=== PATIENT | male | born 1945 | race Caucasian/White ===

== ENCOUNTER → 2018-07-31 | Outpatient (CLI) | payer BC ==
[2018-07-31 11:50] LABS: HCT 45.4 % (39.0-53.0); HGB 14.3 gm/dL (13.0-17.5); MCH 28.7 pg (25.0-35.0); MCHC 31.5 g/dL (31.0-37.0); MCV 91.2 fL (80.0-100.0); Mean Platelet Volume 7.9; Platelet Count 164 k/uL (150-450); RBC 4.98 m/uL (4.30-5.90); RDW 13.1 % (11.5-15.5); WBC 18.7 k/uL (3.8-10.6)
[2018-07-31 13:23] LABS: Erythrocyte Sedimentation Rate 15 mm/hr (0-15)
[2018-07-31 16:52] LABS: C Reactive Protein 26.6 mg/dL (0.0-0.8); Uric Acid 6.6 mg/dL (3.7-8.7)
[2018-08-03 10:35] LABS: Appearance,BF Bloody
[2018-08-03 10:37] LABS: Nucleated Cells, Body Fluid 73500 /uL; RBC, Body Fluid 136500 /uL
[2018-08-03 10:38] LABS: Mononuclear WBC,Body Fluid 16 %; Polynuclear WBC,Body Fluid 83 %
== END | disposition home or self-care (01) ==
LOC: LABWHC1 10:26
PROVIDERS: ATTEND Orthopaedic Surgery
DX: M19.172 Post-traumatic osteoarthritis, left ankle and foot (principal); M10.9 Gout, unspecified; M25.572 Pain in left ankle and joints of left foot; Z98.890 Other specified postprocedural states
CPT/HCPCS: 36415; 84550; 85027; 85652; 86140; 87070; 87075; 87205; 89050; 89060

== ENCOUNTER 2018-08-01 09:58 | Inpatient (IN) | payer BC, MEDICARE ==
[2018-08-01] MEDS ORDERED: SODIUM CHLORIDE 0.9% 1,000 ML IV STA (10:17)
[2018-08-01] MEDS ORDERED: VANCOMYCIN IV PER PHARMACY 1 EACH MISC MISCELLANE PRN ×2 (10:18→17:37)
[2018-08-01] MEDS ORDERED: NALOXONE 0.4 MG/ML 1 ML VIAL IV PRN ×2 (10:19→11:51)
[2018-08-01] MEDS ORDERED: ACETAMINOPHEN TAB 325 MG TAB PO PRN (10:19)
--- NOTE | 2018-08-01 10:28 | ED ---
General Adult HPI - General Chief complaint: Extremity Problem,Nontraumatic Stated complaint: Septic lt ankle Time Seen by Provider: 08/01/18 10:07 Source: patient, RN notes reviewed, old records reviewed Mode of arrival: wheelchair Limitations: no limitations - History of Present Illness Initial comments: 72-year-old male with no significant past medical history presenting for evaluation of left ankle pain and swelling. Patient was sent in by his or thopedic surgeon for surgical washout of septic arthritis left ankle. Patient denies fever or chills. Symptoms have been progressive over the past 4 days. He has pain with ambulation, swelling and erythema of the left ankle. He did have one episode of nausea and vomiting 3 days ago. No other constitutional symptoms. Patient is otherwise healthy, no history diabetes. He had outpatient laboratory studies which showed elevated CRP, elevated white blood cell count. Gram stain of synovial fluid did show a positive cocci and patient was sent to the emergency department for preoperative evaluation. - Related Data Home Medications Medication Instructions Recorded Confirmed Turmeric Root Extract [Turmeric] 500 mg PO DAILY 08/01/18 08/01/18 Allergies Allergy/AdvReac Type Severity Reaction Status Date / Time No Known Allergies Allergy Verified 08/01/18 10:40 Review of Systems ROS Statement: Those systems with pertinent positive or pertinent negative responses have been documented in the HPI. ROS Other: All systems not noted in ROS Statement are negative. Past Medical History Past Medical History: No Reported History History of Any Multi-Drug Resistant Organisms: None Reported Past Surgical History: Orthopedic Surgery Past Psychological History: No Psychological Hx Reported Smoking Status: Never smoker Past Alcohol Use History: None Reported Past Drug Use History: None Reported General Exam Limitations: no limitations General appearance: alert, in no apparent distress Head exam: Present: atraumatic, normocephalic Eye exam: Present: normal appearance, PERRL ENT exam: Present: normal exam Neck exam: Present: normal inspection. Absent: tenderness Respiratory exam: Present: normal lung sounds bilaterally. Absent: respiratory distress, wheezes Cardiovascular Exam: Present: regular rate, normal rhythm GI/Abdominal exam: Present: soft. Absent: distended, tenderness, guarding Extremities exam: Present: joint swelling (Significant swelling and erythema of the left ankle, pain with range of motion, distal pulses are intact, normal cap refill.) Course Vital Signs 08/01/18 10:04 Temperature 98.2 F Pulse Rate 95 Respiratory 18 Rate Blood Pressure 115/70 O2 Sat by Pulse 98 Oximetry EKG Findings - EKG Comments: EKG Findings:: EKG: Normal sinus rhythm, left axis deviation, LVH, no ST segment elevation rate is 76, W[place] interval 150, QRS duration 94, QTC 436. Medical Decision Making - Medical Decision Making 72-year-old male presenting for left septic arthritis. Patient will receive perioperative clearance. EKG, chest x-ray, laboratory studies will be obtained. I did discuss case with Dr. Jaime, patient will be taken urgently to the operating room. We'll hold antibiotics at this time for cultures obtained in the OR. Repeat laboratory studies are pending. Chest x-ray will be obtained preoperatively. Pending - Lab Data Result diagrams: 08/01/18 10:30 Disposition Clinical Impression: Septic arthritis of left ankle Disposition: ADMITTED IP TO THIS HOSP Condition: Stable Is patient prescribed a controlled substance at d/c from ED?: No Decision to Admit Reason: Admit from EC Decision Date: 08/01/18 Decision Time: 10:28
[2018-08-01 10:39] LABS: Basophils % (A) 0 %; Eosinophils # (A) 0.1 k/uL (0-0.7); Eosinophils % (A) 1 %; HCT 43.2 % (39.0-53.0); HGB 14.4 gm/dL (13.0-17.5); Lymphocytes # (A) 0.7 k/uL (1.0-4.8); Lymphocytes % (A) 6 %; MCH 29.7 pg (25.0-35.0); MCHC 33.2 g/dL (31.0-37.0); MCV 89.3 fL (80.0-100.0); Mean Platelet Volume 7.6; Monocytes # (A) 0.7 k/uL (0-1.0); Monocytes % (A) 6 %; Neutrophils # (A) 10.9 k/uL (1.3-7.7); Neutrophils % (A) 86 %; Platelet Count 160 k/uL (150-450); RBC 4.84 m/uL (4.30-5.90); RDW 12.8 % (11.5-15.5); WBC 12.6 k/uL (3.8-10.6)
[2018-08-01 10:56] LABS: INR 0.9 (<1.2); Prothrombin Time 9.9 sec (9.0-12.0)
[2018-08-01 11:04] LABS: Albumin 3.2 g/dL (3.5-5.0); Calcium 8.9 mg/dL (8.4-10.2); Potassium 3.7 mmol/L (3.5-5.1); Total Protein 5.8 g/dL (6.3-8.2)
[2018-08-01] MEDS ORDERED: DIPH,PERTUS(ACELL)TETVAC-LF 0.5 ML VIAL IM ONE (11:12)
--- NOTE | 2018-08-01 11:14 | XR ---
EXAMINATION TYPE: XR chest 2V DATE OF EXAM: 08/01/2018 HISTORY: preop. REFERENCE: NONE. FINDINGS: The heart is mildly enlarged. There is mild vascular congestion without walter edema. Pleura l spaces are clear. IMPRESSION: MILD CARDIOMEGALY AND VASCULAR CONGESTION.
[2018-08-01] MEDS ORDERED: SODIUM CHLORIDE 0.9% 1,000 ML IV ONE (11:27)
[2018-08-01 11:38] LABS: C Reactive Protein 226.6 mg/L (<10.0)
--- NOTE | 2018-08-01 11:44 | P.HPOR ---
History of Present Illness H&P Date: 08/01/18 The patient is a very pleasant previously healthy 72-year-old male who is had a long-standing history of problems with his left ankle. The patient sustained a left ankle fracture close to 30 years ago area he underwent open reduction and internal fixation of both the medial and lateral malleolus at that time. He also required skin grafting over the lateral malleolus. He initially did well with no perioperative complications but over the years developed progressively worsening posttraumatic ankle arthritis. I've been seeing him for his ankle arthritis for the last several years. He was planning on having a total ankle replacement this coming summer. Over the last several days he has had increasing pain and swelling in the left ankle. He also reports feeling chills, a light fever, and generalized malaise. He developed increased pain to the point that he had difficulty walking. He presented to my office yesterday. His ankle was aspirated and a large amount of cloudy fluid was aspirated and sent to the lab. The initial laboratory analysis came back with abundant calcium pyroph osphate crystals. The patient was started on an NSAID. In addition to the lab finding calcium pyrophosphate crystals, I was called later in the evening and the synovial white count came back at 77,000 and the microbiologist noted Gram- positive cocci. The patient was called this morning and sent to the emergency department for a direct admission, incision and drainage in the operating room, and IV antibiotics. He continues to have pain and swelling in the left ankle. Past Medical History Past Medical History: No Reported History History of Any Multi-Drug Resistant Organisms: None Reported Past Surgical History: Orthopedic Surgery Past Psychological History: No Psychological Hx Reported Smoking Status: Never smoker Past Alcohol Use History: None Reported Past Drug Use History: None Reported Medications and Allergies Home Medications Medication Instructions Recorded Confirmed Type Turmeric Root Extract [Turmeric] 500 mg PO DAILY 08/01/18 08/01/18 History Allergies Allergy/AdvReac Type Severity Reaction Status Date / Time No Known Allergies Allergy Verified 08/01/18 10:40 Physical Examination A focused examination of the left ankle was conducted. On inspection there is diffuse swelling, erythema, and tenderness diffusely over the ankle. There is a healed incision over the medial malleolus. There is a healed skin graft over the lateral malleolus. There is exquisite pain with any attempts at range of motion of the ankle. Results The patient's lab work from yesterday included an elevated WBC count of 17 and a CRP of 26. Synovial fluid analysis showed a cell count of 77,000 and abundant calcium pyrophosphate crystals. The Gram stain showed gram-positive cocci. Cultures are still pending. X-rays from the office showed a healed bimalleolar ankle fracture with 2 screws in the medial malleolus, a plate and screw in the lateral malleolus and severe arthritis in the ankle. - Labs Labs: Abnormal Lab Results - Last 24 Hours (Table) 08/01/18 Range/Units 10:30 WBC 12.6 H (3.8-10.6) k/uL Neutrophils # 10.9 H (1.3-7.7) k/uL Lymphocytes # 0.7 L (1.0-4.8) k/uL H & H 08/01/18 Range/Units 10:30 Hgb 14.4 (13.0-17.5) gm/dL Hct 43.2 (39.0-53.0) % Coagulation 08/01/18 Range/Units 10:30 INR 0.9 (<1.2) Result Diagrams: 08/01/18 10:30 Assessment and Plan (1) Septic arthritis of left ankle Current Visit: Yes Status: Acute Code(s): M00.9 - PYOGENIC ARTHRITIS, UNSPECIFIED SNOMED Code(s): 56801072 Plan: I had a lengthy discussion with the patient on treatment options. The patient's clinical picture is consistent with both pseudogout and septic arthritis as he has both an elevated nucleated cell count of 77,000, calcium pyrophosphate crystals, and gram-positive cocci on Gram stain. My recommendation was to take the patient to the operating room and thoroughly irrigate and debride his joint. We will also take out the medial screws. Since the patient has acute onset pain and swelling and there is a skin graft over the lateral malleolus we discussed not taking out the lateral plate and screws at this time. We discussed the potential risks and Locations of surgery including but not limited to risk of anesthesia, superficial infection, deep infection, delayed wound healing, intraoperative fracture, postoperative fracture, continued infection requiring further workup and possibly more surgery, medical complications, and possibly loss of life or limb. The patient voiced his understanding of this and agreed to go forward with surgery. Following surgery the patient will be ad mitted under my care. We will request the assistance of infectious disease to guide trace of antibiotic, route of administration, and duration of treatment. Time with Patient: Greater than 30
[2018-08-01] MEDS ORDERED: SUCCINYLCHOLINE CHLORIDE 100 MG/5 ML SYR IV ONE (11:45)
[2018-08-01] MEDS ORDERED: PROPOFOL 10 MG/ML 20 ML VIAL IV ONE (11:45)
[2018-08-01] MEDS ORDERED: MIDAZOLAM 2 MG/2 ML VIAL ONE (11:45)
[2018-08-01] MEDS ORDERED: fentaNYL (PF) 50 MCG/ML 2 ML AMP ONE (11:45)
[2018-08-01] MEDS ORDERED: LIDOCAINE 1% INJ 10MG/ML (20 ML MDV) ONE (11:45)
[2018-08-01] MEDS ORDERED: ONDANSETRON 4 MG/2 ML VIAL ONE (11:45)
[2018-08-01] MEDS ORDERED: HYDROmorphone 0.5 MG/0.5 ML SYRINGE IVP PRN (11:51)
[2018-08-01] MEDS ORDERED: SODIUM CHLORIDE 0.9% 50 ML with ceFAZolin 2,000 MG IV ONE ×2 (12:13)
--- NOTE | 2018-08-01 13:03 | P.OP ---
Date of Procedure: 08/01/18 Preoperative Diagnosis: 1. Left septic ankle arthritis 2. Pre-existing left posttraumatic ankle arthritis Postoperative Diagnosis: Same Procedure(s) Performed: 1. Hardware removal deep, left ankle 2. Incision and drainage, left ankle 3. Irrigation and debridement, left ankle Anesthesia: VANESA Surgeon: Harjeet Jaime Estimated Blood Loss (ml): 25 IV fluids (ml): 750 Pathology: other (Deep cultures and tissue cultures sent to microbiology) Condition: stable Disposition: PACU Indications for Procedure: The patient is a very pleasant 72-year-old male with a long-standing history of problems with his left ankle. The patient sustained an ankle fracture 30 years ago postoperatively managed. He went on to develop posttraumatic ankle arthritis which I been managing. Over the last several days he developed increasing pain, redness, and swelling in the left ankle. He got to the point that the pain became so severe he had difficulty standing and walking. He presented to my office yesterday where his ankle was aspirated and sent to the lab. Initial lab results included extremely elevated calcium pyrophosphate crystals, gram-positive cocci on Gram stain, and elevated nucleated cell count of 77,000. He also had an elevated white blood count and CRP level. He was sent to the emergency department this morning and directed to the operating room. I met with the patient and his preoperatively to discuss treatment. My recommendation was to open the ankle and drain the infection. We discussed all the potential risks and complications including continued infection and need for further treatment. The patient provided his consent to go forward with surgery. Operative Findings: There was a large amount of cloudy, purulent fluid from inside the ankle joint that was more consistent with infection than crystalline arthropathy . Description of Procedure: The patient was identified in preoperative holding and the correct left ankle was marked with my initials. The patient was then brought back to the operating room by anesthesia. He was positioned on the OR table where a general anesthetic was administered. The left leg was then prepped and draped in the standard sterile fashion. A timeout was performed identifying the correct patient, operative extremity, and procedure. The patient's leg was then elevated for 2 minutes and the tourniquet was inflated to 250 mmHg. I began by outlining the scar over the medial malleolus with a skin marker. A 15 blade scalpel was used to make an incision directly over the scar. Dissection was carried down carefully to the subcutaneous tissue with tenotomy scissors. The ankle capsule was identified and sharply incised. There was a large brar of cloudy, purulent fluid. Culture swabs were then used to take deep cultures from inside the ankle joint. A small amount of the capsule was also sharply debrided and sent to pathology for cultures. Immediately after cultures were taken and antibiotics were given by anesthesia. Nonviable-appearing subcutaneous tissue, fat, and joint capsule were sharply debrided with a scalpel down to the level of the ankle joint. The wound was then thoroughly irrigated with 3 L of sterile saline and cystoscopy tubing. A 1/8 inch fenestrated drain was passed through the ankle joint and out the lateral capsule of the ankle. The capsule was closed using 0 Prolene. The deep subcutaneous tissue was closed using 2-0 Prolene, and the skin was closed using 3-0 nylon. The Hemovac drain was attached to its tubing. A sterile dressing and Jason wrap was applied. The patient was awoken from his anesthetic, transferred to a gurney, and brought to PACU without the procedure well. Plan: The patient is going to be admitted under my care. He can weight-bear as tolerated in a tall boot. Multiple sets of deep cultures have been taken and we are awaiting final results. Internal medicine has been consulted to help assist with perioperative medical management. Infectious disease has been consulted to assist with choice of antibiotic, route of administration, and duration of treatment.
--- NOTE | 2018-08-01 13:41 | FL ---
FLUOROSCOPY 2 seconds of fluoroscopy time were utilized during left ankle screw removal. 1 images document the pr ocedure.
[2018-08-01] MEDS: HYDROcodone/APAP 5-325MG 1 EACH TAB PO PRN ×2 (14:02→21:39)
[2018-08-01 14:10] LABS: Erythrocyte Sedimentation Rate 28 mm/hr (0-15)
[2018-08-01] MEDS ORDERED: VANCOMYCIN 1,750 MG in SODIUM CHLORIDE 0.9% 500 ML 500 ML IVPB STA (17:52)
[2018-08-02] MEDS ORDERED: VANCOMYCIN 1,750 MG in SODIUM CHLORIDE 0.9% 500 ML 500 ML IVPB SCH (06:00)
[2018-08-02] MEDS: HYDROcodone/APAP 5-325MG 1 EACH TAB PO PRN ×2 (08:10→16:11)
--- NOTE | 2018-08-02 08:48 | CONS ---
CONSULTATION DATE OF SERVICE: 08/01/2018. REASON FOR CONSULTATION: Left knee septic arthritis. HISTORY OF PRESENT ILLNESS: The patient is a 72-year-old, male with a past medical history significant for left ankle fracture that has been treated surgically about 30 years ago with insertion of hardware. The patient apparently has been dealing with pain, arthritis to the left ankle area and has been managed in outpatient setting by Dr. Medrano. The patient is still having a problem with the left ankle with increasing pain, redness and swelling that has been going on for the last few days. The patient denies a history of trauma or twisting of his ankle. The patient describes the pain to the left ankle area to be throbbing to sharp, almost 8 to 9/10, with no radiation with associated swelling and redness and warm to touch and the pain has been worse with walking, some relief with rest or elevation. With these symptoms, the patient was seen in the outpatient setting by Dr. Medrano. The patient did have aspirate of the left ankle with the Gram stain shows gram[place] [id number]. Subsequently the patient has been slated to go to the ER. The patient was admitted to hospital, taken to the OR and the patient was noticed to have an infected left ankle area. The patient is status post I and D of the left ankle with removal of hardware and deep cultures. The patient did receive a dose of cefazolin preoperatively and admitted to the hospital. Infectious Disease was consulted for further recommendation regarding antibiotic therapy. REVIEW OF SYSTEMS: CONSTITUTIONAL: Positive for weakness along with chills. EYES: No complaint. ENT: No complaint. RESPIRATORY: No complaint. CARDIOVASCULAR: No complaint. GENITOURINARY: No complaint. GASTROINTESTINAL: No complaint. MUSCULOSKELETAL: As per HPI. INTEGUMENTARY: As per HPI. PSYCHOLOGICAL: No complaint. ENDOCRINE: No complaint. NEUROLOGICAL: No complaint. PAST MEDICAL HISTORY: Left ankle fracture and left osteoarthritis. PAST SURGICAL HISTORY: Left ankle fracture repair. SOCIAL HISTORY: Denies smoking, drinking or drug use. FAMILY HISTORY: No pertinent findings noticed. ALLERGIES: No known drug allergies. MEDICATION: Medications include the patient is currently on Tylenol, [place], Dilaudid, Narcan, and cefazolin . PHYSICAL EXAMINATION: Blood pressure 102/62 with a pulse of 84, temperature 98.7. He is 93% on room air. General description is an elderly male lying in bed in no distress. No tachypnea or accessory muscle of respiration use. HEENT: Shows no pallor or scleral icterus. Oral mucosa membrane is dry. No pharyngeal erythema or thrush. NECK: Trachea central. No thyromegaly. LUNGS: Unlabored breathing. Clear to auscultation anteriorly. No wheeze or crackle. HEART: S1, S2. Regular rate and rhythm. ABDOMEN: Soft, no tenderness. No rigidity. EXTREMITIES: No edema feet. Examination of the left ankle currently status postoperative with dressing with no drainage on the dressing. NEUROLOGICALLY: The patient is awake, alert, oriented x3. Mood and affect normal. LABS: Hemoglobin 14.4, white count 4.6, BUN of 26, creatinine 1.2. Sed rate was 28, CRP elevated at 226. Cultures currently pending. DIAGNOSTIC IMPRESSION AND PLAN: Patient with left ankle septic arthritis with underlying infected hardware status post removal of the same with Gram stain done yesterday shows evidence of gram-positive cocci with elevated joint fluid, white count of 77,000 with concern likely septic arthritis and possible Staph aureus with question of possible MRSA versus MSSA. PLAN: 1. Vancomycin, pharmacy to dose, target trough of 15 while watching his kidney function closely. 2. Blood culture has been obtained to make sure the patient is not bacteremic. 3. If the blood cultures remains negative the patient may need a PICC line for outpatient IV antibiotic therapy which will be hopefully arranged on Friday. 4. We will follow up on clinical condition and culture to adjust the medication further if needed. Thank you for this consultation. Will follow this patient along with you. MMODL / IJN: [id number] /
[2018-08-02] MEDS: TAMSULOSIN 0.4 MG CAP.ER.24H PO SCH ×2 (08:55→16:08)
[2018-08-02] MEDS: ENOXAPARIN 40 MG/0.4 ML SYRINGE SQ SCH (09:02)
--- NOTE | 2018-08-02 09:48 | P.PN ---
Subjective Progress Note Date: 08/02/18 Principal diagnosis: Septic left ankle s/p removal of hardware and I&D Patient is seen at bedside this morning. He is postop day #1 from removal of hardware/I&D left ankle for suspected septic left ankle. He has pain at the surgical site as expected but denies any new complaints. He denies numbness, tingling or calf pain. Review of systems is negative for fever, chills, chest pain, shortness of breath or other Objective - Vital Signs Vital signs: Vital Signs Temp 98.0 F 08/02/18 08:11 Pulse 80 08/02/18 08:11 Resp 16 08/02/18 08:11 BP 108/64 08/02/18 08:11 Pulse Ox 96 08/02/18 08:11 Intake & Output 08/01/18 08/02/18 08/02/18 18:59 06:59 18:59 Intake Total 750 1100 980 Output Total 25 1502 Balance 725 -402 980 Weight 104.326 kg Intake: IV 750 Intake, IV Titration 1100 500 Amount Sodium Chloride 0.9% 1, 600 000 ml @ 75 mls/hr IV . [id number] STA Rx#:[id number] Vancomycin 1,750 mg In 500 500 Sodium Chloride 0.9% 500 ml 500 ml @ 167 mls/hr IVPB Q16H [facility] Rx#: [id number] Oral 480 Output: Drainage 2 Left Ankle 2 Urine 1500 Straight 1200 Estimated Blood Loss 25 Other: # Voids 0 - Exam Inspection reveals a benign surgical wound. There is bandage intact with drain in place. Drain has minimal output. There is no evidence of active bleeding or drainage through bandage. Neurovascular status is intact throughout the lower extremity with motor and sensation fully intact. Calf is soft and nontender. 2+ dorsalis pedis pulse and less than 2 second cap refill is present. - Constitutional General appearance: Present: no acute distress - Labs CBC & Chem 7: 08/01/18 10:30 08/01/18 10:30 Labs: Abnormal Lab Results - Last 24 Hours (Table) 08/01/18 08/01/18 Range/Units 10:30 10:30 WBC 12.6 H (3.8-10.6) k/uL Neutrophils # 10.9 H (1.3-7.7) k/uL Lymphocytes # 0.7 L (1.0-4.8) k/uL ESR 28 H (0-15) mm/hr BUN 36 H (9-20) mg/dL C-Reactive Protein 226.6 H (<10.0) mg/L Total Protein 5.8 L (6.3-8.2) g/dL Albumin 3.2 L (3.5-5.0) g/dL Microbiology - Last 24 Hours (Table) 08/01/18 12:10 Gram Stain - Preliminary Ankle - Left Tissue Culture - Preliminary Strep agalactiae - (group b) 08/01/18 12:10 Gram Stain - Preliminary Ankle - Left Wound Culture - Preliminary Strep agalactiae - (group b) 08/01/18 12:10 Gram Stain - Preliminary Ankle - Left Wound Culture - Preliminary Strep agalactiae - (group b) 08/01/18 12:10 Anaerobic Culture - Preliminary Ankle - Left 08/01/18 12:10 Anaerobic Culture - Preliminary Ankle - Left 08/01/18 12:10 Anaerobic Culture - Preliminary Ankle - Left Assessment and Plan (1) Septic arthritis of left ankle Narrative/Plan: Patient is doing well today. He will continue with routine postop orthopedic protocol including pain management, wound care, DVT prophylaxis and medical management. Infectious disease has consulted. Cultures are pending. Boot will be ordered and he may be weightbearing in boot only. Will make further recommendations as appropriate based on clinical course. Current Visit: Yes Status: Acute Priority: Medium Code(s): M00.9 - PYOGENIC ARTHRITIS, UNSPECIFIED SNOMED Code(s): 07074364 Time with Patient: Less than 30
--- NOTE | 2018-08-02 10:31 | P.CONS ---
History of Present Illness - Reason for Consult Consult date: 08/02/18 Medical management - History of Present Illness This is a pleasant 72-year-old gentleman who had a long-standing h istory of problems with his left ankle. Approximately 30 years ago, patient has sustained a left ankle fracture and underwent an open reduction with internal fixation of both the medial and lateral malleolus at that time. He also required skin grafting over the lateral malleolus. 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 He has been following up with Dr. Jaime for the ankle arthritis for several years. She was planning on having a total ankle replacement this summer. However over the last few days he experienced increased pain and swelling in the left ankle. He reported chills a light fever and generalized weakness. He had increased pain to the point that he found it difficult to walk. And presented to the orthopod's office for evaluation. In the office the ankle was aspirated and a large amount of cloudy fluid was removed and sent to lab. Analysis came back with abundant amount of calcium pyrophosphate crystals and synovial white count at 77,000 with gram-positive cocci. Patient underwent a incision and drainage in the operating room is placed on IV antibiotics. Patient denies any past medical history. Patient does complain of urinary retention and prostate related urinary difficulties that he uses a natural supplement. This morning patient is resting comfortably in bed with dressing and drain in place. Residual drainage noted in the drain. Patient is complaining of urinary retention bladder scan shows greater than 600 mL of urine, straight cath performed 2. Patient denies any pain with urination. Patient denies any fever, chills, malaise at this time. Review of Systems Review Of Systems: Constitutional: No fever, no chills, no night sweats. No weight change. No weakness, fatigue or lethargy. No daytime sleepiness. EENT: No headache. No blurred vision or double vision, no loss of vision. No loss of Hearing, no ringing in the ears, no dizziness. No nasal drainage or congestion. No epistaxis. No sore throat. Lungs: No shortness of breath, cough, no sputum production. No wheezing. Cardiovascular: No chest pain, no lower extremity edema. No palpitations. No paroxysmal nocturnal dyspnea. No orthopnea. No lightheadedness or dizziness. No syncopal episodes. Abdominal: no abdominal discomfort. No nausea, vomiting. no diarrhea. No constipation. No bloody or tarry stools. improved loss of appetite. Genitourinary: No dysuria, no frequency, no urgency. + urinary retention. Musculoskeletal: No myalgias. No muscle weakness, + gait dysfunction, no frequent falls. No back pain. No neck pain. Integumentary: No wounds, no lesions. No rash or pruritus. No unusual bruising. No change in hair or nails. Neurologic: No aphasia. No facial droop. No change in mentation. No head injury. No headache. No paralysis. No paresthesia. Psychiatric: No depression. No anxiety. No mood swings. Endocrine: No abnormal blood sugars. No weight change. No excessive sweating or thirst. Past Medical History Past Medical History: No Reported History, Prostate Disorder Additional Past Medical History / Comment(s): Gout History of Any Multi-Drug Resistant Organisms: None Reported Past Surgical History: Orthopedic Surgery Past Anesthesia/Blood Transfusion Reactions: No Reported Reaction Past Psychological History: No Psychological Hx Reported Smoking Status: Never smoker Past Alcohol Use History: None Reported Past Drug Use History: None Reported Additional History: Family history: Mom at 87 related to lung issues, dad 88 related to age. One brother-healthy, 1 sister- from metastatic lung cancer. 2 children-healthy. Currently works 28-30 hours a week at [employer]. Medications and Allergies Home Medications Medication Instructions Recorded Confirmed Type Turmeric Root Extract [Turmeric] 500 mg PO DAILY 08/01/18 08/01/18 History Allergies Allergy/AdvReac Type Severity Reaction Status Date / Time No Known Allergies Allergy Verified 08/01/18 10:40 Physical Exam Vitals: Vital Signs Temp Pulse Pulse Pulse Resp BP BP 08/02/18 08:11 98.0 F 80 16 108/64 08/02/18 02:40 98.1 F 83 17 105/59 08/01/18 19:15 98.7 F 84 17 102/62 08/01/18 19:10 18 08/01/18 15:30 88 109/69 08/01/18 15:15 88 109/62 08/01/18 15:00 89 112/72 08/01/18 14:45 92 118/73 08/01/18 14:30 96 117/70 03/23/19 14:15 91 127/75 08/01/18 14:00 89 137/76 08/01/18 13:45 92 145/81 08/01/18 13:30 98.3 F 99 16 143/76 08/01/18 13:22 92 16 154/67 08/01/18 13:10 103 H 16 163/93 08/01/18 12:55 98.3 F 100 16 124/75 08/01/18 11:29 85 116/71 08/01/18 11:23 98.8 F 84 18 119/65 Pulse Ox 08/02/18 08:11 96 08/02/18 02:40 95 08/01/18 19:15 96 08/01/18 19:10 08/01/18 15:30 08/01/18 15:15 08/01/18 15:00 08/01/18 14:45 08/01/18 14:30 08/01/18 14:15 08/01/18 14:00 08/01/18 13:45 08/01/18 13:30 97 08/01/18 13:22 95 08/01/18 13:10 94 L 08/01/18 12:55 92 L 08/01/18 11:29 96 08/01/18 11:23 98 Intake and Output 08/01/18 08/02/18 08/02/18 22:59 06:59 14:59 Intake Total 1100 980 Output Total 902 600 Balance 198 -600 980 Intake: Intake, IV Titration 1100 500 Amount Sodium Chloride 0.9% 1, 600 000 ml @ 75 mls/hr IV . [id number] STA Rx#:[id number] Vancomycin 1,750 mg In 500 500 Sodium Chloride 0.9% 500 ml 500 ml @ 167 mls/hr IVPB Q16H [facility] Rx#: [id number] Oral 480 Output: Drainage 2 Left Ankle 2 Urine 900 600 Straight 900 300 Other: # Voids 0 General Appearance: Alert, cooperative, no distress, appears stated age. Neck HEENT: Supple, no lymphadenopathy, no thyroid enlargement, no carotid bruits. Lungs: Clear to auscultation without crackles or wheezes no rhonchi, no d eformity. Chest Wall: Chest wall normal expansion with deep inspiration no tenderness and no deformity was found on exam, no costochondral pain or discomfort. Heart: Regular rate and rhythm, S1, S2 normal, no murmur, rub or gallop. Back: Symmetric, no curvature, ROM normal, no CVA tenderness. Abdomen: Soft, non-tender, no rebound or rigidity, no hepatosplenomegaly. Extremities: Remedies dressing and drainage placed clean and dry dressing is noted to have residual sanguinous drainage, 1+ edema to left lower extremity, no edema to right lower extremity, no cyanosis. Pulses: 2+ and symmetric. Skin: Skin color, texture, tugor normal, no rashes or lesions. Neurologic: Alert oriented x3 cranial nerves II through XII intact, no motor deficit, no abnormal balance or gait Results CBC & Chem 7: 08/01/18 10:30 08/01/18 10:30 Labs: Abnormal Lab Results - Last 24 Hours (Table) 08/01/18 08/01/18 Range/Units 10:30 10:30 WBC 12.6 H (3.8-10.6) k/uL Neutrophils # 10.9 H (1.3-7.7) k/uL Lymphocytes # 0.7 L (1.0-4.8) k/uL ESR 28 H (0-15) mm/hr BUN 36 H (9-20) mg/dL C-Reactive Protein 226.6 H (<10.0) mg/L Total Protein 5.8 L (6.3-8.2) g/dL Albumin 3.2 L (3.5-5.0) g/dL Microbiology - Last 24 Hours (Table) 08/01/18 12:10 Gram Stain - Preliminary Ankle - Left Tissue Culture - Preliminary Strep agalactiae - (group b) 08/01/18 12:10 Gram Stain - Preliminary Ankle - Left Wound Culture - Preliminary Strep agalactiae - (group b) 08/01/18 12:10 Gram Stain - Preliminary Ankle - Left Wound Culture - Preliminary Strep agalactiae - (group b) 08/01/18 12:10 Anaerobic Culture - Preliminary Ankle - Left 08/01/18 12:10 Anaerobic Culture - Preliminary Ankle - Left 08/01/18 12:10 Anaerobic Culture - Preliminary Ankle - Left Assessment and Plan Plan: 1. Septic arthritis of left ankle. Postsurgical intervention of hardware removal, incision and drainage and irrigation and debridement of left ankle. Dressing and drain in place. Continue vancomycin. Continue pain management of [place], Tylenol, Dilaudid as needed. 2. Urinary retention. Start Flomax 0.4 mg twice a day today and then once daily. Continue to bladder scan and straight cath as needed. 3. Gout. Uric acid, sed rate, C-reactive protein ordered. 4. BPH. As noted above. 5. DVT prophylaxis. Lovenox 40 mg subcu daily. 6. GI prophylaxis. Protonix. Discharge plan: Possibly home with continued IV antibiotics. Impression and plan of care have been directed as dictated by the signing physician. Denae Escobar nurse practitioner acting as scribe for signing physician.
[2018-08-02] MEDS ORDERED: PANTOPRAZOLE 40 MG/10 ML VIAL IVP SCH (10:45)
[2018-08-02] MEDS: ceFAZolin IN SWFI 2 GM/20 ML SYRINGE IVP SCH (16:09)
[2018-08-02] MEDS ORDERED: TAMSULOSIN 0.4 MG CAP.ER.24H PO SCH (18:30)
--- NOTE | 2018-08-02 22:46 | PN ---
PROGRESS NOTE DATE OF SERVICE: 07/05/2018 REASON FOR FOLLOWUP: Left ankle septic arthritis. INTERVAL HISTORY: The patient is currently afebrile. He is breathing comfortably. Pain to the left leg is currently improved. Denies any chest pain, shortness of breath or cough. No abdominal pain or diarrhea. PHYSICAL EXAMINATION: Blood pressure 107/64 with a pulse of 84, temperature 98.6; he is 93% on room air. General description is an elderly male lying in bed in no distress. Respiratory system: Unlabored breathing, clear to auscultation anteriorly. Heart S1, S2. Regular rate and rhythm. Abdomen soft, no tenderness. Left leg is currently dressed. No obvious drainage on the dressing. LABS: Hemoglobin is 14.4, white count 12.3, BUN of 26, creatinine 1.22. DIAGNOSTIC IMPRESSION AND PLAN: Patient with left ankle septic arthritis status post I and D and removal of the hardware on the lateral side with the culture showing group B strep. Antibiotic will be switched to cefazolin 2 g q.8 hours. The patient will get a PICC line tomorrow for continuation of IV antibiotic therapy in the outpatient setting for at least 6 weeks with weekly monitoring of CBC, BMP and sed rate. Questions were answered. MMODL / IJN: [id number] /
[2018-08-03] MEDS: ceFAZolin IN SWFI 2 GM/20 ML SYRINGE IVP SCH ×4 (00:10→23:54)
[2018-08-03] MEDS: HYDROcodone/APAP 5-325MG 1 EACH TAB PO PRN ×4 (00:35→22:13)
[2018-08-03] MEDS: TAMSULOSIN 0.4 MG CAP.ER.24H PO SCH (08:23)
[2018-08-03] MEDS: PANTOPRAZOLE 40 MG TABLET PO SCH (08:24)
[2018-08-03] MEDS: ENOXAPARIN 40 MG/0.4 ML SYRINGE SQ SCH (08:25)
[2018-08-03 08:28] LABS: Basophils % (A) 0 %; Eosinophils # (A) 0.4 k/uL (0-0.7); Eosinophils % (A) 5 %; HCT 39.1 % (39.0-53.0); HGB 12.8 gm/dL (13.0-17.5); Lymphocytes # (A) 1.1 k/uL (1.0-4.8); Lymphocytes % (A) 14 %; MCH 29.4 pg (25.0-35.0); MCHC 32.6 g/dL (31.0-37.0); MCV 89.9 fL (80.0-100.0); Mean Platelet Volume 8.2; Monocytes # (A) 0.5 k/uL (0-1.0); Monocytes % (A) 6 %; Neutrophils # (A) 5.6 k/uL (1.3-7.7); Neutrophils % (A) 72 %; Platelet Count 204 k/uL (150-450); RBC 4.35 m/uL (4.30-5.90); RDW 13.3 % (11.5-15.5); WBC 7.7 k/uL (3.8-10.6)
[2018-08-03 08:44] LABS: Calcium 8.3 mg/dL (8.4-10.2); Potassium 4.5 mmol/L (3.5-5.1); Uric Acid 5.2 mg/dL (3.5-8.5)
[2018-08-03 11:25] LABS: C Reactive Protein 164.1 mg/L (<10.0)
[2018-08-03 11:47] LABS: Erythrocyte Sedimentation Rate 53 mm/hr (0-15)
--- NOTE | 2018-08-03 13:08 | P.PN ---
Subjective Progress Note Date: 08/03/18 This patient is a 72-year-old male with a long-standing history of problems with his left ankle. He was seen as an outpatient by Dr. Jaime, and was seen in the office last week when his ankle was aspirated and sent to the lab. Initial lab results included extremely elevated calcium pyrophosphate crystals, gram- positive cocci on Gram stain, and elevated nucleated cell count of 77,000. He also had an elevated white blood count and CRP level. He was sent to the emergency department Friday morning and was directed to the operating room for a hardware removal and I and D of the left ankle with Dr. Jaime on 08/01/18. Today is post-operative day #2. Patient is examined bedside this morning. The patient states he is doing well, his pain is well-controlled currently. He has not yet been up walking yet, he states it is hard to get the equalizer boot on with the drain in place. He denies fevers, chills, or malaise. He denies nausea, vomiting. He denies numbness, tingling of the left lower extremity. He has no new concerns or complaints today. Vital signs stable. Objective - Vital Signs Vital signs: Vital Signs Temp 98.2 F 08/03/18 07:11 Pulse 80 08/03/18 07:11 Resp 17 08/03/18 02:30 BP 138/75 08/03/18 07:11 Pulse Ox 94 L 08/03/18 07:11 Intake & Output 08/02/18 08/03/18 08/03/18 18:59 06:59 18:59 Intake Total 1180 1250 Output Total 1200 1600 Balance -20 -350 Intake: Intake, IV Titration 500 1150 Amount Sodium Chloride 0.9% 1, 150 000 ml @ 75 mls/hr IV . [id number] STA Rx#:[id number] Sodium Chloride 0.9% 50 1000 ml @ 0 mls/hr IV .STK-MED ONE with ceFAZolin 2,000 mg Rx#:[id number] Vancomycin 1,750 mg In 500 Sodium Chloride 0.9% 500 ml 500 ml @ 167 mls/hr IVPB Q16H [facility] Rx#: [id number] Oral 480 100 Other 200 Output: Urine 1200 1600 Straight 1200 700 - Exam On examination, the patient is sitting up in bed in no acute distress. The patient is alert and orientated x3. On inspection of the left lower extremity, there is an TIFFANIE wrap in place. Dressing is taken down and reveals a drain in place of the medial ankle, and intact sutures on the lateral ankle. There is no surrounding erythema, warmth, or drainage from the incisions. Patient is able to wiggle his toes without issue. Right foot is warm and well-perfused with brisk capillary refill. Neurovascular is intact of the right lower extremity. Right calf is soft and nontender. Drain has minimal output and is removed. - Labs CBC & Chem 7: 08/03/18 07:46 08/03/18 07:46 Labs: Abnormal Lab Results - Last 24 Hours (Table) 08/03/18 08/03/18 Range/Units 07:46 07:46 Hgb 12.8 L (13.0-17.5) gm/dL ESR 53 H (0-15) mm/hr BUN 25 H (9-20) mg/dL Glucose 135 H (74-99) mg/dL Calcium 8.3 L (8.4-10.2) mg/dL C-Reactive Protein 164.1 H (<10.0) mg/L Microbiology - Last 24 Hours (Table) 08/01/18 10:30 Blood Culture - Preliminary Blood No Growth after 48 hours 08/01/18 12:10 Gram Stain - Final Ankle - Left Tissue Culture - Final Strep agalactiae - (group b) 08/01/18 12:10 Gram Stain - Final Ankle - Left Wound Culture - Final Strep agalactiae - (group b) 08/01/18 12:10 Gram Stain - Final Ankle - Left Wound Culture - Final Strep agalactiae - (group b) Assessment and Plan Assessment: Post operative day #2: Septic left ankle s/p removal of hardware and I&D Plan: - Weight bearing as tolerated in equalizer boot only. Dressing changed today and drain removed. - Continue pain management and DVT prophylaxis. - Physical therapy consulted for gait training. - Appreciate medicine and infectious disease consults. Antibiotics per infectious disease, cultures showing group B strep. - Possible discharge within next [address] Jaime.
--- NOTE | 2018-08-03 14:55 | P.PN ---
Subjective Progress Note Date: 08/03/18 This is a pleasant 72-year-old gentleman who had a long-standing history of problems with his left ankle. Approximately 30 years ago, patient has sustained a left ankle fracture and underwent an open reduction with internal fixation of both the medial and lateral malleolus at that time. He als o required skin grafting over the lateral malleolus. 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 He has been following up with Dr. Jaime for the ankle arthritis for several years. She was planning on having a total ankle replacement this summer. However over the last few days he experienced increased pain and swelling in the left ankle. He reported chills a light fever and generalized weakness. He had increased pain to the point that he found it difficult to walk. And presented to the orthopod's office for evaluation. In the office the ankle was aspirated and a large amount of cloudy fluid was removed and sent to lab. Analysis came back with abundant amount of calcium pyrophosphate crystals and synovial white count at 77,000 with gram-positive cocci. Patient underwent a incision and drainage in the operating room is placed on IV antibiotics. Patient denies any past medical history. Patient does complain of urinary retention and prostate related urinary difficulties that he uses a natural supplement. This morning patient is resting comfortably in bed with dressing and drain in place. Residual drainage noted in the drain. Patient is complaining of urinary retention bladder scan shows greater than 600 mL of urine, straight cath performed 2. Patient denies any pain with urination. Patient denies any fever, chills, malaise at this time. 08/03: Patient is currently on Kefzol management Dr. Polk. Plan is for him have a PICC line placed tomorrow and discharged home on IV antibiotics. Temperature max is afternoon 101.1 the blood pressure 130/71, pulse ox 93% on room air. Patient did require straight catheterization 2 times during the night for 400 mL to 900 ML's. Plan today is to increase activity improve her for discharge possibly tomorrow. Review of Systems Review Of Systems: Constitutional: No fever, no chills, no night sweats. No weight change. No weakness, fatigue or lethargy. No daytime sleepiness. EENT: No headache. No blurred vision or double vision, no loss of vision. No loss of Hearing, no ringing in the ears, no dizziness. No nasal drainage or congestion. No epistaxis. No sore throat. Lungs: No shortness of breath, cough, no sputum production. No wheezing. Cardiovascular: No chest pain, no lower extremity edema. No palpitations. No paroxysmal nocturnal dyspnea. No orthopnea. No lightheadedness or dizziness. No syncopal episodes. Abdominal: no abdominal discomfort. No nausea, vomiting. no diarrhea. No constipation. No bloody or tarry stools. improved loss of appetite. Genitourinary: No dysuria, no frequency, no urgency. + urinary retention. Musculoskeletal: No myalgias. No muscle weakness, + gait dysfunction, no frequent falls. No back pain. No neck pain. Integumentary: No wounds, no lesions. No rash or pruritus. No unusual bruising. No change in hair or nails. Neurologic: No aphasia. No facial droop. No change in mentation. No head injury. No headache. No paralysis. No paresthesia. Psychiatric: No depression. No anxiety. No mood swings. Endocrine: No abnormal blood sugars. No weight change. No excessive sweating or thirst. Objective - Vital Signs Vital signs: Vital Signs Temp 101.1 F H 08/03/18 14:34 Pulse 97 08/03/18 14:34 Resp 17 08/03/18 02:30 BP 138/71 08/03/18 14:34 Pulse Ox 93 L 08/03/18 14:34 Intake & Output 08/02/18 08/03/18 08/03/18 18:59 06:59 18:59 Intake Total 1180 1250 Output Total 1200 1600 700 Balance -20 -350 -700 Intake: Intake, IV Titration 500 1150 Amount Sodium Chloride 0.9% 1, 150 000 ml @ 75 mls/hr IV . [id number] [facility]A Rx#:[id number] Sodium Chloride 0.9% 50 1000 ml @ 0 mls/hr IV .STK-MED ONE with ceFAZolin 2,000 mg Rx#:[id number] Vancomycin 1,750 mg In 500 Sodium Chloride 0.9% 500 ml 500 ml @ 167 mls/hr IVPB Q16H [facility] Rx#: [id number] Oral 480 100 Other 200 Output: Urine 1200 1600 700 Straight 1200 700 700 - Exam General Appearance: Alert, cooperative, no distress, appears stated age. Neck HEENT: Supple, no lymphadenopathy, no thyroid enlargement, no carotid bruits. Lungs: Clear to auscultation without crackles or wheezes no rhonchi, no defo rmity. Chest Wall: Chest wall normal expansion with deep inspiration no tenderness and no deformity was found on exam, no costochondral pain or discomfort. Heart: Regular rate and rhythm, S1, S2 normal, no murmur, rub or gallop. Back: Symmetric, no curvature, ROM normal, no CVA tenderness. Abdomen: Soft, non-tender, no rebound or rigidity, no hepatosplenomegaly. Extremities: large dressing in place with splint to the left lower extremity, 1+ edema to left lower extremity, no edema to right lower extremity, no cyanosis. Pulses: 2+ and symmetric. Skin: Skin color, texture, tugor normal, no rashes or lesions. Neurologic: Alert oriented x3 cranial nerves II through XII intact, no motor deficit, no abnormal balance or gait - Labs CBC & Chem 7: 08/03/18 07:46 08/03/18 07:46 Labs: Abnormal Lab Results - Last 24 Hours (Table) 08/03/18 08/03/18 Range/Units 07:46 07:46 Hgb 12.8 L (13.0-17.5) gm/dL ESR 53 H (0-15) mm/hr BUN 25 H (9-20) mg/dL Glucose 135 H (74-99) mg/dL Calcium 8.3 L (8.4-10.2) mg/dL C-Reactive Protein 164.1 H (<10.0) mg/L Microbiology - Last 24 Hours (Table) 08/01/18 12:10 Anaerobic Culture - Preliminary Ankle - Left 08/01/18 12:10 Anaerobic Culture - Preliminary Ankle - Left 08/01/18 12:10 Anaerobic Culture - Preliminary Ankle - Left 08/01/18 10:30 Blood Culture - Preliminary Blood No Growth after 48 hours 08/01/18 12:10 Gram Stain - Final Ankle - Left Tissue Culture - Final Strep agalactiae - (group b) 08/01/18 12:10 Gram Stain - Final Ankle - Left Wound Culture - Final Strep agalactiae - (group b) 08/01/18 12:10 Gram Stain - Final Ankle - Left Wound Culture - Final Strep agalactiae - (group b) Assessment and Plan Plan: 1. Septic arthritis of left ankle. Postsurgical intervention of hardware removal, incision and drainage and irrigation and debridement of left ankle. Dressing and drain in place. Continue vancomycin. Continue pain management of [place], Tylenol, Dilaudid as needed. 2. Urinary retention. Start Flomax 0.4 mg twice a day today and then once daily. Continue to bladder scan and straight cath as needed. Patient does straight cath at home. 3. Gout. Uric acid, sed rate, C-reactive protein ordered. 4. BPH. As noted above. 5. DVT prophylaxis. Lovenox 40 mg subcu daily. 6. GI prophylaxis. Protonix. Discharge plan: Possibly home with continued IV antibiotics. PICC line ordered for tomorrow. Dr. Polk will clarify IV antibiotics. Impression and plan of care have been directed as dictated by the signing physician. Jessica Avalos nurse practitioner acting as scribe for signing physician.
--- NOTE | 2018-08-04 00:28 | PN ---
PROGRESS NOTE DATE OF SERVICE: 08/03/2018. REASON FOR FOLLOWUP: Group B strep, left ankle septic arthritis. INTERVAL HISTORY: The patient is seen. The patient is afebrile, did spike a fever of 101.1 degrees Fahrenheit. The patient's drainage has been discontinued. Denies any worsening pain to the left ankle area. Denies any chest pain. No shortness of breath or cough. No abdominal pain or any diarrhea. PHYSICAL EXAMINATION: Blood pressure 132/71 with a pulse of 97, temperature 101.1. He is 92% on room air. GENERAL DESCRIPTION: An elderly male lying in bed in no distress. HEENT: No pallor or scleral icterus. LUNGS: Unlabored breathing. Clear to auscultation anteriorly. HEART: S1, S2. Regular rate and rhythm. ABDOMEN: Soft, no tenderness. Left ankle is currently dressed up. No obvious drainage on the dressing. LABS: White count normal. Blood culture has been negative so far. DIAGNOSTIC IMPRESSION AND PLAN: Patient with left knee septic arthritis with infected hardware, status post I and D and removal of the hardware. The patient now with new fever. Blood cultures repeated. We will also check an influenza swab. Repeat CBC in the morning. If persistent fever, further workup will be needed. Continue Cefazolin at this point. Continue supportive care. MMODL / IJN: [id number] /
[2018-08-04 02:58] VITALS: RESP 16
[2018-08-04] MEDS: TAMSULOSIN 0.4 MG CAP.ER.24H PO SCH (07:36)
[2018-08-04] MEDS: PANTOPRAZOLE 40 MG TABLET PO SCH (07:36)
[2018-08-04] MEDS: HYDROcodone/APAP 5-325MG 1 EACH TAB PO PRN (07:36)
[2018-08-04] MEDS: ceFAZolin IN SWFI 2 GM/20 ML SYRINGE IVP SCH (07:37)
[2018-08-04 08:06] VITALS: BP 135/69; PULSE 83; TEMP 99.3
[2018-08-04 08:22] LABS: Potassium 4.5 mmol/L (3.5-5.1)
[2018-08-04 08:28] LABS: Basophils % (A) 0 %; Eosinophils # (A) 0.3 k/uL (0-0.7); Eosinophils % (A) 3 %; HCT 39.8 % (39.0-53.0); HGB 13.1 gm/dL (13.0-17.5); Lymphocytes % (A) 11 %; MCH 29.2 pg (25.0-35.0); MCHC 32.8 g/dL (31.0-37.0); MCV 89.1 fL (80.0-100.0); Mean Platelet Volume 8.1; Monocytes # (A) 0.6 k/uL (0-1.0); Monocytes % (A) 6 %; Neutrophils # (A) 7.1 k/uL (1.3-7.7); Neutrophils % (A) 78 %; Platelet Count 255 k/uL (150-450); RBC 4.47 m/uL (4.30-5.90); WBC 9.1 k/uL (3.8-10.6)
[2018-08-04] MEDS ORDERED: LIDOCAINE 1% INJ 10MG/ML (20 ML MDV) SQ ONE (08:56)
--- NOTE | 2018-08-04 09:41 | CDI ---
Documentation Clarification Form Date: 08/04/2018 9:27:55 AM From: Nury MoranOdenLAVON, CCDS Admit Date: 08/01/2018 10:19:00 AM Patient Name: Odell Reza Visit Number: [id number] Discharge Date: ATTENTION: The Clinical Documentation Specialists (CDI) and [facility] Coding Staff appreciate your assistance in clarifying documentation. Please respond to the clarification below the line at the bottom and electronically sign. The CDI & [facility] Coding staff will review the response and follow-up if needed. Please note: Queries are made part of the Legal Health Record. If you have any questions, please contact the author of this message via ITS. Dr. Harjeet Jaime: Per the 08/01 Procedure Note: "Irrigation and debridement, left ankle. " "A small amount of the capsule was also sharply debrided and sent to pathology for cultures. Immediately after cultures were taken and antibiotics were given by anesthesia. Nonviable-appearing subcutaneous tissue, fat, and joint capsule were sharply debrided with a scalpel down to the level of the ankle joint." History/Risk Factors: Fracture of left ankle approximately 30 years ago. Gout, BPH with urinary retention. Clinical Indicators: Presented to ER with severe pain & swelling to left ankle, previously scheduled for a left total ankle replacement later this year. Diagnosed with left septic ankle arthritis. Pre-existing left post traumatic ankle arthritis. Procedure: Hardware removal deep, left ankle. I&D, Irrigation & debridement left ankle. Treatment: IV fl rate 75, IV Rocephin preop, IM DTP vaccine, IV Dilaudid, IV Vancomycin, IV Kefzol. Possible PICC line for home antibiotics (pending). Five elements required for accurate and compliant documentation of a debridement: 1. Technique used (e.g., excisional, excised, cutting, etc.) 2. Instrument(s) used (e.g., scalpel, curette, etc.) 3. Nature of the tissue removed (e.g., necrotic, devitalized tissues, non- viable tissue, etc.) 4. Appearance and size of the wound (e.g., down to fresh bleeding tissue, 7cm x 10cm, etc.) 5. Depth of the debridement* (e.g., skin, subcutaneous tissue, fascia, muscle, bone, etc.) In order to capture the severity of condition and code the appropriate procedure; could you please document the following: Excisional debridement (the removal of necrotic, devitalized tissue or slough by means of cutting away of tissue) Non-excisional debridement (the removal of necrotic, devitalized tissue or slough by means of flushing, brushing, or washing. (Irrigation) Other; please specify Unable to determine (Last Revision: August 2017) MTDD
[2018-08-04] MEDS: ENOXAPARIN 40 MG/0.4 ML SYRINGE SQ SCH (11:23)
--- NOTE | 2018-08-04 13:47 | PN ---
PROGRESS NOTE DATE OF SERVICE: 08/04/2018 REASON FOR FOLLOWUP: Left ankle septic arthritis, Group B strep. INTERVAL HISTORY: The patient is afebrile. No further fever has reported since yesterday evening. The patient denies having any chest pain or shortness of breath or cough. No nausea, vomiting or worsening pain to the left ankle area. PHYSICAL EXAMINATION: On examination, blood pressure 135/69 with a pulse of 83, temperature 99.3. He is 94% on room air. General description is an elderly male lying in bed in no distress. RESPIRATORY SYSTEM: Unlabored breathing, clear to auscultation anteriorly. HEART: S1, S2. Regular rate and rhythm. ABDOMEN: Soft, no tenderness. Left ankle is currently dressed up, no obvious drainage on the dressing. LABS: Hemoglobin 13.1, white count 9.1. BUN of 21, creatinine 0.98. DIAGNOSTIC IMPRESSION AND PLAN: Patient with left ankle septic arthritis, status post removal of the hardware. Cultures with group B strep. Patient sedimentation rate 53, CRP 164. Plan at this time is to continue Rocephin 2 grams daily for 6 weeks, weekly monitoring of CBC, BMP and sedimentation rate. Follow up in the office in one week. Prescription was written for the patient. Questions were answered. MMODL / IJN: [id number] /
--- NOTE | 2018-08-04 15:29 | P.DS ---
Providers Date of admission: 08/01/18 10:19 Attending physician: Harjeet Jaime Consults: 08/01/18 10:19 Consult Physician Routine Consulting Provider: Wade Dewitt Consult Reason/Comments: Septic ankle, medical management Do you want consulting provider notified?: Yes 08/01/18 11:54 Consult Physician Routine Consulting Provider: Chloé Polk Consult Reason/Comments: left ankle possible septic arthritis Do you want consulting provider notified?: Yes Primary care physician: [facility] Course: This patient is a 72-year-old male with a long-standing history of problems with his left ankle. The patient originally sustained an ankle fracture over 30 years ago, and an ORIF was performed. The patient went on to develop post-traumatic arthritis, which Dr. Jaime has been managing as an outpatient. Patient began to experience an increase in pain, swelling, and erythema in the left ankle and was seen in the office last Friday07/31/18, when his ankle was aspirated and the aspirate was sent to the lab. Initial lab results included extremely elevated calcium pyrophosphate crystals, gram-positive cocci on Gram stain, and elevated nucleated cell count of 77,000. He also had an elevated white blood count and CRP level. He was sent to the emergency department Friday morning and was directed to the operating room for a hardware removal and I and D of the left ankle with Dr. Jaime on 08/01/18. The procedure was performed without complication or sequelae. The patient was admitted following the procedure for an internal medicine and infectious disease consultation. The patient is doing fairly well postoperatively. Vital signs and labs are stable on postoperative day #3. Patient was examined bedside this morning. The patient states he was up with therapy yesterday, and it was mildly painful to bear weight on the left ankle while wearing the boot. Patient has been tolerating his diet well, he also had a bowel movement this morning. The patient states his pain is currently well- controlled. He denies chest pain, shortness of breath, nausea, vomiting, fevers, chills, or malaise. On examination, the patient is sitting in bed in no acute distress. Patient is alert and orientated x3. On inspection of the left lower extremity, there is an TIFFANIE wrap in place. Dressing is taken down, minimal seroanguinous drainage present on dressing. Intact sutures on the lateral ankle, drain site present on medial ankle. There is no surrounding erythema, warmth, or drainage from the incisions. Patient is able to wiggle his toes without issue. Left foot is warm and well-perfused with brisk capillary refill. Neurovascular is intact of the left lower extremity. Bilateral calves are soft and nontender. Patient is discharged home in good condition, pending medical and infectious disease clearance. Patient will follow up with Dr. Jaime in office in 1 week. Please see [facility] for accurate list of discharge medications. Pertinent Studies: Synovial fluid analysis on 07/31/18 showed a cell count of 77,000 and abundant calcium pyrophosphate crystals. The Gram stain showed gram-positive cocci. Cultures show group b step. Blood cultures show no growth after 72 hours. X-rays from the office on 07/31/18 showed a healed bimalleolar ankle fracture with 2 screws in the medial malleolus, a plate and screw in the lateral malleolus and severe arthritis in the ankle. Patient Condition at Discharge: Stable Plan - Discharge Summary Discharge Rx Participant: Yes New Discharge Prescriptions: New Tamsulosin [Flomax] 0.4 mg PO PC-BRKFST #30 cap.er.24h Aspirin 325 mg PO DAILY #14 tab Docusate [Colace] 100 mg PO BID #60 capsule Hydrocodone/Acetaminophen [[place] 5-325] 1 tab PO Q6HR PRN #40 tab PRN Reason: Pain Discontinued Turmeric Root Extract [Turmeric] 500 mg PO DAILY Discharge Medication List Tamsulosin [Flomax] 0.4 mg PO PC-BRKFST #30 cap.er.24h 08/03/18 [Rx] Aspirin 325 mg PO DAILY #14 tab 08/04/18 [Rx] Docusate [Colace] 100 mg PO BID #60 capsule 08/04/18 [Rx] Hydrocodone/Acetaminophen [[place] 5-325] 1 tab PO Q6HR PRN #40 tab 08/04/18 [Rx] Follow up Appointment(s)/Referral(s): [facility], [NON-STAFF] - [facility],Infusion [NON-STAFF] - Silvestre Quigley DO [Primary Care Provider] - 1 Week (office will call with appointment time) Chloé Polk MD [STAFF PHYSICIAN] - 08/11/18 2:30 pm Harjeet Jaime MD [Medical Doctor] - 08/14/18 9:30 am Mercedes King [NON-STAFF] - Ambulatory/Diagnostic Orders: Basic Metabolic Panel [LAB.AMB] Location: None Selected C Reactive Protein [LAB.AMB] Location: None Selected Complete Blood Count w/diff [LAB.AMB] Location: None Selected Erythrocyte Sedimentation Rate [LAB.AMB] Location: None Selected Patient Instructions/Handouts: How to Catheterize Yourself (Man) (GEN), Joint Incision and Drainage (DC), Peripherally Inserted Central Catheters and Midline Catheters (DC) Activity/Diet/Wound Care/Special Instructions: 1. [facility] will deliver IV antibiotics to the home on by 12:00 pm on 08/05/18. They will call patient before delivery. 2. [facility] will contact patient to schedule first visit. They will help patient learn how to administer home antibiotics starting 08/05/18. 3. Boot - delivered to bedside by Phillip - Weight bearing as tolerated on the operative leg while wearing the equalizer boot only. - Dressing may be changed daily. - Take pain medications as prescribed. Take aspirin for blood clot prevention. Take Colace as a stool softener. Use antibiotics as instructed by the infectious disease team. - Elevate and ice operative leg to help reduce swelling and control pain. - Follow-up appointment with Dr. Jaime in the office in 1 week. Call the office with any questions or concerns, Discharge Disposition: HOME WITH HOME HEALTH SERVICES
--- NOTE | 2018-08-06 10:17 | IR ---
PICC LINE PLACEMENT: HISTORY: Infection requiring long-term antibiotic therapy PROCEDURE: Ultrasound and fluoroscopic guidance of PICC line placement. COMPLICATIONS: None ANESTHESIA: 1. 1% Lidocaine locally. FINDINGS/TECHNIQUE: The procedure was explained to the patient. The risks, complications, benefits and alternatives were discussed and any questions were answered. Informed consent was obtained. The patient was placed supine on the fluoroscopic table and prepped and draped in the usual sterile fash ion. Utilizing a 21 gauge needle and sonographic and fluoroscopic guidance, access in the left basi lic vein was achieved and there is placement of a 0.018 guidewire. The vein is patent. A 4-F sheath was placed over the guidewire. The guidewire and dilator were removed and a 4-F. PICC line was plac ed through the sheath with the tip at the level of the SVC. The sheath was removed, the catheter was flushed and sutured into position. The patient was stable throughout the procedure and remained sta ble upon discharge from the Department of Radiology. The vein puncture was patent under ultrasound. A cohen scale image was obtained to document patency of the vein punctured. All elements of the maximal barrier technique were utilized. FLUOROSCOPY TIME: 0.3 minutes and one image submitted IMPRESSION: Successful PICC line placement under ultrasound and fluoroscopic guidance.
== END 2018-08-04 13:54 | disposition home health service (06) | DRG 494 ==
LOC: EC 09:58 → 4SSUR 10:19
PROVIDERS: ADMIT Orthopaedic Surgery; ATTEND Orthopaedic Surgery
PROC: 0SBG0ZZ Excision of Left Ankle Joint, Open Approach (ICD-10-PCS; principal; 2018-08-01 11:10)
PROC: 02HV33Z Insertion of Infusion Device into Superior Vena Cava, Percutaneous Approach (ICD-10-PCS; 2018-08-01 11:10)
DX: M00.9 Pyogenic arthritis, unspecified (principal); M11.272 Other chondrocalcinosis, left ankle and foot; M19.072 Primary osteoarthritis, left ankle and foot; M19.172 Post-traumatic osteoarthritis, left ankle and foot; R33.9 Retention of urine, unspecified; B95.1 Streptococcus, group B, as the cause of diseases classified elsewhere
CPT/HCPCS: 36415; 36573; 71046; 80048; 80053; 83605; 84550; 85025; 85027; 85610; 85652; 85730; 86140; 86850; 86900; 86901; 87040; 87070; 87075; 87205; 87502; 89050; 89060; 90715; 93005; 96360; 99285

== ENCOUNTER → 2018-09-15 | Outpatient (CLI) | payer MEDICARE ==
[2018-09-15 10:58] LABS: Basophils % (A) 1 %; Eosinophils # (A) 0.3 k/uL (0-0.7); Eosinophils % (A) 4 %; HGB 15.2 gm/dL (13.0-17.5); Lymphocytes # (A) 1.5 k/uL (1.0-4.8); Lymphocytes % (A) 20 %; MCH 28.8 pg (25.0-35.0); MCHC 31.6 g/dL (31.0-37.0); Mean Platelet Volume 6.7; Monocytes # (A) 0.4 k/uL (0-1.0); Monocytes % (A) 5 %; Neutrophils % (A) 69 %; Platelet Count 248 k/uL (150-450); RBC 5.28 m/uL (4.30-5.90); RDW 13.6 % (11.5-15.5); WBC 7.3 k/uL (3.8-10.6)
[2018-09-15 11:06] LABS: Anion Gap 7 mmol/L; Blood Urea Nitrogen 23 mg/dL (9-20); C Reactive Protein <5.0 mg/L (<10.0); Calcium 9.8 mg/dL (8.4-10.2); Carbon Dioxide 29 mmol/L (22-30); Chloride 106 mmol/L (98-107); Glucose 90 mg/dL (74-99); Potassium 4.8 mmol/L (3.5-5.1); Sodium 142 mmol/L (137-145)
[2018-09-15 13:16] LABS: Erythrocyte Sedimentation Rate 5 mm/hr (0-15)
== END | disposition home or self-care (01) ==
LOC: LABWHC1 10:08
PROVIDERS: ATTEND Internal Medicine Infectious Disease
DX: M00.9 Pyogenic arthritis, unspecified (principal)
CPT/HCPCS: 36415; 80048; 85025; 85652; 86140

== ENCOUNTER → 2018-09-28 | Outpatient (CLI) | payer MEDICARE ==
--- NOTE | 2018-09-28 15:06 | US ---
EXAMINATION TYPE: US venous doppler duplex LE LT DATE OF EXAM: 09/28/2018 2:57 PM COMPARISON: NONE CLINICAL HISTORY: M79.89 soft tissue disorders. Right ankle surgery 2 months ago, intermittent right lower leg and foot pain and swelling since surgery. SIDE PERFORMED: Left TECHNIQUE: The lower extremity deep venous system is examined utilizing real time linear array sonog mónica with graded compression, doppler sonography and color-flow sonography. VESSELS IMAGED: External Iliac Vein (EIV) Common Femoral Vein Deep Femoral Vein Greater Saphenous Vein * Femoral Vein Popliteal Vein Small Saphenous Vein * Proximal Calf Veins (* superficial vessels) Left Leg: Appears negative for DVT IMPRESSION: 1. No evidence of DVT as visualized.
== END | disposition home or self-care (01) ==
LOC: RADUSWWP 14:29
PROVIDERS: ATTEND Internal Medicine Infectious Disease
DX: M79.89 Other specified soft tissue disorders (principal)

== ENCOUNTER → 2019-07-13 | Outpatient (CLI) | payer MEDICARE ==
[2019-07-13 10:32] LABS: HCT 44.7 % (39.0-53.0); HGB 14.5 gm/dL (13.0-17.5); MCH 29.4 pg (25.0-35.0); MCHC 32.4 g/dL (31.0-37.0); Mean Platelet Volume 7.7; Platelet Count 258 k/uL (150-450); RBC 4.91 m/uL (4.30-5.90); RDW 13.1 % (11.5-15.5); WBC 5.4 k/uL (3.8-10.6)
[2019-07-13 11:28] LABS: Eosinophils # (M) 0.11 k/uL (0-0.7); Lymphocytes # (M) 1.94 k/uL (1.0-4.8); Monocytes # (M) 0.16 k/uL (0-1.0); Neutrophils # (M) 3.19 k/uL (1.3-7.7); Neutrophils % (M) 59 %; Nucleated Red Blood Cells 0 /100 WBC (0-0); Total Cells Counted 100
[2019-07-13 11:29] LABS: Large Platelets Present
[2019-07-13 13:34] LABS: Erythrocyte Sedimentation Rate 6 mm/hr (0-15)
== END | disposition home or self-care (01) ==
LOC: LABWHC1 09:13
PROVIDERS: ATTEND Orthopaedic Surgery
DX: M10.9 Gout, unspecified (principal); M19.172 Post-traumatic osteoarthritis, left ankle and foot; M25.572 Pain in left ankle and joints of left foot; Z48.89 Encounter for other specified surgical aftercare
CPT/HCPCS: 36415; 85025; 85652; 86140

== ENCOUNTER → 2020-01-11 | Outpatient (CLI) | payer MEDICARE | END | disposition home or self-care (01) | LOC: LABWHC1 12:04 | PROVIDERS: ATTEND Urology | DX: R97.20 Elevated prostate specific antigen [PSA] (principal) | CPT/HCPCS: 36415; 84153 ==

== ENCOUNTER → 2020-06-28 | Outpatient (CLI) | payer MEDICARE | END | disposition home or self-care (01) | LOC: RADMRIMAIN 08:13 | PROVIDERS: ATTEND Urology | DX: Z53.9 Procedure and treatment not carried out, unspecified reason (principal) ==

== ENCOUNTER → 2020-07-19 | Outpatient (CLI) | payer MEDICARE ==
--- NOTE | 2020-07-19 13:22 | MR ---
EXAMINATION TYPE: MR Prostate wo/w con DATE OF EXAM: 07/19/2020 COMPARISON: None. IMAGE QUALITY: . INDICATION: Elevated prostate specific antigen PSA: 12.1 ng/ml on January 11, 2020 Recent Biopsy and Date: April 06, 2019 Pathology Report (If Applicable): Prostatitis. No malignancy. TECHNIQUE: Examination was performed using a 3T MRI without an endorectal coil. Multiparametric imaging was perf ormed with T2 mutliplanar sequences, axial diffusion weighted imaging and dynamic contrast enhanced i maging, utilizing 11 mL intravenous Gadavist gadolinium contrast. FINDINGS: There is no clinically significant cancer identified. PROSTATE VOLUME: 8.1 cm SI x 5.4 cm AP x 6.0 cm LR Vol= 137.4 cc Predicted PSA equals 16.49. PSA DENSITY: 0.09 ng/ml/cc Markedly enlarged prostate gland with transitional zone hypertrophy is present. Peripheral zone is ma rkedly thinned without significant diminished signal on ADC mapping or increased signal on diffusion- weighted imaging. There is marked heterogeneity of the transitional zone without areas of circumscrib ed irregular hypointense tissue. Small 4 mm hemorrhagic or proteinaceous cyst in the left mid zone no debbie coronal image 15 for reference. Prostate capsule maintained. No adjacent adenopathy. Mild to moderate trabeculation and wall thickening in the bladder. There is narrow neck Left inferior diverticulum seen left pelvis best image 28 series 301 measuring roughly 7.4 x 1.3 cm. Cranial cauda l length at least 6 cm coronal image 9. Smaller right-sided diverticulum noted image 39 and probable posterior right aspect axial image 27 series 301 is difficult to show latter communication but is li shaun present on image 38 series 501. Visualized osseous structures are intact. No suspicious groin hernia or adenopathy seen. IMPRESSION: Markedly enlarged prostate gland consistent with BPH. There is outlet obstruction with bl adder wall mild to moderate distention and wall trabeculation and thickening. There are at least 3 bl adder diverticula with largest noted along the left aspect partially imaged on current study. A focus of clinically significant cancer is not identified. Highest Assessment Category: 1 MRI Stage: T0 N0 M0 based on review of pelvic images. False negative rates for MRI range from 5-20% depending on risk profile. Assessment Categories: 1 ? Very low (clinically significant cancer is highly unlikely to be present) 2 ? Low (clinically significant cancer is unlikely to be present) 3 ? Intermediate (the presence of clinically significant cancer is equivocal) 4 ? High (clinically significant cancer is likely to be present) 5 ? Very high (clinically significant cancer is highly likely to be present)
== END | disposition home or self-care (01) ==
LOC: RADMRIMAIN 08:05
PROVIDERS: ATTEND Urology
DX: N40.0 Benign prostatic hyperplasia without lower urinary tract symptoms (principal); N32.89 Other specified disorders of bladder; N32.3 Diverticulum of bladder; N32.0 Bladder-neck obstruction
CPT/HCPCS: 72197; A9585

== ENCOUNTER → 2024-09-16 | Outpatient (CLI) | payer MEDICARE ==
--- NOTE | 2024-09-16 16:52 | US ---
EXAMINATION TYPE: US kidneys/renal and bladder DATE OF EXAM: 09/16/2024 COMPARISON: MR prostate 07/19/2020 CLINICAL INDICATION: Male, 78 years old with history of R79.9 ABNORMAL FINDING OF BLOOD CHEMISTRY, UN SPECI; enlarged prostate. Pt states voiding problems TECHNIQUE: Grayscale imaging of the bilateral kidneys and urinary bladder: FINDINGS: EXAM MEASUREMENTS: Right Kidney: 11.9 x 4.8 x 4.8 cm Left Kidney: 9.8 x 6.7 x 3.4 cm Right Kidney: No hydronephrosis or masses seen Left Kidney: mild hydro seen Bladder: diverticulum seen on right side. Posterior wall appears thickened and irregular Bilateral Jets seen: right seen No shadowing calculi bilaterally. No right hydronephrosis. Mild left hydronephrosis. No renal masses identified. Diverticulum along the right urinary bladder. There is posterior wall thickening and irre gularity of the urinary bladder. Only the right ureteral jet is identified. Prominent prostate gland measuring 4.7 x 3.3 x 2.6 cm. IMPRESSION: 1. Mild left hydronephrosis. 2. Posterior urinary bladder wall thickening and irregularity which probably relates to medial lobe h ypertrophy of the prostate gland however underlying neoplasm is not excluded. Consider further evalua tion with CT urogram. 3. Urinary bladder diverticulum. [facility], , 09/16/2024 4:49 PM
[2024-09-17 01:48] LABS: Appearance,Urine Turbid (Clear); Bilirubin,Urine Negative (Negative); Blood,Urine Large (Negative); Color,Urine Yellow (Yellow); Ketones,Urine Trace (Negative); Nitrite,Urine Negative (Negative); PH, Urine 5.5; Specific Gravity,Urine 1.018 (1.001-1.030); Urobilinogen,Urine 0.2 E.U./DL
[2024-09-17 02:00] LABS: ALT 18 U/L (10-49); AST 21 U/L (14-35); Albumin 4.1 g/dL (3.8-4.9); Albumin/Globulin Ratio 1.58 Ratio (1.60-3.17); Alkaline Phosphatase 82 U/L (41-126); BUN/Creat Ratio 14.67 Ratio (12.00-20.00); Blood Urea Nitrogen 26.4 mg/dL (9.0-27.0); Calcium 9.3 mg/dL (8.7-10.3); Carbon Dioxide 23.7 mmol/L (21.6-31.8); Chloride 106 mmol/L (96-109); Globulin 2.6 g/dL (1.6-3.3); Glucose 81 mg/dL (70-110); Magnesium 2.2 mg/dL (1.5-2.4); Phosphorus 3.2 mg/dL (2.4-5.1); Potassium 4.5 mmol/L (3.5-5.5); Sodium 142 mmol/L (135-145); Total Bilirubin <0.2 mg/dL (0.3-1.2); Total Protein 6.7 g/dL (6.2-8.2)
[2024-09-17 02:36] LABS: Basophils # (A) 0.06 X 10*3/uL (0.00-0.10); Basophils % (A) 0.6 %; Eosinophils # (A) 0.34 X 10*3/uL (0.04-0.35); Eosinophils % (A) 3.7 %; HCT 44.5 % (39.6-50.0); HGB 13.6 g/dL (13.0-17.0); Lymphocytes % (A) 19.4 %; MCH 28.3 pg (27.0-32.0); MCHC 30.6 g/dL (32.0-37.0); MCV 92.5 FL (80.0-97.0); Mean Platelet Volume 9.9 FL (9.5-12.2); Monocytes # (A) 0.67 X 10*3/uL (0.20-1.00); Monocytes % (A) 7.2 %; NRBC Per 100 WBC 0 X 10*3/uL (0.00-0.01); Neutrophils # (A) 6.36 X 10*3/uL (1.80-7.70); Neutrophils % (A) 68.8 %; Platelet Count 315 X 10*3/uL (140-440); RBC 4.81 X 10*6/uL (4.40-5.60); RDW 13.1 % (11.5-14.5); WBC 9.26 X 10*3/uL (4.50-10.00)
[2024-09-17 03:34] LABS: Bacteria,Urine 3+ (None Seen)
== END | disposition home or self-care (01) ==
LOC: RADUSWWP 15:21
PROVIDERS: ATTEND Internal Medicine
DX: N13.30 Unspecified hydronephrosis (principal); N32.89 Other specified disorders of bladder; R79.9 Abnormal finding of blood chemistry, unspecified; N32.3 Diverticulum of bladder
CPT/HCPCS: 76770; 80053; 81001; 82043; 82570; 83735; 84100; 85025

== ENCOUNTER 2024-10-14 13:54 | Inpatient (IN) | payer MEDICARE ==
[2024-10-14] MEDS: SODIUM CHLORIDE 0.9% 1,000 ML IV ONE (14:56)
[2024-10-14 15:00] LABS: Basophils # (A) 0.02 10*3/uL (0.00-0.10); Basophils % (A) 0.2 %; Eosinophils # (A) 0.11 10*3/uL (0.04-0.35); HCT 35.2 % (39.6-50.0); HGB 11.9 g/dL (13.0-17.0); Lymphocytes # (A) 1.12 10*3/uL (0.90-5.00); Lymphocytes % (A) 9.7 %; MCH 28.3 pg (27.0-32.0); MCHC 33.8 g/dL (32.0-37.0); MCV 83.6 fL (80.0-97.0); Mean Platelet Volume 9.4 fL (9.5-12.2); Monocytes % (A) 7.8 %; Neutrophils # (A) 9.34 10*3/uL (1.80-7.70); Neutrophils % (A) 80.8 %; Platelet Count 424 10*3/uL (140-440); RBC 4.21 10*6/uL (4.40-5.60); RDW 12.5 % (11.5-14.5); WBC 11.55 10*3/uL (4.50-10.00)
--- NOTE | 2024-10-14 15:05 | ED ---
General Adult HPI - General Chief complaint: Urogenital Stated complaint: Urogenital Time Seen by Provider: 10/14/24 14:09 Source: patient, RN notes reviewed Mode of arrival: ambulatory Limitations: no limitations - History of Present Illness Initial comments: 78-year-old male presents emergency department complaint of urinary retention. Patient states that he feels like cannot urinate states he sometimes has urgency and goes and when she has leaking. Patient states he is did see a doffer recently and secondary to worsening kidney function states he saw his primary had an ultrasound was unsure of the results. Patient mentions that he sometimes has blood in his urine has been going on for a while. States his Abdominal swelling relieves this related to urinary retention. - Related Data Previous Rx's Medication Instructions Recorded Tamsulosin [Flomax] 0.4 mg PO PC-BRKFST #30 cap.er.24h 08/03/18 Aspirin 325 mg PO DAILY #14 tab 08/04/18 Docusate [Colace] 100 mg PO BID #60 capsule 08/04/18 Hydrocodone/Acetaminophen [[place] 1 tab PO Q6HR PRN #40 tab 08/04/18 5-325] Allergies Allergy/AdvReac Type Severity Reaction Status Date / Time No Known Allergies Allergy Verified 10/14/24 14:07 Review of Systems ROS Statement: Those systems with pertinent positive or pertinent negative responses have been documented in the HPI. ROS Other: All systems not noted in ROS Statement are negative. Past Medical History Past Medical History: No Reported History, Prostate Disorder Additional Past Medical History / Comment(s): Gout History of Any Multi-Drug Resistant Organisms: None Reported Past Surgical History: Orthopedic Surgery Past Anesthesia/Blood Transfusion Reactions: No Reported Reaction Past Psychological History: No Psychological Hx Reported Smoking Status: Never smoker Past Alcohol Use History: None Reported Past Drug Use History: None Reported General Exam Limitations: no limitations General appearance: alert, in no apparent distress Head exam: Present: atraumatic, normocephalic, normal inspection Eye exam: Present: normal appearance, PERRL, EOMI. Absent: scleral icterus, conjunctival injection, periorbital swelling ENT exam: Present: normal exam, mucous membranes moist Neck exam: Present: normal inspection. Absent: tenderness, meningismus, lymphadenopathy Respiratory exam: Present: normal lung sounds bilaterally. Absent: respiratory distress, wheezes, rales, rhonchi, stridor Cardiovascular Exam: Present: normal rhythm, tachycardia, normal heart sounds. Absent: systolic murmur, diastolic murmur, rubs, gallop, clicks GI/Abdominal exam: Present: soft, tenderness, normal bowel sounds. Absent: distended, guarding, rebound, rigid Course Vital Signs 10/14/24 10/14/24 10/14/24 14:04 14:56 16:01 Temperature 98.4 F 98.7 F 98.6 F Pulse Rate 126 H 120 H 118 H Respiratory 18 18 18 Rate Blood Pressure 113/72 118/73 130/78 O2 Sat by Pulse 95 97 100 Oximetry Medical Decision Making - Medical Decision Making Was pt. sent in by a medical professional or institution (, PA, MATERIALS RECYCLER, urgent care, hospital, or retirement...) When possible be specific @ -No Did you speak to anyone other than the patient for history (EMS, parent, family, police, friend...)? What history was obtained from this source @ -No Did you review nursing and triage notes (agree or disagree)? Why? @ -I reviewed and agree with nursing and triage notes Were old charts reviewed (outside hosp., previous admission, EMS record, old EKG, old radiological studies, urgent care reports/EKG's, retirement records)? Report findings @ -No old charts were reviewed Differential Diagnosis (chest pain, altered mental status, abdominal pain women, abdominal pain men, vaginal bleeding, weakness, fever, dyspnea, syncope, headache, dizziness, GI bleed, back pain, seizure, CVA, palpatations, mental health, musculoskeletal)? @ -Differential Abdominal Pain Men: Appendicitis, cholecystitis, diverticulosis, ischemic bowel, pancreatitis, hepatitis, UTI, gastroenteritis, AAA, incarcerated hernia, bowel obstruction, constipation, inflammatory bowel, hepatitis, peptic ulcer disease, splenic infarction, perforated viscus, testicular torsion, this is not meant to be an all-inclusive list EKG interpreted by me (3pts min.). @ - as above X-rays interpreted by me (1pt min.). @ -None done CT interpreted by me (1pt min.). @ -CT abdomen pelvis without contrast showing evidence of abnormal bladder, prostate with bilateral hydronephrosis hydroureter U/S interpreted by me (1pt. min.). @ -None done What testing was considered but not performed or refused? (CT, X-rays, U/S, labs)? Why? @ -None What meds were considered but not given or refused? Why? @ -None Did you discuss the management of the patient with other professionals (professionals i.e. , PA, MATERIALS RECYCLER, lab, RT, psych nurse, social service assistant, head shipper, teacher, chief creative officer, patient case coordinator)? Give summary @ -Discussed case with Dr. Wheeler for admission with consults. I did discuss case with Dr. Negron recommends Loya catheter which was already placed. Discussed case with nephrology regarding acute renal failure and hyperkalemia recommends hyperkalemia cocktail, bicarb drip 3 A@75 an hour Was smoking cessation discussed for >3mins.? @ -No Was critical care preformed (if so, how long)? @ -35 minutes Were there social determinants of health that impacted care today? How? (Homelessness, low income, unemployed, alcoholism, drug addiction, transportation, low edu. Level, literacy, decrease access to med. care, long-term, rehab)? @ -No Was there de-escalation of care discussed even if they declined (Discuss DNR or withdrawal of care, Hospice)? DNR status @ -No What co-morbidities impacted this encounter? (DM, HTN, Smoking, COPD, CAD, Cancer, CVA, ARF, Chemo, Hep., AIDS, mental health diagnosis, sleep apnea, morbid obesity)? @ -None Was patient admitted / discharged? Hospital course, mention meds given and route, prescriptions, significant lab abnormalities, going to OR and other pertinent info. @ -Admitted patient found to be in acute renal failure likely postrenal, structural process secondary to bladder mass prostate mass and concerns for cancer. Patient received hyperkalemia cocktail, bicarb drip, repeat laboratory studies, continue I's and O's, nephrology and urology evaluation Undiagnosed new problem with uncertain prognosis? @ -No Drug Therapy requiring intensive monitoring for toxicity (Heparin, Nitro, Insulin, Cardizem)? @ -No Were any procedures done? @ -No Diagnosis/symptom? @ -Bladder mass, hematuria, acute renal failure, hyperkalemia Acute, or Chronic, or Acute on Chronic? @ -Acute Uncomplicated (without systemic symptoms) or Complicated (systemic symptoms)? @ -Complicated Side effects of treatment? @ -No Exacerbation, Progression, or Severe Exacerbation? @ -No Poses a threat to life or bodily function? How? (Chest pain, USA, SD, pneumonia, PE, COPD, DKA, ARF, appy, cholecystitis, CVA, Diverticulitis, Homicidal, Suicidal, threat to staff... and all critical care pts) @ -Yes end organ failure - Lab Data Result diagrams: 10/14/24 14:53 10/14/24 14:53 Lab Results 10/14/24 10/14/24 10/14/24 Range/Units 14:45 14:53 14:53 WBC 11.55 H (4.50-10.00) 10*3/uL RBC 4.21 L (4.40-5.60) 10*6/uL Hgb 11.9 L (13.0-17.0) g/dL Hct 35.2 L (39.6-50.0) % MCV 83.6 (80.0-97.0) fL MCH 28.3 (27.0-32.0) pg MCHC 33.8 (32.0-37.0) g/dL Plt Count 424 (140-440) 10*3/uL MPV 9.4 L (9.5-12.2) fL Immature Gran % (Auto) 0.5 % Neutrophils % 80.8 % Lymphocytes % 9.7 % Monocytes % 7.8 % Eosinophils % 1.0 % Basophils % 0.2 % Immature Gran # 0.06 H (0.00-0.04) 10*3/uL Neutrophils # 9.34 H (1.80-7.70) 10*3/uL Lymphocytes # 1.12 (0.90-5.00) 10*3/uL Monocytes # 0.90 (0.20-1.00) 10*3/uL Eosinophils # 0.11 (0.04-0.35) 10*3/uL Basophils # 0.02 (0.00-0.10) 10*3/uL Sodium 130 L (137-145) mmol/L Potassium 7.3 H* (3.5-5.1) mmol/L Chloride 97 L (98-107) mmol/L Carbon Dioxide 14 L (22-30) mmol/L Anion Gap 19 mmol/L BUN 165 H* (9-20) mg/dL Creatinine 13.39 H* (0.66-1.25) mg/dL Est GFR (CKD-EPI)AfAm 4 (>60 ml/min/1.73 sqM) Est GFR (CKD-EPI)NonAf 3 (>60 ml/min/1.73 sqM) Glucose 148 H (74-99) mg/dL Calcium 8.9 (8.4-10.2) mg/dL Total Bilirubin 0.4 (0.2-1.3) mg/dL AST 19 (17-59) U/L ALT 22 (4-49) U/L Alkaline Phosphatase 67 (38-126) U/L Total Protein 5.7 L (6.3-8.2) g/dL Albumin 3.2 L (3.5-5.0) g/dL Urine Color Dark Red Urine Appearance Bloody (Clear) Urine RBC >182 H (0-5) /hpf Urine WBC >182 H (0-5) /hpf Urine WBC Clumps Many H (None) /hpf - EKG Data -: EKG Interpreted by Me EKG Comments: EKG performed at 15: 04 sinus tachycardia rate of 121 MD 190 QRS 112 QT/QTc 282/354 Critical Care Time Critical Care Time: Yes Total Critical Care Time: 35 Disposition Clinical Impression: Bladder mass, Bilateral hydronephrosis, Hydroureter, Acute renal failure, Hyperkalemia Disposition: ADMITTED IP TO THIS [facility] Condition: Serious Referrals: Janay Wheeler MD [Primary Care Provider] - 1-2 days Time of Disposition: 16:29
[2024-10-14 15:16] LABS: RBC,Urine >182 /hpf (0-5); WBC,Urine >182 /hpf (0-5)
[2024-10-14 15:19] LABS: Appearance,Urine Bloody (Clear); Color,Urine Dark Red
[2024-10-14 15:21] LABS: ALT 22 U/L (4-49); AST 19 U/L (17-59); African American GFR (CKD) 4 (>60 ml/min/1.73 sqM); Albumin 3.2 g/dL (3.5-5.0); Alkaline Phosphatase 67 U/L (38-126); Anion Gap 19 mmol/L; Calcium 8.9 mg/dL (8.4-10.2); Carbon Dioxide 14 mmol/L (22-30); Chloride 97 mmol/L (98-107); Glucose 148 mg/dL (74-99); Non-African American GFR(CKD) 3 (>60 ml/min/1.73 sqM); Sodium 130 mmol/L (137-145); Total Bilirubin 0.4 mg/dL (0.2-1.3); Total Protein 5.7 g/dL (6.3-8.2)
[2024-10-14 15:56] LABS: Potassium 7.3 mmol/L (3.5-5.1)
[2024-10-14 15:57] LABS: Blood Urea Nitrogen 165 mg/dL (9-20)
--- NOTE | 2024-10-14 15:57 | CT ---
EXAMINATION TYPE: CT abdomen pelvis wo con DATE OF EXAM: 10/14/2024 COMPARISON: None CLINICAL INDICATION: Male, 78 years old with history of Hematuria; PHH, HEMATURIA. TECHNIQUE: CT scan of the abdomen and pelvis is performed without oral or IV contrast. CT DLP: 867.[address] CTDI: mGy Automated exposure control for dose reduction was used. FINDINGS: Within the limitations of a non-contrast study, the following observations are made. The lungs are clear. Gallbladder is normal and there is no gallstone, wall thickening, pericholecystic fluid or distention . There is no biliary ductal dilatation. There is no organomegaly of the liver, pancreas, spleen or adrenal glands. There is moderate to marked left renal atrophy. There is moderate bilateral hydronephrosis and hydrou reter. There are no renal or ureteral calcifications. There is a Loya catheter within the urinary bl adder but there appears to be marked thickening of the urinary bladder wall and bilateral ill-defined mildly hypodense masses within the bilateral pelvis consistent with adenopathy or other neoplasm. Th e prostate gland is ill-defined. The caliber of the abdominal aorta is normal and there is no retroperitoneal adenopathy or hemorrhage . The bowel loops are normal in caliber is no evidence of obstruction. No inflammatory changes are iden tified in the mesentery and there is no free intraperitoneal air or fluid. The osseous structures and soft tissues are unremarkable. IMPRESSION: 1. Moderate to marked left renal atrophy. 2. No renal calcifications. 3. moderate hydronephrosis and hydroureter. 4. Ill-definition of the pelvic structures including the urinary bladder and prostate gland but there is a high suspicion for bilateral pelvic adenopathy or neoplasm either arising from the prostate gla nd or urinary bladder. Further evaluation with contrast is recommended. [facility], , 10/14/2024 3:55 PM
[2024-10-14] MEDS ORDERED: NALOXONE 0.4 MG/ML 1 ML VIAL IV PRN (16:26)
[2024-10-14] MEDS ORDERED: ACETAMINOPHEN TAB 325 MG TAB PO PRN (16:26)
[2024-10-14] MEDS ORDERED: ONDANSETRON 4 MG/2 ML VIAL IVP PRN (16:26)
[2024-10-14 16:27] LABS: Glucose,Whole Blood 136 mg/dL (70-110)
[2024-10-14] MEDS: INSULIN REGULAR 100 UNIT/ML VIAL (IV) IV ONE ×2 (16:39→21:26)
[2024-10-14] MEDS: CALCIUM GLUCONATE IN NACL 1 GM in SALINE 1 100ML.BAG IVPB ONE (16:42)
[2024-10-14] MEDS: SODIUM BICARB 8.4% 50 ML SYR (1 MEQ/ML) IV ONE (16:43)
[2024-10-14] MEDS: DEXTROSE 50% SYRINGE 50 ML IVP ONE (16:44)
[2024-10-14] MEDS: SODIUM ZIRCONIUM CYCLOSILICATE 10 GM PACKET PO ONE (16:45)
[2024-10-14] MEDS: SODIUM CHLORIDE 0.9% 1,000 ML IV SCH (16:49)
[2024-10-14 16:59] LABS: Potassium 7.3 mmol/L (3.5-5.1)
[2024-10-14 17:44] LABS: Glucose,Whole Blood 76 mg/dL (70-110)
[2024-10-14] MEDS: DEXTROSE 5% IN WATER 1,000 ML with SODIUM BICARB (1 MEQ/ML) 150 ML IV SCH (17:45)
[2024-10-14 18:24] LABS: Glucose,Whole Blood 66 mg/dL (70-110)
--- NOTE | 2024-10-14 18:27 | P.GSCN ---
History of Present Illness Consult date: 10/14/24 Reason for Consult: Urinary retention, possible bladder mass History of present illness: This is a 78-year-old male admitted to the hospital with acute kidney injury. He indicated for the past month he has been having significant difficulty v oiding with a weak stream, straining with urination associated with gross hematuria. Denies any dysuria or urinary incontinence. He indicated at baseline he does have significant obstructive urinary symptoms. He previously followed up with me in the office for BPH and incomplete bladder emptying, he has history of 30 g prostate. He was recommended to undergo a robotic simple prostatectomy which was arranged for him but he canceled the procedure multiple times, subsequently has not followed up with us since that time. He does have a history of chronically elevated PSA last PSA was checked in 2023 was at 14.5. In the ER he underwent a CT abdomen and pelvis that showed evidence of bilateral hydronephrosis, quite thickened bladder versus a bladder mass and significantly enlarged prostate. There was also evidence of pelvic lymphadenopathy. Currently has a Loya catheter in place draining hematuric urine. Review of Systems - Constitutional Denies fever, Denies weight loss - EENT Ears, nose, mouth and throat: Denies dysphagia - Cardiovascular Denies chest pain, Denies shortness of breath - Respiratory Denies cough, Denies 7 - Gastrointestinal Reports as per HPI - Genitourinary Reports hematuria, Reports urinary retention, Denies dysuria - Integumentary Denies rash, Denies unusual bruising Past Medical History Past Medical History: No Reported History, Prostate Disorder Additional Past Medical History / Comment(s): Gout History of Any Multi-Drug Resistant Organisms: None Reported Past Surgical History: Orthopedic Surgery Past Anesthesia/Blood Transfusion Reactions: No Reported Reaction Past Psychological History: No Psychological Hx Reported Smoking Status: Never smoker Past Alcohol Use History: None Reported Past Drug Use History: None Reported Medications and Allergies Home Medications Medication Instructions Recorded Confirmed Type Calcium Carbonate [Calcium] 600 mg PO DAILY 10/14/24 10/14/24 History Gabapentin 300 mg PO DAILY PRN 10/14/24 10/14/24 History Gabapentin [Neurontin] 300 mg PO HS 10/14/24 10/14/24 History Multivitamins, Thera [Multivitamin 1 tab PO DAILY 10/14/24 10/14/24 History (formulary)] oxyCODONE-APAP 7.5-325MG [Percocet 1 tab PO TID 10/14/24 10/14/24 History 7.5-325 mg] Allergies Allergy/AdvReac Type Severity Reaction Status Date / Time No Known Allergies Allergy Verified 10/14/24 16:56 Surgical - Exam Vital Signs Temp Pulse Resp BP Pulse Ox 98.4 F 126 H 18 113/72 95 10/14/24 14:04 10/14/24 14:04 10/14/24 14:04 10/14/24 14:04 10/14/24 14:04 - General no distress, no pain - Eyes normal ocular movement, no pale - ENT normal nares, normal mucosa - Respiratory normal expansion, normal respiratory effort - Abdomen Abdomen: soft, non tender, no distended - Psychiatric oriented to time, oriented to person, oriented to place Results - Labs 10/14/24 14:53 10/14/24 14:53 Abnormal Lab Results - Last 24 Hours (Table) 10/14/24 10/14/24 10/14/24 Range/Units 14:45 14:53 14:53 WBC 11.55 H (4.50-10.00) 10*3/uL RBC 4.21 L (4.40-5.60) 10*6/uL Hgb 11.9 L (13.0-17.0) g/dL Hct 35.2 L (39.6-50.0) % MPV 9.4 L (9.5-12.2) fL Immature Gran # 0.06 H (0.00-0.04) 10*3/uL Neutrophils # 9.34 H (1.80-7.70) 10*3/uL Sodium 130 L (137-145) mmol/L Potassium 7.3 H* (3.5-5.1) mmol/L Chloride 97 L (98-107) mmol/L Carbon Dioxide 14 L (22-30) mmol/L BUN 165 H* (9-20) mg/dL Creatinine 13.39 H* (0.66-1.25) mg/dL Glucose 148 H (74-99) mg/dL POC Glucose (mg/dL) (70-110) mg/dL Total Protein 5.7 L (6.3-8.2) g/dL Albumin 3.2 L (3.5-5.0) g/dL Urine RBC >182 H (0-5) /hpf Urine WBC >182 H (0-5) /hpf Urine WBC Clumps Many H (None) /hpf 10/14/24 10/14/24 Range/Units 14:53 16:25 WBC (4.50-10.00) 10*3/uL RBC (4.40-5.60) 10*6/uL Hgb (13.0-17.0) g/dL Hct (39.6-50.0) % MPV (9.5-12.2) fL Immature Gran # (0.00-0.04) 10*3/uL Neutrophils # (1.80-7.70) 10*3/uL Sodium 131 L (137-145) mmol/L Potassium 7.3 H* (3.5-5.1) mmol/L Chloride (98-107) mmol/L Carbon Dioxide 13 L (22-30) mmol/L BUN (9-20) mg/dL Creatinine (0.66-1.25) mg/dL Glucose (74-99) mg/dL POC Glucose (mg/dL) 136 H (70-110) mg/dL Total Protein (6.3-8.2) g/dL Albumin (3.5-5.0) g/dL Urine RBC (0-5) /hpf Urine WBC (0-5) /hpf Urine WBC Clumps (None) /hpf Diabetes panel 10/14/24 10/14/24 Range/Units 14:53 14:53 Sodium 130 L 131 L (137-145) mmol/L Potassium 7.3 H* 7.3 H* (3.5-5.1) mmol/L Chloride 97 L 99 (98-107) mmol/L Carbon Dioxide 14 L 13 L (22-30) mmol/L BUN 165 H* (9-20) mg/dL Creatinine 13.39 H* (0.66-1.25) mg/dL Glucose 148 H (74-99) mg/dL Calcium 8.9 (8.4-10.2) mg/dL AST 19 (17-59) U/L ALT 22 (4-49) U/L Alkaline Phosphatase 67 (38-126) U/L Total Protein 5.7 L (6.3-8.2) g/dL Albumin 3.2 L (3.5-5.0) g/dL Calcium panel 10/14/24 Range/Units 14:53 Calcium 8.9 (8.4-10.2) mg/dL Albumin 3.2 L (3.5-5.0) g/dL Pituitary panel 10/14/24 10/14/24 Range/Units 14:53 14:53 Sodium 130 L 131 L (137-145) mmol/L Potassium 7.3 H* 7.3 H* (3.5-5.1) mmol/L Chloride 97 L 99 (98-107) mmol/L Carbon Dioxide 14 L 13 L (22-30) mmol/L BUN 165 H* (9-20) mg/dL Creatinine 13.39 H* (0.66-1.25) mg/dL Glucose 148 H (74-99) mg/dL Calcium 8.9 (8.4-10.2) mg/dL Adrenal panel 10/14/24 10/14/24 Range/Units 14:53 14:53 Sodium 130 L 131 L (137-145) mmol/L Potassium 7.3 H* 7.3 H* (3.5-5.1) mmol/L Chloride 97 L 99 (98-107) mmol/L Carbon Dioxide 14 L 13 L (22-30) mmol/L BUN 165 H* (9-20) mg/dL Creatinine 13.39 H* (0.66-1.25) mg/dL Glucose 148 H (74-99) mg/dL Calcium 8.9 (8.4-10.2) mg/dL Total Bilirubin 0.4 (0.2-1.3) mg/dL AST 19 (17-59) U/L ALT 22 (4-49) U/L Alkaline Phosphatase 67 (38-126) U/L Total Protein 5.7 L (6.3-8.2) g/dL Albumin 3.2 L (3.5-5.0) g/dL Assessment and Plan Assessment: 78-year-old male admitted to the hospital with renal failure. History of BPH [address] abdomen pelvis showed markedly thickened bladder wall versus a bladder mass, with pelvic and lymphadenopathy and bilateral hydronephrosis, findings are concerning for malignancy. Of note his PSA was checked in 2023 was a 14.5 which is stable and based on his PSA size it is within the expected range. I discussed with him with the hematuria it is concerning for bladder malignancy but also could be coming from his prostate. At this time recommend keeping the Loya catheter in place. We will continue to trend his creatinine, if there is no improvement in creatinine then we will proceed with a cystoscopy with possible stent as an inpatient but otherwise if the acute kidney injury improves with the Loya catheter then we will arrange for outpatient cystoscopy
[2024-10-14 20:26] LABS: Glucose,Whole Blood 216 mg/dL (70-110)
[2024-10-14 21:09] LABS: Glucose,Whole Blood 222 mg/dL (70-110)
[2024-10-14] MEDS: DEXTROSE 50% SYRINGE 50 ML IVP STA (21:26)
[2024-10-14 22:41] LABS: Glucose,Whole Blood 132 mg/dL (70-110)
[2024-10-15] MEDS: FUROSEMIDE 10 MG/ML 2 ML VIAL IV ONE (02:30)
[2024-10-15] MEDS: ALBUTEROL NEB (CONC) 2.5 MG/0.5 ML INHALATION ONE (02:44)
[2024-10-15 02:48] LABS: ALT 19 U/L (4-49); AST 21 U/L (17-59); African American GFR (CKD) 4 (>60 ml/min/1.73 sqM); Albumin 2.9 g/dL (3.5-5.0); Alkaline Phosphatase 50 U/L (38-126); Anion Gap 14 mmol/L; Calcium 8.4 mg/dL (8.4-10.2); Carbon Dioxide 18 mmol/L (22-30); Chloride 100 mmol/L (98-107); Glucose 114 mg/dL (74-99); Non-African American GFR(CKD) 3 (>60 ml/min/1.73 sqM); Sodium 132 mmol/L (137-145); Total Bilirubin 0.5 mg/dL (0.2-1.3); Total Protein 5.4 g/dL (6.3-8.2)
[2024-10-15 03:14] LABS: Blood Urea Nitrogen 159 mg/dL (9-20)
[2024-10-15 03:21] LABS: Potassium 7.3 mmol/L (3.5-5.1)
[2024-10-15 03:50] LABS: Glucose,Whole Blood 127 mg/dL (70-110)
[2024-10-15] MEDS: DEXTROSE 50% SYRINGE 50 ML IVP STA (04:19)
[2024-10-15] MEDS: FUROSEMIDE 10 MG/ML 10 ML VIAL IV STA (04:20)
[2024-10-15] MEDS: INSULIN REGULAR 100 UNIT/ML VIAL (IV) IV ONE (04:21)
[2024-10-15 07:49] LABS: Glucose,Whole Blood 181 mg/dL (70-110)
[2024-10-15 10:16] LABS: ALT 18 U/L (4-49); AST 13 U/L (17-59); African American GFR (CKD) 4 (>60 ml/min/1.73 sqM); Albumin 2.9 g/dL (3.5-5.0); Alkaline Phosphatase 63 U/L (38-126); Anion Gap 15 mmol/L; Calcium 8.4 mg/dL (8.4-10.2); Carbon Dioxide 21 mmol/L (22-30); Chloride 98 mmol/L (98-107); Glucose 192 mg/dL (74-99); Non-African American GFR(CKD) 4 (>60 ml/min/1.73 sqM); Potassium 5.5 mmol/L (3.5-5.1); Sodium 134 mmol/L (137-145); Total Bilirubin 0.3 mg/dL (0.2-1.3); Total Protein 5.3 g/dL (6.3-8.2)
[2024-10-15 10:40] LABS: Blood Urea Nitrogen 145 mg/dL (9-20)
[2024-10-15] MEDS ORDERED: GABAPENTIN 300 MG CAP PO PRN (10:56)
--- NOTE | 2024-10-15 11:00 | P.HPIM ---
History of Present Illness H&P Date: 10/15/24 Odell Reza is a 78-year-old male patient who presented with concerns of urinary retention. Patient had a feeling like he could not urinate and was also recently seen by menswear salesperson secondary to worsening kidney function. Patient has a past medical history of gout and prostate disorder. Testing the emergency room revealed moderate to marked left renal atrophy no renal calcifications moderate hydronephrosis, ill definition of the pelvic structures including the urinary bladder and prostate gland but there is a high suspicion for bilateral pelvic adenopathy or and/or neoplasm from the prostate gland or urinary bladder. Lab work completed showing creatinine of 12.13 bun 159, potassium 7.3, hemoglobin 11.9 and white blood cell 11.55. Patient was given potassium reducing cocktail multiple times in ER. Loya catheter also placed with dark urine output. At this time nephrology and urology services have been consulted awaiting further recommendations. Repeat labs this a.m. potassium 5.5 creatinine 11.56 and bun 145. At this time patient denies chest pain or shortness of breath. Patient denies nausea vomiting or diarrhea. Current vital signs temp 98.1, heart 77, respiratory rate 18, blood pressure 122/74 with pulse ox of 96% on room air Review of Systems Please refer to HPI otherwise unremarkable Past Medical History Past Medical History: No Reported History, Prostate Disorder Additional Past Medical History / Comment(s): Gout History of Any Multi-Drug Resistant Organisms: None Reported Past Surgical History: Orthopedic Surgery Past Anesthesia/Blood Transfusion Reactions: No Reported Reaction Past Psychological History: No Psychological Hx Reported Smoking Status: Never smoker Past Alcohol Use History: None Reported Past Drug Use History: None Reported Medications and Allergies Home Medications Medication Instructions Recorded Confirmed Type Calcium Carbonate [Calcium] 600 mg PO DAILY 10/14/24 10/14/24 History Gabapentin 300 mg PO DAILY PRN 10/14/24 10/14/24 History Gabapentin [Neurontin] 300 mg PO HS 10/14/24 10/14/24 History Multivitamins, Thera [Multivitamin 1 tab PO DAILY 10/14/24 10/14/24 History (formulary)] oxyCODONE-APAP 7.5-325MG [Percocet 1 tab PO TID 10/14/24 10/14/24 History 7.5-325 mg] Allergies Allergy/AdvReac Type Severity Reaction Status Date / Time No Known Allergies Allergy Verified 10/14/24 16:56 Physical Exam Vitals: Vital Signs Temp Pulse Resp BP Pulse Ox 10/15/24 06:55 98.1 F 10/15/24 06:25 77 18 122/74 96 10/15/24 04:13 77 18 128/77 91 L 10/15/24 02:54 75 18 10/15/24 02:44 78 18 10/15/24 01:29 98.4 F 78 16 121/67 96 10/14/24 22:16 83 18 108/76 93 L 10/14/24 20:00 98.7 F 82 19 133/58 97 10/14/24 18:20 84 16 100/53 97 10/14/24 17:47 98.3 F 86 19 102/56 98 10/14/24 16:15 117 H 20 130/78 98 10/14/24 16:01 98.6 F 118 H 18 130/78 100 10/14/24 14:56 98.7 F 120 H 18 118/73 97 10/14/24 14:04 98.4 F 126 H 18 113/72 95 Intake and Output 10/14/24 10/15/24 10/15/24 22:59 06:59 14:59 Output Total 1800 Balance -1800 Output: Urine 1800 Other: Voiding Method Toilet Head normocephalic Neck supple Lungs clear to auscultation bilaterally no wheezing or crackles Heart regular rate and rhythm S1-S2, no rub or gallop Abdomen is soft nontender nondistended positive bowel sounds no hepatosplenomegaly Extremities no edema Neuro alert and orientated to 3 Results CBC & Chem 7: 10/14/24 14:53 10/15/24 08:53 Labs: Abnormal Lab Results - Last 24 Hours (Table) 10/14/24 10/14/24 10/14/24 Range/Units 14:45 14:53 14:53 WBC 11.55 H (4.50-10.00) 10*3/uL RBC 4.21 L (4.40-5.60) 10*6/uL Hgb 11.9 L (13.0-17.0) g/dL Hct 35.2 L (39.6-50.0) % MPV 9.4 L (9.5-12.2) fL Immature Gran # 0.06 H (0.00-0.04) 10*3/uL Neutrophils # 9.34 H (1.80-7.70) 10*3/uL Sodium 130 L (137-145) mmol/L Potassium 7.3 H* (3.5-5.1) mmol/L Chloride 97 L (98-107) mmol/L Carbon Dioxide 14 L (22-30) mmol/L BUN 165 H* (9-20) mg/dL Creatinine 13.39 H* (0.66-1.25) mg/dL Glucose 148 H (74-99) mg/dL POC Glucose (mg/dL) (70-110) mg/dL AST (17-59) U/L Total Protein 5.7 L (6.3-8.2) g/dL Albumin 3.2 L (3.5-5.0) g/dL Urine RBC >182 H (0-5) /hpf Urine WBC >182 H (0-5) /hpf Urine WBC Clumps Many H (None) /hpf 10/14/24 10/14/24 10/14/24 Range/Units 14:53 16:25 18:21 WBC (4.50-10.00) 10*3/uL RBC (4.40-5.60) 10*6/uL Hgb (13.0-17.0) g/dL Hct (39.6-50.0) % MPV (9.5-12.2) fL Immature Gran # (0.00-0.04) 10*3/uL Neutrophils # (1.80-7.70) 10*3/uL Sodium 131 L (137-145) mmol/L Potassium 7.3 H* (3.5-5.1) mmol/L Chloride (98-107) mmol/L Carbon Dioxide 13 L (22-30) mmol/L BUN (9-20) mg/dL Creatinine (0.66-1.25) mg/dL Glucose (74-99) mg/dL POC Glucose (mg/dL) 136 H 66 L (70-110) mg/dL AST (17-59) U/L Total Protein (6.3-8.2) g/dL Albumin (3.5-5.0) g/dL Urine RBC (0-5) /hpf Urine WBC (0-5) /hpf Urine WBC Clumps (None) /hpf 10/14/24 10/14/24 10/14/24 Range/Units 20:02 20:24 21:08 WBC (4.50-10.00) 10*3/uL RBC (4.40-5.60) 10*6/uL Hgb (13.0-17.0) g/dL Hct (39.6-50.0) % MPV (9.5-12.2) fL Immature Gran # (0.00-0.04) 10*3/uL Neutrophils # (1.80-7.70) 10*3/uL Sodium (137-145) mmol/L Potassium 6.5 H* (3.5-5.1) mmol/L Chloride (98-107) mmol/L Carbon Dioxide (22-30) mmol/L BUN (9-20) mg/dL Creatinine (0.66-1.25) mg/dL Glucose (74-99) mg/dL POC Glucose (mg/dL) 216 H 222 H (70-110) mg/dL AST (17-59) U/L Total Protein (6.3-8.2) g/dL Albumin (3.5-5.0) g/dL Urine RBC (0-5) /hpf Urine WBC (0-5) /hpf Urine WBC Clumps (None) /hpf 10/14/24 10/14/24 10/15/24 Range/Units 22:40 23:16 02:00 WBC (4.50-10.00) 10*3/uL RBC (4.40-5.60) 10*6/uL Hgb (13.0-17.0) g/dL Hct (39.6-50.0) % MPV (9.5-12.2) fL Immature Gran # (0.00-0.04) 10*3/uL Neutrophils # (1.80-7.70) 10*3/uL Sodium 132 L (137-145) mmol/L Potassium 7.0 H* 7.3 H* (3.5-5.1) mmol/L Chloride (98-107) mmol/L Carbon Dioxide 18 L (22-30) mmol/L BUN 159 H* (9-20) mg/dL Creatinine 12.13 H* (0.66-1.25) mg/dL Glucose 114 H (74-99) mg/dL POC Glucose (mg/dL) 132 H (70-110) mg/dL AST (17-59) U/L Total Protein 5.4 L (6.3-8.2) g/dL Albumin 2.9 L (3.5-5.0) g/dL Urine RBC (0-5) /hpf Urine WBC (0-5) /hpf Urine WBC Clumps (None) /hpf 10/15/24 10/15/24 10/15/24 Range/Units 03:48 07:48 08:53 WBC (4.50-10.00) 10*3/uL RBC (4.40-5.60) 10*6/uL Hgb (13.0-17.0) g/dL Hct (39.6-50.0) % MPV (9.5-12.2) fL Immature Gran # (0.00-0.04) 10*3/uL Neutrophils # (1.80-7.70) 10*3/uL Sodium 134 L (137-145) mmol/L Potassium 5.5 H (3.5-5.1) mmol/L Chloride (98-107) mmol/L Carbon Dioxide 21 L (22-30) mmol/L BUN 145 H* (9-20) mg/dL Creatinine 11.56 H* (0.66-1.25) mg/dL Glucose 192 H (74-99) mg/dL POC Glucose (mg/dL) 127 H 181 H (70-110) mg/dL AST 13 L (17-59) U/L Total Protein 5.3 L (6.3-8.2) g/dL Albumin 2.9 L (3.5-5.0) g/dL Urine RBC (0-5) /hpf Urine WBC (0-5) /hpf Urine WBC Clumps (None) /hpf Assessment and Plan Assessment: Urinary retention. Loya catheter placed Hyperkalemia secondary to SANJUANA Acute kidney injury Abnormal CT concerns of bladder malignancy. Urology services consulted History of BPH DVT prophylaxis Lovenox. GI prophylax Protonix Nephrology and urology services consulted Potassium lowering cocktail given in ER Repeat labs ordered Urine cultures ordered Time with Patient: Greater than 30 (Greater than 60% of the total time spent in counseling and coordination of care)
--- NOTE | 2024-10-15 12:43 | P.PN ---
Subjective Principal diagnosis: No acute overnight event, urine is still hematuric but mainly consistent of old blood. He did make 2.1 L of urine. No significant improvement in kidney function. Objective - Vital Signs Vital signs: Vital Signs Temp 98.1 F 10/15/24 06:55 Pulse 90 10/15/24 11:22 Resp 18 10/15/24 11:22 BP 124/64 10/15/24 11:22 Pulse Ox 95 10/15/24 11:22 FiO2 Intake & Output 10/14/24 10/15/24 10/15/24 18:59 06:59 18:59 Output Total 300 2100 Balance -300 -2100 Weight 97.522 kg Output: Urine 300 2100 Uretheral (Loya) 300 300 Other: Voiding Method Toilet - Constitutional General appearance: Present: no acute distress - Gastrointestinal General gastrointestinal: Present: distended, soft. Absent: tenderness - Labs CBC & Chem 7: 10/14/24 14:53 10/15/24 08:53 Labs: Abnormal Lab Results - Last 24 Hours (Table) 10/14/24 10/14/24 10/14/24 Range/Units 14:45 14:53 14:53 WBC 11.55 H (4.50-10.00) 10*3/uL RBC 4.21 L (4.40-5.60) 10*6/uL Hgb 11.9 L (13.0-17.0) g/dL Hct 35.2 L (39.6-50.0) % MPV 9.4 L (9.5-12.2) fL Immature Gran # 0.06 H (0.00-0.04) 10*3/uL Neutrophils # 9.34 H (1.80-7.70) 10*3/uL Sodium 130 L (137-145) mmol/L Potassium 7.3 H* (3.5-5.1) mmol/L Chloride 97 L (98-107) mmol/L Carbon Dioxide 14 L (22-30) mmol/L BUN 165 H* (9-20) mg/dL Creatinine 13.39 H* (0.66-1.25) mg/dL Glucose 148 H (74-99) mg/dL POC Glucose (mg/dL) (70-110) mg/dL AST (17-59) U/L Total Protein 5.7 L (6.3-8.2) g/dL Albumin 3.2 L (3.5-5.0) g/dL Urine RBC >182 H (0-5) /hpf Urine WBC >182 H (0-5) /hpf Urine WBC Clumps Many H (None) /hpf 10/14/24 10/14/24 10/14/24 Range/Units 14:53 16:25 18:21 WBC (4.50-10.00) 10*3/uL RBC (4.40-5.60) 10*6/uL Hgb (13.0-17.0) g/dL Hct (39.6-50.0) % MPV (9.5-12.2) fL Immature Gran # (0.00-0.04) 10*3/uL Neutrophils # (1.80-7.70) 10*3/uL Sodium 131 L (137-145) mmol/L Potassium 7.3 H* (3.5-5.1) mmol/L Chloride (98-107) mmol/L Carbon Dioxide 13 L (22-30) mmol/L BUN (9-20) mg/dL Creatinine (0.66-1.25) mg/dL Glucose (74-99) mg/dL POC Glucose (mg/dL) 136 H 66 L (70-110) mg/dL AST (17-59) U/L Total Protein (6.3-8.2) g/dL Albumin (3.5-5.0) g/dL Urine RBC (0-5) /hpf Urine WBC (0-5) /hpf Urine WBC Clumps (None) /hpf 10/14/24 10/14/24 10/14/24 Range/Units 20:02 20:24 21:08 WBC (4.50-10.00) 10*3/uL RBC (4.40-5.60) 10*6/uL Hgb (13.0-17.0) g/dL Hct (39.6-50.0) % MPV (9.5-12.2) fL Immature Gran # (0.00-0.04) 10*3/uL Neutrophils # (1.80-7.70) 10*3/uL Sodium (137-145) mmol/L Potassium 6.5 H* (3.5-5.1) mmol/L Chloride (98-107) mmol/L Carbon Dioxide (22-30) mmol/L BUN (9-20) mg/dL Creatinine (0.66-1.25) mg/dL Glucose (74-99) mg/dL POC Glucose (mg/dL) 216 H 222 H (70-110) mg/dL AST (17-59) U/L Total Protein (6.3-8.2) g/dL Albumin (3.5-5.0) g/dL Urine RBC (0-5) /hpf Urine WBC (0-5) /hpf Urine WBC Clumps (None) /hpf 10/14/24 10/14/24 10/15/24 Range/Units 22:40 23:16 02:00 WBC (4.50-10.00) 10*3/uL RBC (4.40-5.60) 10*6/uL Hgb (13.0-17.0) g/dL Hct (39.6-50.0) % MPV (9.5-12.2) fL Immature Gran # (0.00-0.04) 10*3/uL Neutrophils # (1.80-7.70) 10*3/uL Sodium 132 L (137-145) mmol/L Potassium 7.0 H* 7.3 H* (3.5-5.1) mmol/L Chloride (98-107) mmol/L Carbon Dioxide 18 L (22-30) mmol/L BUN 159 H* (9-20) mg/dL Creatinine 12.13 H* (0.66-1.25) mg/dL Glucose 114 H (74-99) mg/dL POC Glucose (mg/dL) 132 H (70-110) mg/dL AST (17-59) U/L Total Protein 5.4 L (6.3-8.2) g/dL Albumin 2.9 L (3.5-5.0) g/dL Urine RBC (0-5) /hpf Urine WBC (0-5) /hpf Urine WBC Clumps (None) /hpf 10/15/24 10/15/24 10/15/24 Range/Units 03:48 07:48 08:53 WBC (4.50-10.00) 10*3/uL RBC (4.40-5.60) 10*6/uL Hgb (13.0-17.0) g/dL Hct (39.6-50.0) % MPV (9.5-12.2) fL Immature Gran # (0.00-0.04) 10*3/uL Neutrophils # (1.80-7.70) 10*3/uL Sodium 134 L (137-145) mmol/L Potassium 5.5 H (3.5-5.1) mmol/L Chloride (98-107) mmol/L Carbon Dioxide 21 L (22-30) mmol/L BUN 145 H* (9-20) mg/dL Creatinine 11.56 H* (0.66-1.25) mg/dL Glucose 192 H (74-99) mg/dL POC Glucose (mg/dL) 127 H 181 H (70-110) mg/dL AST 13 L (17-59) U/L Total Protein 5.3 L (6.3-8.2) g/dL Albumin 2.9 L (3.5-5.0) g/dL Urine RBC (0-5) /hpf Urine WBC (0-5) /hpf Urine WBC Clumps (None) /hpf Assessment and Plan Assessment: 78-year-old male admitted to the hospital with renal failure. History of BPH [address] abdomen pelvis showed markedly thickened bladder wall versus a bladder mass, with pelvic and lymphadenopathy and bilateral hydronephrosis, findings are concerning for malignancy. Of note his PSA was checked in 2023 was a 14.5 which is stable and based on his PSA size it is within the expected range. I discussed with him with the hematuria it is concerning for bladder malignancy but also could be coming from his prostate. At this time recommend keeping the Loya catheter in place. We will continue to trend his creatinine, if there is no improvement in creatinine then we will proceed with a cystoscopy with possible stent as an inpatient but otherwise if the acute kidney injury improves with the Loya catheter then we will arrange for outpatient cystoscopy - Continue to trend creatinine
[2024-10-15 14:44] LABS: Appearance,Urine Turbid (Clear); Bacteria,Urine Moderate /hpf; Bilirubin,Urine Negative (Negative); Blood,Urine Large (Negative); Color,Urine Red; Glucose,Urine (UA) Negative (Negative); Ketones,Urine Negative (Negative); Leukocyte Esterase,Urine Large (Negative); Nitrite,Urine Negative (Negative); Protein,Urine 2+ (Negative); RBC,Urine >182 /hpf (0-5); Specific Gravity,Urine 1.018 (1.001-1.035); Urobilinogen,Urine <2.0 mg/dL (<2.0); WBC,Urine >182 /hpf (0-5)
--- NOTE | 2024-10-15 16:14 | P.NPCON ---
History of Present Illness - Reason for Consult acute renal failure - History of Present Illness Patient is a 78-year-old male with history of BPH who was admitted to the hospital with complaints of difficulty in urination. Patient denies any fever or chills. CT abdomen showed bilateral hydronephrosis and possible lymphadenopathy A Loya catheter was placed and patient has had bloody urine Serum potassium was elevated at 7.3 with serum creatinine at 12.3 and BUN of 159. Patient received IV medications for hyperkalemia. He has had good urine output with IV Lasix. Patient denies any nausea or vomiting. No change in mentation Patient has been evaluated by urology with plans for cystoscopy and ureteral stent placement if there is no improvement in renal function. Past Medical History Past Medical History: No Reported History, Prostate Disorder Additional Past Medical History / Comment(s): Gout History of Any Multi-Drug Resistant Organisms: None Reported Past Surgical History: Orthopedic Surgery Past Anesthesia/Blood Transfusion Reactions: No Reported Reaction Past Psychological History: No Psychological Hx Reported Smoking Status: Never smoker Past Alcohol Use History: None Reported Past Drug Use History: None Reported Medications and Allergies Home Medications Medication Instructions Recorded Confirmed Type Calcium Carbonate [Calcium] 600 mg PO DAILY 10/14/24 10/14/24 History Gabapentin 300 mg PO DAILY PRN 10/14/24 10/14/24 History Gabapentin [Neurontin] 300 mg PO HS 10/14/24 10/14/24 History Multivitamins, Thera [Multivitamin 1 tab PO DAILY 10/14/24 10/14/24 History (formulary)] oxyCODONE-APAP 7.5-325MG [Percocet 1 tab PO TID 10/14/24 10/14/24 History 7.5-325 mg] Allergies Allergy/AdvReac Type Severity Reaction Status Date / Time No Known Allergies Allergy Verified 10/14/24 16:56 Physical Exam Vitals: Vital Signs Temp Pulse Resp BP Pulse Ox 10/15/24 15:02 92 18 137/74 96 10/15/24 11:22 90 18 124/64 95 10/15/24 06:55 98.1 F 10/15/24 06:25 77 18 122/74 96 10/15/24 04:13 77 18 128/77 91 L 10/15/24 02:54 75 18 10/15/24 02:44 78 18 10/15/24 01:29 98.4 F 78 16 121/67 96 10/14/24 22:16 83 18 108/76 93 L 10/14/24 20:00 98.7 F 82 19 133/58 97 10/14/24 18:20 84 16 100/53 97 10/14/24 17:47 98.3 F 86 19 102/56 98 10/14/24 16:15 117 H 20 130/78 98 Intake and Output 10/15/24 10/15/24 10/15/24 06:59 14:59 22:59 Output Total 2100 600 Balance -2100 -600 Output: Urine 2100 600 Uretheral (Loya) 300 Patient is awake, comfortable, no acute distress Examination of the heart S1 and S2 Examination of the lungs bilateral breath sounds are heard Abdomen is soft nontender Examination of lower extremities shows no significant edema MANAGEMENT TECHNICIAN exam is 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 No tremors/asterixis noted Results - Lab Results Most recent lab results Calcium 8.4 mg/dL (8.4-10.2) 10/15/24 08:53 10/14/24 14:53 10/15/24 08:53 Assessment and Plan Assessment: 1. Acute kidney injury, obstructive uropathy with CT scan showing bilateral hydronephrosis with possible underlying lymphadenopathy. Thickening of the bladder wall was noted as well. Patient may need renal replacement therapy for intractable hyperkalemia. No significant uremic symptoms currently. Good urine output noted 2. Hyperkalemia associated with severe acute kidney injury. Patient is nonoliguric and expect improvement with medical management. He may need dialysis if the serum potassium does not improve 3. BPH 4. Bilateral hydronephrosis possible underlying lymphadenopathy with concern for possible malignancy, being followed by urology 5. Anion gap metabolic acidosis associated with severe acute kidney injury and obstructive uropathy 6. Hematuria secondary to possible underlying bladder malignancy versus bleeding from the prostate Plan: Continue with bicarb drip Await repeat labs. Patient will need dialysis if serum potassium remains elevated Avoid any nephrotoxic agents Patient will need cystoscopy/ureteral stents if there is no further improvement in renal function. Thank you for the consultation. We will continue to follow the patient with you during his hospitalization
[2024-10-15 17:36] LABS: African American GFR (CKD) 5 (>60 ml/min/1.73 sqM); Anion Gap 19 mmol/L; Calcium 8.7 mg/dL (8.4-10.2); Carbon Dioxide 18 mmol/L (22-30); Chloride 97 mmol/L (98-107); Glucose 114 mg/dL (74-99); Non-African American GFR(CKD) 4 (>60 ml/min/1.73 sqM); Sodium 134 mmol/L (137-145)
[2024-10-15 17:50] LABS: Blood Urea Nitrogen 156 mg/dL (9-20)
[2024-10-15 17:54] LABS: Potassium 6.2 mmol/L (3.5-5.1)
[2024-10-15] MEDS: LACTULOSE 20 GM/30 ML CUP PO ONE (19:09)
[2024-10-15] MEDS: SODIUM POLYSTYRENE SULFONATE 15 GM/60 ML BOTTLE PO ONE (19:09)
[2024-10-15] MEDS: oxyCODONE-APAP 7.5-325MG 1 EACH TAB PO SCH (19:48)
[2024-10-15] MEDS: GABAPENTIN 300 MG CAP PO SCH (20:31)
[2024-10-16] MEDS: PANTOPRAZOLE 40 MG TABLET PO SCH (06:43)
[2024-10-16] MEDS: ENOXAPARIN 30 MG/0.3 ML SYRINGE SQ SCH (08:08)
[2024-10-16 08:33] LABS: Basophils # (A) 0.06 10*3/uL (0.00-0.10); Basophils % (A) 0.4 %; Eosinophils # (A) 0.36 10*3/uL (0.04-0.35); Eosinophils % (A) 2.5 %; HCT 35.8 % (39.6-50.0); HGB 11.7 g/dL (13.0-17.0); Lymphocytes # (A) 1.36 10*3/uL (0.90-5.00); Lymphocytes % (A) 9.3 %; MCH 27.8 pg (27.0-32.0); MCHC 32.7 g/dL (32.0-37.0); Mean Platelet Volume 9.8 fL (9.5-12.2); Monocytes # (A) 0.82 10*3/uL (0.20-1.00); Monocytes % (A) 5.6 %; Neutrophils # (A) 12.01 10*3/uL (1.80-7.70); Neutrophils % (A) 81.7 %; Platelet Count 462 10*3/uL (140-440); RBC 4.21 10*6/uL (4.40-5.60); RDW 12.7 % (11.5-14.5); WBC 14.69 10*3/uL (4.50-10.00)
[2024-10-16 08:48] LABS: ALT 20 U/L (4-49); AST 15 U/L (17-59); African American GFR (CKD) 5 (>60 ml/min/1.73 sqM); Albumin 3.2 g/dL (3.5-5.0); Alkaline Phosphatase 65 U/L (38-126); Anion Gap 15 mmol/L; Calcium 8.5 mg/dL (8.4-10.2); Carbon Dioxide 25 mmol/L (22-30); Chloride 97 mmol/L (98-107); Glucose 152 mg/dL (74-99); Non-African American GFR(CKD) 4 (>60 ml/min/1.73 sqM); Potassium 5.5 mmol/L (3.5-5.1); Sodium 137 mmol/L (137-145); Total Bilirubin 0.4 mg/dL (0.2-1.3); Total Protein 5.7 g/dL (6.3-8.2)
[2024-10-16 08:59] LABS: Blood Urea Nitrogen 136 mg/dL (9-20)
[2024-10-16] MEDS ORDERED: ENOXAPARIN 40 MG/0.4 ML SYRINGE SQ SCH (09:00)
--- NOTE | 2024-10-16 10:52 | P.PN ---
Subjective Progress Note Date: 10/16/24 Odell Reza is a 78-year-old male patient who presented with concerns of urinary retention. Patient had a feeling like he could not urinate and was also recently seen by glass production machine operator secondary to worsening kidney function. Patient has a past medical history of gout and prostate disorder. Testing the emergency room revealed moderate to marked left renal atrophy no renal calcifications moderate hydronephrosis, ill definition of the pelvic structures including the urinary bladder and prostate gland but there is a high suspicion for bilateral pelvic adenopathy or and/or neoplasm from the prostate gland or urinary bladder. Lab work completed showing creatinine of 12.13 bun 159, potassium 7.3, he moglobin 11.9 and white blood cell 11.55. Patient was given potassium reducing cocktail multiple times in ER. Loya catheter also placed with dark urine output. At this time nephrology and urology services have been consulted awaiting further recommendations. Repeat labs this a.m. potassium 5.5 creatinine 11.56 and bun 145. At this time patient denies chest pain or shortness of breath. Patient denies nausea vomiting or diarrhea. Current vital signs temp 98.1, heart 77, respiratory rate 18, blood pressure 122/74 with pulse ox of 96% on room air On 10/16/2024 patient was seen and examined on the medical floor he is alert and oriented x 3 in no apparent distress, he is complaining of mild pelvic discomfort, otherwise he denies any complaint, there is no fever or chills no headache or dizziness no chest pain no shortness of breath no cough no nausea or vomiting no abdominal pain no diarrhea and no urinary symptoms. Loya catheter is in and is draining clear urine at this time, nocturia has resolved. Patient is afebrile his white blood count is up from 11-14.69 kidney function is improving slowly BUN 136 creatinine 10.12 and potassium 5.5 at this time we will continue to monitor. Urine culture is showing skin and genital darron. Blood culture negative so far. no antibiotic is given at this time. Objective - Vital Signs Vital signs: Vital Signs Temp 98.7 F 10/16/24 08:00 Pulse 98 10/16/24 08:01 Resp 18 10/16/24 08:00 BP 113/69 10/16/24 08:00 Pulse Ox 97 10/16/24 08:00 FiO2 Intake & Output 10/15/24 10/16/24 10/16/24 18:59 06:59 18:59 Intake Total 120 240 Output Total 2700 1200 725 Balance -2580 -1200 -485 Weight 97.522 kg 94.3 kg Intake: Oral 120 240 Output: Urine 2700 1200 725 Uretheral (Loya) 300 Other: Voiding Method Indwelling Catheter Indwelling Catheter Indwelling Catheter # Bowel Movements 1 1 - Exam In general patient is alert and oriented x 3 in no distress HEENT head normocephalic and atraumatic Neck is supple no JVD no goiter no lymphadenopathy no carotid bruit Chest examination is clear to auscultation no crackles no wheezing Cardiac exam reveals regular heart sounds S1 and S2 no gallops no murmurs Abdomen is soft nontender no organomegaly with normal bowel sounds Extremity exam reveals no edema no cyanosis or clubbing Neurological examination reveals no gross focal deficits - Labs CBC & Chem 7: 10/16/24 07:56 10/16/24 07:56 Labs: Abnormal Lab Results - Last 24 Hours (Table) 10/15/24 10/15/24 10/15/24 Range/Units 08:53 13:30 17:08 WBC (4.50-10.00) 10*3/uL RBC (4.40-5.60) 10*6/uL Hgb (13.0-17.0) g/dL Hct (39.6-50.0) % Plt Count (140-440) 10*3/uL Immature Gran # (0.00-0.04) 10*3/uL Neutrophils # (1.80-7.70) 10*3/uL Eosinophils # (0.04-0.35) 10*3/uL Sodium 134 L 134 L (137-145) mmol/L Potassium 5.5 H 6.2 H* (3.5-5.1) mmol/L Chloride 97 L (98-107) mmol/L Carbon Dioxide 21 L 18 L (22-30) mmol/L BUN 145 H* 156 H* (9-20) mg/dL Creatinine 11.56 H* 10.66 H* (0.66-1.25) mg/dL Glucose 192 H 114 H (74-99) mg/dL AST 13 L (17-59) U/L Total Protein 5.3 L (6.3-8.2) g/dL Albumin 2.9 L (3.5-5.0) g/dL Urine Protein 2+ H (Negative) Urine Blood Large H (Negative) Ur Leukocyte Esterase Large H (Negative) Urine RBC >182 H (0-5) /hpf Urine WBC >182 H (0-5) /hpf Urine WBC Clumps Many H (None) /hpf Urine Bacteria Moderate H (None) /hpf 10/16/24 10/16/24 Range/Units 07:56 07:56 WBC 14.69 H (4.50-10.00) 10*3/uL RBC 4.21 L (4.40-5.60) 10*6/uL Hgb 11.7 L (13.0-17.0) g/dL Hct 35.8 L (39.6-50.0) % Plt Count 462 H (140-440) 10*3/uL Immature Gran # 0.08 H (0.00-0.04) 10*3/uL Neutrophils # 12.01 H (1.80-7.70) 10*3/uL Eosinophils # 0.36 H (0.04-0.35) 10*3/uL Sodium (137-145) mmol/L Potassium 5.5 H (3.5-5.1) mmol/L Chloride 97 L (98-107) mmol/L Carbon Dioxide (22-30) mmol/L BUN 136 H* (9-20) mg/dL Creatinine 10.12 H* (0.66-1.25) mg/dL Glucose 152 H (74-99) mg/dL AST 15 L (17-59) U/L Total Protein 5.7 L (6.3-8.2) g/dL Albumin 3.2 L (3.5-5.0) g/dL Urine Protein (Negative) Urine Blood (Negative) Ur Leukocyte Esterase (Negative) Urine RBC (0-5) /hpf Urine WBC (0-5) /hpf Urine WBC Clumps (None) /hpf Urine Bacteria (None) /hpf Microbiology - Last 24 Hours (Table) 10/14/24 16:34 Blood Culture - Preliminary Blood 10/14/24 14:45 Urine Culture - Final Urine,Voided Assessment and Plan Plan: Urinary retention. Loya catheter placed Hyperkalemia secondary to SANJUANA Acute kidney injury Abnormal CT concerns of bladder malignancy. Urology services consulted History of BPH DVT prophylaxis Lovenox. GI prophylax Protonix Nephrology and urology services consulted Potassium lowering cocktail given in ER Repeat labs ordered Urine cultures ordered
--- NOTE | 2024-10-16 12:38 | P.PN ---
Subjective Patient is seen for follow-up for acute kidney injury, obstructive uropathy Serum creatinine has not improved much with Loya catheter placement. Creatinine decreased to 10.1 from 13.3 on admission. Hyperkalemia has improved with potassium now at about 5.5 mEq/L. Discussed possible need for renal replacement therapy if there is no improvement in renal function post urological intervention. There are plans for possible cystoscopy and ureteral stent placement No complaints of nausea or vomiting No tremors or asterixis noted. Objective - Vital Signs Vital signs: Vital Signs Temp 98.0 F 10/16/24 11:12 Pulse 86 10/16/24 11:12 Resp 18 10/16/24 11:12 BP 120/72 10/16/24 11:12 Pulse Ox 97 10/16/24 11:12 FiO2 Intake & Output 10/15/24 10/16/24 10/16/24 18:59 06:59 18:59 Intake Total 120 240 Output Total 2700 1200 1250 Balance -2580 -1200 -1010 Weight 97.522 kg 94.3 kg Intake: Oral 120 240 Output: Urine 2700 1200 1250 Uretheral (Loya) 300 Other: Voiding Method Indwelling Catheter Indwelling Catheter Indwelling Catheter # Bowel Movements 1 1 - Exam Patient is awake, comfortable, no acute distress Examination of the heart S1 and S2 Examination of the lungs bilateral breath sounds are heard Abdomen is soft nontender Examination of lower extremities shows no significant edema 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 No tremors/asterixis noted - Labs CBC & Chem 7: 10/16/24 07:56 10/16/24 07:56 Labs: Abnormal Lab Results - Last 24 Hours (Table) 10/15/24 10/15/24 10/16/24 Range/Units 13:30 17:08 07:56 WBC 14.69 H (4.50-10.00) 10*3/uL RBC 4.21 L (4.40-5.60) 10*6/uL Hgb 11.7 L (13.0-17.0) g/dL Hct 35.8 L (39.6-50.0) % Plt Count 462 H (140-440) 10*3/uL Immature Gran # 0.08 H (0.00-0.04) 10*3/uL Neutrophils # 12.01 H (1.80-7.70) 10*3/uL Eosinophils # 0.36 H (0.04-0.35) 10*3/uL Sodium 134 L (137-145) mmol/L Potassium 6.2 H* (3.5-5.1) mmol/L Chloride 97 L (98-107) mmol/L Carbon Dioxide 18 L (22-30) mmol/L BUN 156 H* (9-20) mg/dL Creatinine 10.66 H* (0.66-1.25) mg/dL Glucose 114 H (74-99) mg/dL AST (17-59) U/L Total Protein (6.3-8.2) g/dL Albumin (3.5-5.0) g/dL Urine Protein 2+ H (Negative) Urine Blood Large H (Negative) Ur Leukocyte Esterase Large H (Negative) Urine RBC >182 H (0-5) /hpf Urine WBC >182 H (0-5) /hpf Urine WBC Clumps Many H (None) /hpf Urine Bacteria Moderate H (None) /hpf // Range/Units 07:56 WBC (4.50-10.00) 10*3/uL RBC (4.40-5.60) 10*6/uL Hgb (13.0-17.0) g/dL Hct (39.6-50.0) % Plt Count (140-440) 10*3/uL Immature Gran # (0.00-0.04) 10*3/uL Neutrophils # (1.80-7.70) 10*3/uL Eosinophils # (0.04-0.35) 10*3/uL Sodium (137-145) mmol/L Potassium 5.5 H (3.5-5.1) mmol/L Chloride 97 L (98-107) mmol/L Carbon Dioxide (22-30) mmol/L BUN 136 H* (9-20) mg/dL Creatinine 10.12 H* (0.66-1.25) mg/dL Glucose 152 H (74-99) mg/dL AST 15 L (17-59) U/L Total Protein 5.7 L (6.3-8.2) g/dL Albumin 3.2 L (3.5-5.0) g/dL Urine Protein (Negative) Urine Blood (Negative) Ur Leukocyte Esterase (Negative) Urine RBC (0-5) /hpf Urine WBC (0-5) /hpf Urine WBC Clumps (None) /hpf Urine Bacteria (None) /hpf Microbiology - Last 24 Hours (Table) 10/14/24 16:34 Blood Culture - Preliminary Blood 10/14/24 14:45 Urine Culture - Final Urine,Voided Assessment and Plan Assessment: 1. Acute kidney injury, obstructive uropathy with CT scan showing bilateral hydronephrosis with possible underlying lymphadenopathy. Thickening of the bladder wall was noted as well. Patient may need renal replacement therapy. No significant uremic symptoms currently. Good urine output noted. No improvement in renal function with Loya catheter placement. Patient will need further s urgical intervention. 2. Hyperkalemia associated with severe acute kidney injury. Patient is nonol iguric and expect improvement with medical management. Nonoliguric 3. BPH 4. Bilateral hydronephrosis possible underlying lymphadenopathy with concern for possible malignancy, being followed by urology 5. Anion gap metabolic acidosis associated with severe acute kidney injury and obstructive uropathy 6. Hematuria secondary to possible underlying bladder malignancy versus bleeding from the prostate Plan: DC IV bicarb and switch to normal saline Avoid any nephrotoxic agents Patient will need cystoscopy/ureteral stents as there is no significant improvement in renal function with Loya catheter placement. No acute indication for hemodialysis today.
[2024-10-16] MEDS: SODIUM CHLORIDE 0.9% 1,000 ML IV SCH (13:13)
--- NOTE | 2024-10-16 15:37 | US ---
EXAMINATION TYPE: US kidneys/renal and bladder DATE OF EXAM: 10/16/2024 COMPARISON: NONE CLINICAL INDICATION: Male, 78 years old with history of Hematuria, hydronephrosis TECHNIQUE: Grayscale imaging of the bilateral kidneys and urinary bladder: FINDINGS: EXAM MEASUREMENTS: Right Kidney: 11.8 x 4.9 x 5.5 cm Left Kidney: 9.2 x 4.2 x 3.5 cm Right Kidney: Mild pelviectasis. Left Kidney: limited views of atrohpic kidney does show some mild hydronephrosis present Bladder: ramos in place. The urinary bladder is decompressed. No nephrolithiasis is seen. The urinary bladder is decompressed with Ramos in place. IMPRESSION: 1. Mild left hydronephrosis with right pelviectasis appreciated. No echogenic nephrolithiasis identif ied. 2. Ramos catheter seen in the urinary bladder which is decompressed. [facility], , 10/16/2024 3:34 PM
[2024-10-16] MEDS: PIPERACILLIN-TAZOBACTAM 3.375 GM in SODIUM CHLORIDE 0.9% 100 ML IVPB SCH (16:07)
--- NOTE | 2024-10-17 09:10 | P.PN ---
Subjective Progress Note Date: 10/17/24 Odell Reza is a 78-year-old male patient who presented with concerns of urinary retention. Patient had a feeling like he could not urinate and was also recently seen by rerecording mixer secondary to worsening kidney function. Patient has a past medical history of gout and prostate disorder. Testing the emergency room revealed moderate to marked left renal atrophy no renal calcifications moderate hydronephrosis, ill definition of the pelvic structures including the urinary bladder and prostate gland but there is a high suspicion for bilateral pelvic adenopathy or and/or neoplasm from the prostate gland or urinary bladder. Lab work completed showing creatinine of 12.13 bun 159, potassium 7.3, he moglobin 11.9 and white blood cell 11.55. Patient was given potassium reducing cocktail multiple times in ER. Loya catheter also placed with dark urine output. At this time nephrology and urology services have been consulted awaiting further recommendations. Repeat labs this a.m. potassium 5.5 creatinine 11.56 and bun 145. At this time patient denies chest pain or shortness of breath. Patient denies nausea vomiting or diarrhea. Current vital signs temp 98.1, heart 77, respiratory rate 18, blood pressure 122/74 with pulse ox of 96% on room air On 10/16/2024 patient was seen and examined on the medical floor he is alert and oriented x 3 in no apparent distress, he is complaining of mild pelvic discomfort, otherwise he denies any complaint, there is no fever or chills no headache or dizziness no chest pain no shortness of breath no cough no nausea or vomiting no abdominal pain no diarrhea and no urinary symptoms. Loya catheter is in and is draining clear urine at this time, nocturia has resolved. Patient is afebrile his white blood count is up from 11-14.69 kidney function is improving slowly BUN 136 creatinine 10.12 and potassium 5.5 at this time we will continue to monitor. Urine culture is showing skin and genital darron. Blood culture negative so far. no antibiotic is given at this time. On 10/17/2024 patient was seen and examined on the medical floor is alert and or iented x 3 in no apparent distress, there is no fever or chills no headache or dizziness no chest pain no shortness of breath no cough no nausea or vomiting no abdominal pain no diarrhea and no urinary symptoms. Last night patient had positive blood cultures. He was started on IV Zosyn, infectious disease consultation requested , we are awaiting decision from urology in regard to cystoscopy with stent placement , will continue to follow closely. Objective - Vital Signs Vital signs: Vital Signs Temp 98.0 F 10/16/24 23:21 Pulse 82 10/17/24 04:23 Resp 18 10/17/24 04:23 BP 130/62 10/17/24 04:23 Pulse Ox 97 10/17/24 04:23 FiO2 Intake & Output 10/16/24 10/17/24 10/17/24 18:59 06:59 18:59 Intake Total 480 Output Total 1775 900 Balance -1295 -900 Weight 95.2 kg Intake: Oral 480 Output: Urine 1775 900 Other: Voiding Method Indwelling Catheter Indwelling Catheter # Bowel Movements 1 - Exam In general patient is alert and oriented x 3 in no distress HEENT head normocephalic and atraumatic Neck is supple no JVD no goiter no lymphadenopathy no carotid bruit Chest examination is clear to auscultation no crackles no wheezing Cardiac exam reveals regular heart sounds S1 and S2 no gallops no murmurs Abdomen is soft nontender no organomegaly with normal bowel sounds Extremity exam reveals no edema no cyanosis or clubbing Neurological examination reveals no gross focal deficits - Labs CBC & Chem 7: 10/16/24 07:56 10/16/24 07:56 Labs: Abnormal Lab Results - Last 24 Hours (Table) 10/16/24 10/16/24 Range/Units 07:56 07:56 WBC 14.69 H (4.50-10.00) 10*3/uL RBC 4.21 L (4.40-5.60) 10*6/uL Hgb 11.7 L (13.0-17.0) g/dL Hct 35.8 L (39.6-50.0) % Plt Count 462 H (140-440) 10*3/uL Immature Gran # 0.08 H (0.00-0.04) 10*3/uL Neutrophils # 12.01 H (1.80-7.70) 10*3/uL Eosinophils # 0.36 H (0.04-0.35) 10*3/uL Potassium 5.5 H (3.5-5.1) mmol/L Chloride 97 L (98-107) mmol/L BUN 136 H* (9-20) mg/dL Creatinine 10.12 H* (0.66-1.25) mg/dL Glucose 152 H (74-99) mg/dL AST 15 L (17-59) U/L Total Protein 5.7 L (6.3-8.2) g/dL Albumin 3.2 L (3.5-5.0) g/dL Microbiology - Last 24 Hours (Table) 10/14/24 16:34 Blood Culture Gram Stain - Preliminary Blood Blood Culture - Preliminary Assessment and Plan Plan: Urinary retention. Loya catheter placed Hyperkalemia secondary to SANJUANA Acute kidney injury Abnormal CT concerns of bladder malignancy. Urology services consulted History of BPH DVT prophylaxis Lovenox. GI prophylax Protonix Nephrology and urology services consulted Potassium lowering cocktail given in ER Repeat labs ordered Urine cultures ordered
[2024-10-17] MEDS: DEXAMETHASONE SOD PHOSPHATE 4 MG/ML 1 ML VIAL IV ONE (10:55)
[2024-10-17] MEDS: ONDANSETRON 4 MG/2 ML VIAL IVP ONE (10:55)
[2024-10-17] MEDS: IV FLUID CONTINUATION 1,000 ML IV ONE ×2 (11:00→11:25)
[2024-10-17] MEDS ORDERED: MIDAZOLAM 2 MG/2 ML VIAL ONE (11:25)
[2024-10-17] MEDS ORDERED: PROPOFOL 10 MG/ML 20 ML VIAL IV ONE (11:25)
[2024-10-17] MEDS ORDERED: fentaNYL (PF) 50 MCG/ML 2 ML AMP ONE (11:25)
[2024-10-17] MEDS ORDERED: LIDOCAINE 1% INJ 10MG/ML (20 ML MDV) ONE (11:25)
[2024-10-17] MEDS: IOPAMIDOL-370 100ML BTL MISCELLANE ONE ×2 (11:52)
--- NOTE | 2024-10-17 12:39 | FL ---
Fluoroscopy INDICATION: Pain FINDINGS: Fluoroscopy time: 6.5 seconds. Total dose area product (DAP) in uGy*m?, mGy*cm? (or similar): 0.8014 Images obtained: 4. Images document the procedure. IMPRESSION: 1. Documentation of fluoroscopy. [facility], , 10/17/2024 12:37 PM
--- NOTE | 2024-10-17 12:57 | P.PN ---
Subjective Creatinine is persistently elevated at 10, still making urine. Still having some gross hematuria. Renal ultrasound showed persistent bilateral mild hydronephrosis Objective - Vital Signs Vital signs: Vital Signs Temp 98 F 10/17/24 12:31 Pulse 86 10/17/24 12:45 Resp 16 10/17/24 12:45 BP 128/77 10/17/24 12:45 Pulse Ox 96 10/17/24 12:45 FiO2 Intake & Output 10/16/24 10/17/24 10/17/24 18:59 06:59 18:59 Intake Total 480 150 Output Total 1775 900 170 Balance -1295 -900 -20 Weight 95.2 kg Intake: IV 150 Oral 480 0 Output: Urine 1775 900 150 Uretheral (Loya) 150 Estimated Blood Loss 20 Other: Voiding Method Indwelling Catheter Indwelling Catheter Indwelling Catheter # Bowel Movements 1 - Constitutional General appearance: Present: no acute distress - Gastrointestinal General gastrointestinal: Present: soft. Absent: distended, tenderness - Labs CBC & Chem 7: 10/16/24 07:56 10/16/24 07:56 Labs: Microbiology - Last 24 Hours (Table) 10/14/24 16:34 Blood Culture Gram Stain - Preliminary Blood Blood Culture - Preliminary Assessment and Plan Assessment: 78-year-old male admitted to the hospital with renal failure. History of BPH [address] abdomen pelvis showed markedly thickened bladder wall versus a bladder mass, with pelvic and lymphadenopathy and bilateral hydronephrosis, findings are concerning for malignancy. Of note his PSA was checked in 2023 was a 14.5 which is stable and based on his PSA size it is within the expected range. I discussed with him with the hematuria it is concerning for bladder malignancy but also could be coming from his prostate. No improvement in kidney function with Loya catheter. Discussed with him the next up would be to proceed with a cystoscopy and attempted stent insertion. I did discuss with him given the bladder wall thickness and the significant prostate enlargement I might not be able to visualize the ureteral orifice , and at that point if he is kidney function does not improve further that he may require transfer for nephrostomy tube placements. - OR for cystoscopy small bladder biopsy and a bilateral stent insertion
--- NOTE | 2024-10-17 13:02 | P.OP ---
Date of Procedure: 10/17/24 Preoperative Diagnosis: Bilateral hydronephrosis, gross hematuria Postoperative Diagnosis: Same Procedure(s) Performed: Cystoscopy, clot evacuation, bladder biopsy with fulguration, attempted stent insertion and cystogram Implants: none Anesthesia: JUJUA Surgeon: Cachorro Nj Estimated Blood Loss (ml): 20 Pathology: other (Bladder biopsies) Condition: stable Disposition: PACU Indications for Procedure: 78-year-old male admitted to the hospital with renal failure. History of BPH [address] abdomen pelvis showed markedly thickened bladder wall versus a bladder mass, with pelvic and lymphadenopathy and bilateral hydronephrosis, findings are concerning for malignancy. Of note his PSA was checked in 2023 was a 14.5 which is stable and based on his PSA size it is within the expected range. I discussed with him with the hematuria it is concerning for bladder malignancy but also could be coming from his prostate. No improvement in kidney function with Loya catheter. Discussed with him the next up would be to proceed with a cystoscopy and attempted stent insertion. I did discuss with him given the bladder wall thickness and the significant prostate enlargement I might not be able to visualize the ureteral orifice , and at that point if he is kidney function does not improve further that he may require transfer for nephrostomy tube placements. Operative Findings: Significant prostate enlargement, very difficult to advance the scope into the bladder given the significant median lobe, I was unable to visualize neither of the ureteral orifice ease, secondary to prostatic backbleeding and the size of the median lobe. No clear evidence of bladder malignancy is below visualization was limited secondary to backbleeding, there was an edematous area near the prostate bladder junction that was biopsies Description of Procedure: Patient brought to the operating room, general anesthesia was induced. He was prepped and draped in sterile fashion placed in dorsolithotomy position. Cystoscopy fitted with a 22 [place] sheath was inserted per urethra, at this point patient had a significant prostate enlargement with a significant median lobe, I had extreme difficulty advancing the scope into the bladder I was eventually able to advance the scope into the bladder at that point secondary to his median lobe mobilization of the scope was very limited to look at the trigone, in addition there was prostatic backbleeding which significantly limited by visualization, I could not clearly identify any papillary tumors, but of note near the region of the trigone/posterior bladder wall there was edematous tissue throughout, it was difficult to assess whether this is extension of the prostate versus a bladder mass. In addition visualization was very limited secondary to prostatic backbleeding. At this point few biopsies were taken of the area using the biopsy grasper, of note the biopsies were limited secondary to poor visualization, areas of biopsy were fulgurated using the Bugbee. Repeat cystoscopy showed no evidence of bleeding outside the prostatic backbleeding. Approximately 50 cc of clot was irrigated out. At this time the cystoscope was withdrawn and a 22 [place] Loya was placed with return of blood-tinged urine, the catheter was irrigated to clear. At this point decision was made to proceed with a cystogram to assess if there is reflux of the ureters. Bladder capacity was very limited I was only able to inject about 150 mL before urine started draining around the catheter, there was no evidence of reflux, of note the bladder was heavily trabeculated on cystogram. In addition it confirmed the finding of a diverticulum. At this point patient was awakened from anesthesia and taken to recovery in stable condition. If creatinine does not improve any further then I would recommend transferring to a facility with IR capability for nephrostomy tube placement
--- NOTE | 2024-10-17 13:11 | P.PN ---
Subjective Patient is seen for follow-up for acute kidney injury, obstructive uropathy Serum creatinine has not improved much with Loya catheter placement. Creatinine decreased to 10.1 from 13.3 on admission. Labs are pending from today. Patient is being taken to the OR. Discussed with urology. Patient may need nephrostomy tubes. Objective - Vital Signs Vital signs: Vital Signs Temp 98 F 10/17/24 12:31 Pulse 86 10/17/24 12:45 Resp 16 10/17/24 12:45 BP 128/77 10/17/24 12:45 Pulse Ox 96 10/17/24 12:45 FiO2 Intake & Output 10/16/24 10/17/24 10/17/24 18:59 06:59 18:59 Intake Total 480 150 Output Total 1775 900 170 Balance -1295 -900 -20 Weight 95.2 kg Intake: IV 150 Oral 480 0 Output: Urine 1775 900 150 Uretheral (Loya) 150 Estimated Blood Loss 20 Other: Voiding Method Indwelling Catheter Indwelling Catheter Indwelling Catheter # Bowel Movements 1 - Exam Patient is awake, comfortable, no acute distress Examination of lower extremities shows no significant edema 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 No tremors/asterixis noted - Labs CBC & Chem 7: 10/16/24 07:56 10/16/24 07:56 Labs: Microbiology - Last 24 Hours (Table) 10/14/24 16:34 Blood Culture Gram Stain - Preliminary Blood Blood Culture - Preliminary Assessment and Plan Assessment: 1. Acute kidney injury, obstructive uropathy with CT scan showing bilateral hy dronephrosis with possible underlying lymphadenopathy. Thickening of the bladder wall was noted as well. Patient may need renal replacement therapy. No significant uremic symptoms currently. Good urine output noted. No improvement in renal function with Loya catheter placement. Patient is being taken to the OR for cystoscopy and possible stent placement 2. Hyperkalemia associated with severe acute kidney injury. Patient is nonoliguric and expect improvement with medical management. Nonoliguric 3. BPH 4. Bilateral hydronephrosis possible underlying lymphadenopathy with concern for possible malignancy, being followed by urology 5. Anion gap metabolic acidosis associated with severe acute kidney injury and obstructive uropathy 6. Hematuria secondary to possible underlying bladder malignancy versus bleeding from the prostate Plan: Continue with normal saline Avoid any nephrotoxic agents Follow-up on labs from today
[2024-10-17] MEDS: LACTATED RINGERS 1,000 ML IV SCH (13:13)
[2024-10-17] MEDS: PIPERACILLIN-TAZOBACTAM 3.375 GM in SODIUM CHLORIDE 0.9% 100 ML IVPB SCH (13:21)
[2024-10-17] MEDS: LACTULOSE 20 GM/30 ML CUP PO ONE (18:54)
--- NOTE | 2024-10-17 22:36 | P.CONS ---
History of Present Illness - Reason for Consult Consult date: 10/17/24 Bacteremia Requesting physician: Janay Wheeler - Chief Complaint Difficult urination urgency and incontinence x days - History of Present Illness Patient is a 78-year-old male past medical history significant for gout prostate disorder presenting to the hospital 3 days ago for evaluation of urinary retention as well as been complaining of urgency incontinence and blood in the urine patient on presentation to the hospital was afebrile and no fever have been called subsequently patient was tachycardic at 1 point but no significant tachycardia not hypotensive or hypoxic patient did have a white count of 11.55 which is up to 14.69 today BUN/creatinine has been elevated potassium was 7.0 on admission which is down to 5.5 today liver enzymes are normal urine has been positive patient blood cultures came back positive with gram-negative bacilli and gram-positive cocci in cluster for the patient was started on Zosyn infectious disease was consulted for further management of antibiotic therapy patient did have a CT abdominal pelvis which shows moderate to marked left renal atrophy moderate hydronephrosis and hydroureter ill- definition of pelvic surgery including the urinary bladder subsequently he did have abdominal bladder ultrasound mild left hydronephrosis mild right pelviectasis for which the patient has also been evaluated by urology patient was taken to the OR status post cystoscopy clot evacuation bladder biopsy and cystogram Review of Systems Positive point and negatives has been mentioned in the HPI, complete review of systems was performed and all other systems are negative Past Medical History Past Medical History: Prostate Disorder Additional Past Medical History / Comment(s): Gout History of Any Multi-Drug Resistant Organisms: None Reported Past Surgical History: Orthopedic Surgery Additional Past Surgical History / Comment(s): left ankle replacement Past Anesthesia/Blood Transfusion Reactions: No Reported Reaction Past Psychological History: No Psychological Hx Reported Smoking Status: Never smoker Past Alcohol Use History: None Reported Past Drug Use History: None Reported Medications and Allergies Home Medications Medication Instructions Recorded Confirmed Type Calcium Carbonate [Calcium] 600 mg PO DAILY 10/14/24 10/14/24 History Gabapentin 300 mg PO DAILY PRN 10/14/24 10/14/24 History Gabapentin [Neurontin] 300 mg PO HS 10/14/24 10/14/24 History Multivitamins, Thera [Multivitamin 1 tab PO DAILY 10/14/24 10/14/24 History (formulary)] oxyCODONE-APAP 7.5-325MG [Percocet 1 tab PO TID 10/14/24 10/14/24 History 7.5-325 mg] Allergies Allergy/AdvReac Type Severity Reaction Status Date / Time No Known Allergies Allergy Verified 10/14/24 16:56 Physical Exam Vitals: Vital Signs Temp Pulse Resp BP Pulse Ox 10/17/24 13:06 82 18 129/77 94 L 10/17/24 13:05 82 10/17/24 13:00 81 16 126/69 94 L 10/17/24 12:45 86 16 128/77 96 10/17/24 12:31 98 F 86 16 133/81 96 10/17/24 08:16 97 10/17/24 08:15 98.0 F 97 18 107/95 97 10/17/24 04:23 82 18 130/62 97 10/16/24 23:21 98.0 F 88 18 126/67 96 10/16/24 20:09 99.0 F 88 18 134/61 98 10/16/24 16:04 98.0 F 82 18 130/75 99 Intake and Output 10/16/24 10/17/24 10/17/24 22:59 06:59 14:59 Intake Total 250 Output Total 525 900 170 Balance -525 -900 80 Intake: IV 250 Oral 0 Output: Urine 525 900 150 Uretheral (Loya) 150 Estimated Blood Loss 20 Other: Voiding Method Indwelling Catheter Indwelling Catheter Indwelling Catheter # Bowel Movements 1 Weight 95.2 kg GENERAL DESCRIPTION: Elderly male lying in bed, no distress. No tachypnea or acc essory muscle of respiration use. HEENT: Shows Pallor , no scleral icterus. Oral mucous membrane is dry. NECK: Trachea central, no thyromegaly. LUNGS: Unlabored breathing. Clear to auscultation anteriorly. No wheeze or crackle. HEART: S1, S2, regular rate and rhythm. No loud murmur ABDOMEN: Soft, no tenderness , EXTREMITIES: No edema of feet. SKIN: No rash, no masses palpable. NEUROLOGICAL: The patient is awake, alert, oriented x3, mood and affect normal. Results CBC & Chem 7: 10/16/24 07:56 10/16/24 07:56 Labs: Microbiology - Last 24 Hours (Table) 10/14/24 16:34 Blood Culture Gram Stain - Preliminary Blood Blood Culture - Preliminary Assessment and Plan (1) Bacteremia Current Visit: Yes Status: Acute Code(s): R78.81 - BACTEREMIA SNOMED Code(s): 2267931 (2) Leukocytosis Current Visit: Yes Status: Acute Code(s): D72.829 - ELEVATED WHITE BLOOD CELL COUNT, UNSPECIFIED SNOMED Code(s): 431463480 Plan: 1patient with positive blood culture gram-negative bacilli source could likely be the urinary as the patient did presented with significant urinary symptoms of difficult urination dribbling and did have hematuria with significant abnormality was seen on the CT as well as the ultrasound, patient also have some gram-positive cocci in clusters in the blood source questionable urinary versus skin contamination 2-leukocytosis more likely related to his urinary issues including infection 3-blood culture have been repeated document clearance 4-patient has been started on Zosyn to continue while waiting for sensitivity to finalize We will follow on clinical condition and cultures to further adjust medication if needed Thank you for this consultation we will follow the patient along with you Dictation was produced using [employer] dictation software. please excuse any grammatical, word or spelling errors. Time with Patient: Greater than 30
[2024-10-18] MEDS ORDERED: HYDROmorphone 0.5 MG/0.5 ML SYRINGE IVP PRN (07:00)
[2024-10-18 07:30] LABS: Basophils # (A) 0.03 10*3/uL (0.00-0.10); Basophils % (A) 0.1 %; HCT 31.9 % (39.6-50.0); HGB 10.4 g/dL (13.0-17.0); Lymphocytes % (A) 3.9 %; MCH 28.5 pg (27.0-32.0); MCHC 32.6 g/dL (32.0-37.0); MCV 87.4 fL (80.0-97.0); Mean Platelet Volume 9.5 fL (9.5-12.2); Monocytes # (A) 0.66 10*3/uL (0.20-1.00); Monocytes % (A) 3.3 %; Neutrophils # (A) 18.65 10*3/uL (1.80-7.70); Platelet Count 409 10*3/uL (140-440); RBC 3.65 10*6/uL (4.40-5.60); RDW 12.7 % (11.5-14.5); WBC 20.28 10*3/uL (4.50-10.00)
[2024-10-18 07:49] LABS: ALT 17 U/L (4-49); AST 14 U/L (17-59); African American GFR (CKD) 5 (>60 ml/min/1.73 sqM); Albumin 2.8 g/dL (3.5-5.0); Alkaline Phosphatase 55 U/L (38-126); Anion Gap 12 mmol/L; Calcium 8.4 mg/dL (8.4-10.2); Carbon Dioxide 23 mmol/L (22-30); Chloride 103 mmol/L (98-107); Glucose 156 mg/dL (74-99); Non-African American GFR(CKD) 4 (>60 ml/min/1.73 sqM); Potassium 5.8 mmol/L (3.5-5.1); Sodium 138 mmol/L (137-145); Total Bilirubin 0.3 mg/dL (0.2-1.3); Total Protein 5.2 g/dL (6.3-8.2)
[2024-10-18 08:04] LABS: Blood Urea Nitrogen 128 mg/dL (9-20)
--- NOTE | 2024-10-18 08:25 | P.PN ---
Subjective Progress Note Date: 10/18/24 78 yo male with chronic renal failure. Has bilateral hydro probably due to an enlarged prostate [130ml] Dr Nj did cysto with failed retrograde pyelograms yesterday. His recommendations would be bilateral nephrostomy tubes if the renal failure persists. He would have to be transferred to a [facility] center with IR if this becomes necessary. He will eventually need prostate surgery Objective - Vital Signs Vital signs: Vital Signs Temp 98.0 F 10/18/24 04:00 Pulse 85 10/18/24 04:00 Resp 18 10/18/24 04:00 BP 126/80 10/18/24 04:00 Pulse Ox 95 10/18/24 04:00 FiO2 Intake & Output 10/17/24 10/17/24 10/18/24 06:59 18:59 06:59 Intake Total 250 0 Output Total 900 720 Balance -900 -470 0 Weight 95.2 kg Intake: IV 250 Oral 0 0 Output: Urine 900 700 Uretheral (Loya) 150 Estimated Blood Loss 20 Other: Voiding Method Indwelling Catheter Indwelling Catheter Indwelling Catheter - Labs CBC & Chem 7: 10/18/24 07:10 10/18/24 07:10 Labs: Microbiology - Last 24 Hours (Table) 10/14/24 16:34 Blood Culture Gram Stain - Preliminary Blood Blood Culture - Preliminary Assessment and Plan Assessment: Impression: crf with bilateral hydro secondary to large prostate and chronic outlet obstruction. BPH with obstruction Plan: the patient may need nephrostomy tubes. This would have to be done at another institution as we dont have IR. He will eventually need prostate surgery, probably a supra pubic prostatectomy
[2024-10-18] MEDS: SODIUM ZIRCONIUM CYCLOSILICATE 10 GM PACKET PO SCH (10:55)
--- NOTE | 2024-10-18 15:28 | P.PN ---
Subjective Patient is seen for follow-up for acute kidney injury, obstructive uropathy Serum creatinine has not improved much with Loya catheter placement. Creatinine decreased to 10.1 from 13.3 on admission. Patient was taken to the OR yesterday and stents could not be placed. He continues with Loya catheter. Serum creatinine remains elevated at 10. Discussed nephrostomy tubes and patient will need further prostatic surgery down the road. Objective - Vital Signs Vital signs: Vital Signs Temp 98 F 10/18/24 11:38 Pulse 83 10/18/24 11:38 Resp 16 10/18/24 11:38 BP 129/68 10/18/24 11:38 Pulse Ox 97 10/18/24 11:38 FiO2 Intake & Output 10/17/24 10/18/24 10/18/24 18:59 06:59 18:59 Intake Total 250 0 720 Output Total 720 300 Balance -470 0 420 Weight 97.7 kg Intake: IV 250 Oral 0 0 720 Output: Urine 700 300 Uretheral (Loya) 150 Estimated Blood Loss 20 Other: Voiding Method Indwelling Catheter Indwelling Catheter Indwelling Catheter - Exam Patient is awake, comfortable, no acute distress Examination of the heart S1 and S2 Examination of the lungs bilateral breath sounds are heard Abdomen is soft nontender Examination of lower extremities shows no significant edema BILLING CLERK exam is 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 No tremors/asterixis noted - Labs CBC & Chem 7: 10/18/24 07:10 10/18/24 07:10 Labs: Abnormal Lab Results - Last 24 Hours (Table) 10/18/24 10/18/24 Range/Units 07:10 07:10 WBC 20.28 H (4.50-10.00) 10*3/uL RBC 3.65 L (4.40-5.60) 10*6/uL Hgb 10.4 L (13.0-17.0) g/dL Hct 31.9 L (39.6-50.0) % Immature Gran # 0.14 H (0.00-0.04) 10*3/uL Neutrophils # 18.65 H (1.80-7.70) 10*3/uL Lymphocytes # 0.80 L (0.90-5.00) 10*3/uL Eosinophils # 0.00 L (0.04-0.35) 10*3/uL Potassium 5.8 H (3.5-5.1) mmol/L BUN 128 H* (9-20) mg/dL Creatinine 10.35 H* (0.66-1.25) mg/dL Glucose 156 H (74-99) mg/dL AST 14 L (17-59) U/L Total Protein 5.2 L (6.3-8.2) g/dL Albumin 2.8 L (3.5-5.0) g/dL Microbiology - Last 24 Hours (Table) 10/14/24 16:34 Blood Culture Gram Stain - Final Blood Blood Culture - Preliminary Assessment and Plan Assessment: 1. Acute kidney injury, obstructive uropathy with CT scan showing bilateral hydronephrosis with possible underlying lymphadenopathy. Thickening of the bladder wall was noted as well. Patient may need renal replacement therapy. No significant uremic symptoms currently. Good urine output noted. No improvement in renal function with Loya catheter placement. Stents could not be placed due to severely enlarged prostate. Patient will need nephrostomy tubes. 2. Hyperkalemia associated with severe acute kidney injury. Patient is nonoliguric and expect improvement with medical management. Nonoliguric 3. BPH 4. Bilateral hydronephrosis possible underlying lymphadenopathy with concern for possible malignancy, being followed by urology 5. Anion gap metabolic acidosis associated with severe acute kidney injury and obstructive uropathy 6. Hematuria secondary to possible underlying bladder malignancy versus bleeding from the prostate Plan: Continue with normal saline Repeat [facility] Patient will need to be transferred to tertiary care center for placement of nephrostomy tubes as IR is currently not available. Avoid any nephrotoxic agents
[2024-10-18] MEDS ORDERED: SODIUM ZIRCONIUM CYCLOSILICATE 10 GM PACKET PO SCH (16:00)
--- NOTE | 2024-10-18 17:47 | P.PN ---
Subjective Progress Note Date: 10/18/24 Odell Reza is a 78-year-old male patient who presented with concerns of urinary retention. Patient had a feeling like he could not urinate and was also recently seen by oven equipment repairer secondary to worsening kidney function. Patient has a past medical history of gout and prostate disorder. Testing the emergency room revealed moderate to marked left renal atrophy no renal calcifications moderate hydronephrosis, ill definition of the pelvic structures including the urinary bladder and prostate gland but there is a high suspicion for bilateral pelvic adenopathy or and/or neoplasm from the prostate gland or urinary bladder. Lab work completed showing creatinine of 12.13 bun 159, potassium 7.3, he moglobin 11.9 and white blood cell 11.55. Patient was given potassium reducing cocktail multiple times in ER. Loya catheter also placed with dark urine output. At this time nephrology and urology services have been consulted awaiting further recommendations. Repeat labs this a.m. potassium 5.5 creatinine 11.56 and bun 145. At this time patient denies chest pain or shortness of breath. Patient denies nausea vomiting or diarrhea. Current vital signs temp 98.1, heart 77, respiratory rate 18, blood pressure 122/74 with pulse ox of 96% on room air On 10/16/2024 patient was seen and examined on the medical floor he is alert and oriented x 3 in no apparent distress, he is complaining of mild pelvic discomfort, otherwise he denies any complaint, there is no fever or chills no headache or dizziness no chest pain no shortness of breath no cough no nausea or vomiting no abdominal pain no diarrhea and no urinary symptoms. Loya catheter is in and is draining clear urine at this time, nocturia has resolved. Patient is afebrile his white blood count is up from 11-14.69 kidney function is improving slowly BUN 136 creatinine 10.12 and potassium 5.5 at this time we will continue to monitor. Urine culture is showing skin and genital darron. Blood culture negative so far. no antibiotic is given at this time. On 10/17/2024 patient was seen and examined on the medical floor is alert and or iented x 3 in no apparent distress, there is no fever or chills no headache or dizziness no chest pain no shortness of breath no cough no nausea or vomiting no abdominal pain no diarrhea and no urinary symptoms. Last night patient had positive blood cultures. He was started on IV Zosyn, infectious disease consultation requested , we are awaiting decision from urology in regard to cystoscopy with stent placement , will continue to follow closely. 10/18/2024 patient was seen and examined on the medical floor, is alert and oriented x 3 in no apparent distress, there is no fever or chills no headache or dizziness no chest pain, no shortness of breath no cough no nausea or vomiting no abdominal pain no diarrhea no urinary symptoms. Patient has a Loya catheter in, draining bloody urine, underwent cystoscopy with biopsy yesterday. Creatinine is still elevated above the, awaiting further recommendation from urology and nephrology. Objective - Vital Signs Vital signs: Vital Signs Temp 97.8 F 10/18/24 16:35 Pulse 78 10/18/24 16:35 Resp 16 10/18/24 16:35 BP 117/67 10/18/24 16:35 Pulse Ox 95 10/18/24 16:35 FiO2 Intake & Output 10/17/24 10/18/24 10/18/24 18:59 06:59 18:59 Intake Total 250 0 720 Output Total 720 300 Balance -470 0 420 Weight 97.7 kg Intake: IV 250 Oral 0 0 720 Output: Urine 700 300 Uretheral (Loya) 150 Estimated Blood Loss 20 Other: Voiding Method Indwelling Catheter Indwelling Catheter Indwelling Catheter - Exam In general patient is alert and oriented x 3 in no distress HEENT head normocephalic and atraumatic Neck is supple no JVD no goiter no lymphadenopathy no carotid bruit Chest examination is clear to auscultation no crackles no wheezing Cardiac exam reveals regular heart sounds S1 and S2 no gallops no murmurs Abdomen is soft nontender no organomegaly with normal bowel sounds Extremity exam reveals no edema no cyanosis or clubbing Neurological examination reveals no gross focal deficits - Labs CBC & Chem 7: 10/18/24 07:10 10/18/24 07:10 Labs: Abnormal Lab Results - Last 24 Hours (Table) 10/18/24 10/18/24 Range/Units 07:10 07:10 WBC 20.28 H (4.50-10.00) 10*3/uL RBC 3.65 L (4.40-5.60) 10*6/uL Hgb 10.4 L (13.0-17.0) g/dL Hct 31.9 L (39.6-50.0) % Immature Gran # 0.14 H (0.00-0.04) 10*3/uL Neutrophils # 18.65 H (1.80-7.70) 10*3/uL Lymphocytes # 0.80 L (0.90-5.00) 10*3/uL Eosinophils # 0.00 L (0.04-0.35) 10*3/uL Potassium 5.8 H (3.5-5.1) mmol/L BUN 128 H* (9-20) mg/dL Creatinine 10.35 H* (0.66-1.25) mg/dL Glucose 156 H (74-99) mg/dL AST 14 L (17-59) U/L Total Protein 5.2 L (6.3-8.2) g/dL Albumin 2.8 L (3.5-5.0) g/dL Microbiology - Last 24 Hours (Table) 10/17/24 07:34 Blood Culture - Preliminary Blood 10/14/24 16:34 Blood Culture Gram Stain - Final Blood Blood Culture - Preliminary Assessment and Plan Plan: Urinary retention. Loya catheter placed Hyperkalemia secondary to SANJUANA Acute kidney injury Abnormal CT concerns of bladder malignancy. Urology services consulted History of BPH DVT prophylaxis Lovenox. GI prophylax Protonix Nephrology and urology services consulted Potassium lowering cocktail given in ER Repeat labs ordered Urine cultures ordered
[2024-10-19 10:07] LABS: ALT 17 U/L (4-49); AST 14 U/L (17-59); African American GFR (CKD) 5 (>60 ml/min/1.73 sqM); Albumin 2.8 g/dL (3.5-5.0); Alkaline Phosphatase 49 U/L (38-126); Anion Gap 12 mmol/L; Calcium 8.2 mg/dL (8.4-10.2); Carbon Dioxide 21 mmol/L (22-30); Chloride 101 mmol/L (98-107); Glucose 134 mg/dL (74-99); Non-African American GFR(CKD) 4 (>60 ml/min/1.73 sqM); Potassium 5.3 mmol/L (3.5-5.1); Sodium 134 mmol/L (137-145); Total Bilirubin 0.5 mg/dL (0.2-1.3); Total Protein 5.1 g/dL (6.3-8.2)
[2024-10-19 10:14] LABS: Basophils # (A) 0.04 10*3/uL (0.00-0.10); Basophils % (A) 0.3 %; Eosinophils # (A) 0.57 10*3/uL (0.04-0.35); Eosinophils % (A) 4.3 %; HCT 30.7 % (39.6-50.0); HGB 9.6 g/dL (13.0-17.0); Lymphocytes # (A) 1.35 10*3/uL (0.90-5.00); Lymphocytes % (A) 10.1 %; MCH 27.7 pg (27.0-32.0); MCHC 31.3 g/dL (32.0-37.0); MCV 88.5 fL (80.0-97.0); Mean Platelet Volume 9.4 fL (9.5-12.2); Monocytes # (A) 0.74 10*3/uL (0.20-1.00); Monocytes % (A) 5.5 %; Neutrophils # (A) 10.53 10*3/uL (1.80-7.70); Neutrophils % (A) 78.6 %; Platelet Count 364 10*3/uL (140-440); RBC 3.47 10*6/uL (4.40-5.60); RDW 13.2 % (11.5-14.5); WBC 13.39 10*3/uL (4.50-10.00)
[2024-10-19 10:37] LABS: Blood Urea Nitrogen 119 mg/dL (9-20)
--- NOTE | 2024-10-19 10:41 | P.PN ---
Subjective Progress Note Date: 10/19/24 Odell Reza is a 78-year-old male patient who presented with concerns of urinary retention. Patient had a feeling like he could not urinate and was also recently seen by membership solicitor secondary to worsening kidney function. Patient has a past medical history of gout and prostate disorder. Testing the emergency room revealed moderate to marked left renal atrophy no renal calcifications moderate hydronephrosis, ill definition of the pelvic structures including the urinary bladder and prostate gland but there is a high suspicion for bilateral pelvic adenopathy or and/or neoplasm from the prostate gland or urinary bladder. Lab work completed showing creatinine of 12.13 bun 159, potassium 7.3, he moglobin 11.9 and white blood cell 11.55. Patient was given potassium reducing cocktail multiple times in ER. Loya catheter also placed with dark urine output. At this time nephrology and urology services have been consulted awaiting further recommendations. Repeat labs this a.m. potassium 5.5 creatinine 11.56 and bun 145. At this time patient denies chest pain or shortness of breath. Patient denies nausea vomiting or diarrhea. Current vital signs temp 98.1, heart 77, respiratory rate 18, blood pressure 122/74 with pulse ox of 96% on room air On 10/16/2024 patient was seen and examined on the medical floor he is alert and oriented x 3 in no apparent distress, he is complaining of mild pelvic discomfort, otherwise he denies any complaint, there is no fever or chills no headache or dizziness no chest pain no shortness of breath no cough no nausea or vomiting no abdominal pain no diarrhea and no urinary symptoms. Loya catheter is in and is draining clear urine at this time, nocturia has resolved. Patient is afebrile his white blood count is up from 11-14.69 kidney function is improving slowly BUN 136 creatinine 10.12 and potassium 5.5 at this time we will continue to monitor. Urine culture is showing skin and genital darron. Blood culture negative so far. no antibiotic is given at this time. On 10/17/2024 patient was seen and examined on the medical floor is alert and or iented x 3 in no apparent distress, there is no fever or chills no headache or dizziness no chest pain no shortness of breath no cough no nausea or vomiting no abdominal pain no diarrhea and no urinary symptoms. Last night patient had positive blood cultures. He was started on IV Zosyn, infectious disease consultation requested , we are awaiting decision from urology in regard to cystoscopy with stent placement , will continue to follow closely. 10/18/2024 patient was seen and examined on the medical floor, is alert and oriented x 3 in no apparent distress, there is no fever or chills no headache or dizziness no chest pain, no shortness of breath no cough no nausea or vomiting no abdominal pain no diarrhea no urinary symptoms. Patient has a Loya catheter in, draining bloody urine, underwent cystoscopy with biopsy yesterday. Creatinine is still elevated above the, awaiting further recommendation from urology and nephrology.' On 10/19/2024 patient is alert and oriented x 3. Per nephrology and urology services recommendations to transfer to tertiary facility for bilateral nephrostomy tube placement due to unsuccessful placement of stents due to enlarged prostate. Transfer has been initiated to [facility] at this time Objective - Vital Signs Vital signs: Vital Signs Temp 97.7 F 10/19/24 08:00 Pulse 74 10/19/24 08:00 Resp 18 10/19/24 08:00 BP 120/69 10/19/24 08:00 Pulse Ox 95 10/19/24 08:00 FiO2 Intake & Output 10/18/24 10/19/24 10/19/24 18:59 06:59 18:59 Intake Total 900 240 Output Total 300 200 200 Balance 600 -200 40 Weight 101.7 kg Intake: Oral 900 240 Output: Urine 300 200 200 Other: Voiding Method Indwelling Catheter Indwelling Catheter - Exam In general patient is alert and oriented x 3 in no distress HEENT head normocephalic and atraumatic Neck is supple no JVD no goiter no lymphadenopathy no carotid bruit Chest examination is clear to auscultation no crackles no wheezing Cardiac exam reveals regular heart sounds S1 and S2 no gallops no murmurs Abdomen is soft nontender no organomegaly with normal bowel sounds Extremity exam reveals no edema no cyanosis or clubbing Neurological examination reveals no gross focal deficits - Labs CBC & Chem 7: 10/19/24 09:29 10/19/24 09:29 Labs: Abnormal Lab Results - Last 24 Hours (Table) 10/19/24 10/19/24 Range/Units 09: 09:29 WBC 13.39 H (4.50-10.00) 10*3/uL RBC 3.47 L (4.40-5.60) 10*6/uL Hgb 9.6 L (13.0-17.0) g/dL Hct 30.7 L (39.6-50.0) % MCHC 31.3 L (32.0-37.0) g/dL MPV 9.4 L (9.5-12.2) fL Immature Gran # 0.16 H (0.00-0.04) 10*3/uL Neutrophils # 10.53 H (1.80-7.70) 10*3/uL Eosinophils # 0.57 H (0.04-0.35) 10*3/uL Sodium 134 L (137-145) mmol/L Potassium 5.3 H (3.5-5.1) mmol/L Carbon Dioxide 21 L (22-30) mmol/L BUN 119 H* (9-20) mg/dL Creatinine 10.75 H* (0.66-1.25) mg/dL Glucose 134 H (74-99) mg/dL Calcium 8.2 L (8.4-10.2) mg/dL AST 14 L (17-59) U/L Total Protein 5.1 L (6.3-8.2) g/dL Albumin 2.8 L (3.5-5.0) g/dL Microbiology - Last 24 Hours (Table) 10/17/24 07:34 Blood Culture - Preliminary Blood 10/14/24 16:34 Blood Culture Gram Stain - Final Blood Blood Culture - Preliminary Assessment and Plan Plan: Urinary retention. Loya catheter placed Hyperkalemia secondary to SANJUANA Bacteremia. Infectious disease services are following. Patient on Zosyn Acute kidney injury Abnormal CT concerns of bladder malignancy. Urology services consulted History of BPH DVT prophylaxis Lovenox. GI prophylax Protonix Nephrology and urology services consulted Status post cystoscopy with failed retrograde pyelograms due to enlarged prostate Recommendations to transfer to [facility] with IR for possible bilateral nephrostomy tubes due to ongoing renal failure Urine cultures ordered
--- NOTE | 2024-10-19 12:55 | P.PN ---
Subjective Patient is seen for follow-up for acute kidney injury, obstructive uropathy Serum creatinine has not improved much with Loya catheter placement. Creatinine decreased to 10.1-10.7 from 13.3 on admission. Patient was taken to the OR and stents could not be placed. He continues with Loya catheter. Serum creatinine remains elevated at 10. Patient will need bilateral nephrostomy tubes and further prostatic surgery down the road. IR is not available for nephrostomy tube placement therefore patient will be transferred out No complaints of nausea or vomiting. Tolerating oral intake. Objective - Vital Signs Vital signs: Vital Signs Temp 98.0 F 10/19/24 12:00 Pulse 95 10/19/24 12:00 Resp 18 10/19/24 12:00 BP 111/66 10/19/24 12:00 Pulse Ox 94 L 10/19/24 12:00 FiO2 Intake & Output 10/18/24 10/19/24 10/19/24 18:59 06:59 18:59 Intake Total 900 240 Output Total 300 200 200 Balance 600 -200 40 Weight 101.7 kg Intake: Oral 900 240 Output: Urine 300 200 200 Other: Voiding Method Indwelling Catheter Indwelling Catheter - Exam Patient is awake, comfortable, no acute distress Examination of the heart S1 and S2 Examination of the lungs bilateral breath sounds are heard Abdomen is soft nontender Examination of lower extremities shows no significant edema [employer] exam is 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 No tremors/asterixis noted - Labs CBC & Chem 7: 10/19/24 09:29 10/19/24 09:29 Labs: Abnormal Lab Results - Last 24 Hours (Table) 10/19/24 10/19/24 Range/Units 09:29 09:29 WBC 13.39 H (4.50-10.00) 10*3/uL RBC 3.47 L (4.40-5.60) 10*6/uL Hgb 9.6 L (13.0-17.0) g/dL Hct 30.7 L (39.6-50.0) % MCHC 31.3 L (32.0-37.0) g/dL MPV 9.4 L (9.5-12.2) fL Immature Gran # 0.16 H (0.00-0.04) 10*3/uL Neutrophils # 10.53 H (1.80-7.70) 10*3/uL Eosinophils # 0.57 H (0.04-0.35) 10*3/uL Sodium 134 L (137-145) mmol/L Potassium 5.3 H (3.5-5.1) mmol/L Carbon Dioxide 21 L (22-30) mmol/L BUN 119 H* (9-20) mg/dL Creatinine 10.75 H* (0.66-1.25) mg/dL Glucose 134 H (74-99) mg/dL Calcium 8.2 L (8.4-10.2) mg/dL AST 14 L (17-59) U/L Total Protein 5.1 L (6.3-8.2) g/dL Albumin 2.8 L (3.5-5.0) g/dL Microbiology - Last 24 Hours (Table) 10/17/24 07:34 Blood Culture - Preliminary Blood 10/14/24 16:34 Blood Culture Gram Stain - Final Blood Blood Culture - Preliminary Assessment and Plan Assessment: 1. Acute kidney injury, obstructive uropathy with CT scan showing bilateral hydronephrosis with possible underlying lymphadenopathy. Thickening of the bladder wall was noted as well. Patient will need renal replacement therapy if no improvement in renal function with nephrostomy tube placement. No significant uremic symptoms currently. Good urine output noted. No improvement in renal function with Loya catheter placement. Stents could not be placed due to severely enlarged prostate. Patient will need nephrostomy tubes. He is being transferred to [facility] as interventional radiology is not available currently. 2. Hyperkalemia associated with severe acute kidney injury. Patient is nonoliguric and expect improvement with medical management. Nonoliguric 3. BPH 4. Bilateral hydronephrosis possible underlying lymphadenopathy with concern for possible malignancy, being followed by urology 5. Anion gap metabolic acidosis associated with severe acute kidney injury and obstructive uropathy 6. Hematuria secondary to possible underlying bladder malignancy versus bleeding from the prostate Plan: Continue with normal saline Monitor electrolytes No acute indication for hemodialysis today Patient will need to be transferred to [facility] for placement of nephrostomy tubes as IR is currently not available. Avoid any nephrotoxic agents
--- NOTE | 2024-10-19 16:56 | P.PN ---
Subjective Progress Note Date: 10/18/24 Principal diagnosis: Reason for follow-up is bacteremia Patient is a 78-year-old male past medical history significant for gout prostate disorder presenting to the hospital for evaluation of urinary retention as well as been complaining of urgency incontinence and blood in the urine patient did have positive blood culture prompting this consultation On today's evaluation that is 10/18/2024, patient has been afebrile, patient is breathing comfortably and is currently on room air, patient denies having any chest pain and cough, patient denies nausea vomiting or diarrhea lower abdominal discomfort still having hematuria. Patient white count is up to 20.28 creatinine is 10.35 Objective - Vital Signs Vital signs: Vital Signs Temp 98 F 10/18/24 11:38 Pulse 83 10/18/24 11:38 Resp 16 10/18/24 11:38 BP 129/68 10/18/24 11:38 Pulse Ox 97 10/18/24 11:38 FiO2 Intake & Output 10/17/24 10/18/24 10/18/24 18:59 06:59 18:59 Intake Total 250 0 720 Output Total 720 300 Balance -470 0 420 Weight 97.7 kg Intake: IV 250 Oral 0 0 720 Output: Urine 700 300 Uretheral (Loya) 150 Estimated Blood Loss 20 Other: Voiding Method Indwelling Catheter Indwelling Catheter Indwelling Catheter - Exam GENERAL DESCRIPTION: An elderly male lying in bed in no distress RESPIRATORY SYSTEM: Unlabored breathing , decreased breath sounds at bases HEART: S1 S2 regular rate and rhythm , ABDOMEN: Soft , no tenderness EXTREMITIES: No edema feet - Labs CBC & Chem 7: 10/19/24 09:29 10/19/24 09:29 Labs: Abnormal Lab Results - Last 24 Hours (Table) 10/18/24 10/18/24 Range/Units 07:10 07:10 WBC 20.28 H (4.50-10.00) 10*3/uL RBC 3.65 L (4.40-5.60) 10*6/uL Hgb 10.4 L (13.0-17.0) g/dL Hct 31.9 L (39.6-50.0) % Immature Gran # 0.14 H (0.00-0.04) 10*3/uL Neutrophils # 18.65 H (1.80-7.70) 10*3/uL Lymphocytes # 0.80 L (0.90-5.00) 10*3/uL Eosinophils # 0.00 L (0.04-0.35) 10*3/uL Potassium 5.8 H (3.5-5.1) mmol/L BUN 128 H* (9-20) mg/dL Creatinine 10.35 H* (0.66-1.25) mg/dL Glucose 156 H (74-99) mg/dL AST 14 L (17-59) U/L Total Protein 5.2 L (6.3-8.2) g/dL Albumin 2.8 L (3.5-5.0) g/dL Microbiology - Last 24 Hours (Table) 10/14/24 16:34 Blood Culture Gram Stain - Final Blood Blood Culture - Preliminary Assessment and Plan (1) Bacteremia Current Visit: Yes Status: Acute Code(s): R78.81 - BACTEREMIA SNOMED Code(s): 5479173 (2) Leukocytosis Current Visit: Yes Status: Acute Code(s): D72.829 - ELEVATED WHITE BLOOD CELL COUNT, UNSPECIFIED SNOMED Code(s): 402306303 Plan: 1patient with positive blood culture gram-negative bacilli source could likely be the urinary as the patient did presented with significant urinary symptoms of difficult urination dribbling and did have hematuria with significant abnormality was seen on the CT as well as the ultrasound, patient also have some gram-positive cocci in clusters in the blood source questionable urinary versus skin contamination 2-leukocytosis more likely related to his urinary source, slight worsening the need will monitor closely 3-blood culture have been repeated document clearance which are currently pending 4-patient to continue Zosyn while waiting for sensitivity to finalize Dictation was produced using [employer] software. please excuse any grammatical, word or spelling errors. Time with Patient: Less than 30
--- NOTE | 2024-10-19 16:57 | P.PN ---
Subjective Progress Note Date: 10/19/24 Principal diagnosis: Reason for follow-up is bacteremia Patient is a 78-year-old male past medical history significant for gout prostate disorder presenting to the hospital for evaluation of urinary retention as well as been complaining of urgency incontinence and blood in the urine patient did have positive blood culture prompting this consultation On today's evaluation that is 10/19/2024, Patient is afebrile this morning patient denies having any chest pain shortness of breath or cough, the patient is currently on room air, patient denies any abdominal pain no diarrhea no nausea no vomiting Patient white count is down to 13.39 creatinine is 10.75 blood culture repeat so far negative Objective - Vital Signs Vital signs: Vital Signs Temp 98.0 F 10/19/24 12:00 Pulse 95 10/19/24 12:00 Resp 18 10/19/24 12:00 BP 111/66 10/19/24 12:00 Pulse Ox 94 L 10/19/24 12:00 FiO2 Intake & Output 10/18/24 10/19/24 10/19/24 18:59 06:59 18:59 Intake Total 900 240 Output Total 300 200 200 Balance 600 -200 40 Weight 101.7 kg Intake: Oral 900 240 Output: Urine 300 200 200 Other: Voiding Method Indwelling Catheter Indwelling Catheter - Exam GENERAL DESCRIPTION: An elderly male lying in bed in no distress RESPIRATORY SYSTEM: Unlabored breathing , decreased breath sounds at bases HEART: S1 S2 regular rate and rhythm , ABDOMEN: Soft , no tenderness EXTREMITIES: No edema feet - Labs CBC & Chem 7: 10/19/24 09:29 10/19/24 09:29 Labs: Abnormal Lab Results - Last 24 Hours (Table) 10/19/24 10/19/24 Range/Units 09:29 09:29 WBC 13.39 H (4.50-10.00) 10*3/uL RBC 3.47 L (4.40-5.60) 10*6/uL Hgb 9.6 L (13.0-17.0) g/dL Hct 30.7 L (39.6-50.0) % MCHC 31.3 L (32.0-37.0) g/dL MPV 9.4 L (9.5-12.2) fL Immature Gran # 0.16 H (0.00-0.04) 10*3/uL Neutrophils # 10.53 H (1.80-7.70) 10*3/uL Eosinophils # 0.57 H (0.04-0.35) 10*3/uL Sodium 134 L (137-145) mmol/L Potassium 5.3 H (3.5-5.1) mmol/L Carbon Dioxide 21 L (22-30) mmol/L BUN 119 H* (9-20) mg/dL Creatinine 10.75 H* (0.66-1.25) mg/dL Glucose 134 H (74-99) mg/dL Calcium 8.2 L (8.4-10.2) mg/dL AST 14 L (17-59) U/L Total Protein 5.1 L (6.3-8.2) g/dL Albumin 2.8 L (3.5-5.0) g/dL Microbiology - Last 24 Hours (Table) 10/17/24 07:34 Blood Culture - Preliminary Blood 10/14/24 16:34 Blood Culture Gram Stain - Final Blood Blood Culture - Preliminary Assessment and Plan (1) Bacteremia Current Visit: Yes Status: Acute Code(s): R78.81 - BACTEREMIA SNOMED Code(s): 1299290 (2) Leukocytosis Current Visit: Yes Status: Acute Code(s): D72.829 - ELEVATED WHITE BLOOD CELL COUNT, UNSPECIFIED SNOMED Code(s): 762399349 Plan: 1patient with positive blood culture gram-negative bacilli source could likely be the urinary as the patient did presented with significant urinary symptoms of difficult urination dribbling and did have hematuria with significant abnormality was seen on the CT as well as the ultrasound, patient also have some gram-positive cocci in clusters in the blood source questionable urinary versus skin contamination 2-leukocytosis more likely related to his urinary source, patient white count is trending down 3-blood culture have been repeated which are so far negative 4-still today on the ID and sensitivity of the first blood culture for now continue Zosyn while waiting for sensitivity to finalize Dictation was produced using [employer] software. please excuse any grammatical, word or spelling errors. Time with Patient: Less than 30
[2024-10-19 21:49] VITALS: RESP 18; TEMP 97.8
[2024-10-20 00:58] VITALS: BP 116/65; PULSE 83
== END 2024-10-20 00:58 | disposition short-term general hospital (02) | DRG 669 ==
LOC: EC 13:54 → 3SCARD 16:31
PROVIDERS: ADMIT Internal Medicine; ATTEND Internal Medicine
PROC: 0TCB8ZZ Extirpation of Matter from Bladder, Via Natural or Artificial Opening Endoscopic (ICD-10-PCS; principal; 2024-10-17 10:30)
PROC: 0TBB8ZX Excision of Bladder, Via Natural or Artificial Opening Endoscopic, Diagnostic (ICD-10-PCS; principal; 2024-10-17 10:30)
DX: N17.9 Acute kidney failure, unspecified (principal); N13.8 Other obstructive and reflux uropathy; N18.9 Chronic kidney disease, unspecified; N32.9 Bladder disorder, unspecified; N39.41 Urge incontinence; N40.1 Benign prostatic hyperplasia with lower urinary tract symptoms; R31.0 Gross hematuria; R33.9 Retention of urine, unspecified; M10.9 Gout, unspecified; R59.0 Localized enlarged lymph nodes; R31.9 Hematuria, unspecified; E87.5 Hyperkalemia; Z79.899 Other long term (current) drug therapy; Z53.09 Procedure and treatment not carried out because of other contraindication; Z53.20 Procedure and treatment not carried out because of patient's decision for unspecified reasons; Z79.82 Long term (current) use of aspirin
CPT/HCPCS: 36415; 51702; 74176; 74420; 76770; 80048; 80051; 80053; 81001; 84132; 85025; 87040; 87086; 88305; 88342; 93005; 94640; 96361; 96365; 96366; 96368; 96375; 96376; 99291

== ENCOUNTER 2024-10-30 11:42 | Emergency (ER) | payer MEDICARE ==
[2024-10-30 11:54] VITALS: TEMP 98.1
[2024-10-30 12:59] LABS: Basophils # (A) 0.05 10*3/uL (0.00-0.10); Basophils % (A) 0.5 %; Eosinophils # (A) 0.19 10*3/uL (0.04-0.35); HCT 37.7 % (39.6-50.0); HGB 12.2 g/dL (13.0-17.0); Lymphocytes % (A) 13.5 %; MCH 27.9 pg (27.0-32.0); MCHC 32.4 g/dL (32.0-37.0); MCV 86.1 fL (80.0-97.0); Mean Platelet Volume 10.3 fL (9.5-12.2); Monocytes # (A) 0.66 10*3/uL (0.20-1.00); Monocytes % (A) 6.9 %; Neutrophils # (A) 7.39 10*3/uL (1.80-7.70); Neutrophils % (A) 76.7 %; Platelet Count 391 10*3/uL (140-440); RBC 4.38 10*6/uL (4.40-5.60); RDW 13.3 % (11.5-14.5); WBC 9.63 10*3/uL (4.50-10.00)
[2024-10-30 13:13] LABS: ALT 16 U/L (4-49); AST 19 U/L (17-59); African American GFR (CKD) 43 (>60 ml/min/1.73 sqM); Albumin 3.9 g/dL (3.5-5.0); Anion Gap 10 mmol/L; Blood Urea Nitrogen 23 mg/dL (9-20); Calcium 9.7 mg/dL (8.4-10.2); Carbon Dioxide 22 mmol/L (22-30); Chloride 106 mmol/L (98-107); Glucose 118 mg/dL (74-99); Non-African American GFR(CKD) 37 (>60 ml/min/1.73 sqM); Potassium 4.2 mmol/L (3.5-5.1); Sodium 138 mmol/L (137-145); Total Bilirubin 0.7 mg/dL (0.2-1.3); Total Protein 6.8 g/dL (6.3-8.2)
[2024-10-30 13:14] LABS: Alkaline Phosphatase 87 U/L (38-126)
--- NOTE | 2024-10-30 13:33 | ED ---
Abdominal Pain HPI - General Chief Complaint: Abdominal Pain Stated Complaint: Urogenital,R sided flank pain Time Seen by Provider: 10/30/24 11:48 Source: patient, RN notes reviewed Mode of arrival: ambulatory Limitations: no limitations - History of Present Illness Initial Comments: 78-year-old male presents emergency department chief complaint of blocked nephrostomy tubes. Patient states he was having good output but states that he just recently stopped and contacted urology who advised him to flush out but he was unsure how. Patient denies fever chills no headache no dizziness chest pain or shortness of breath. No fevers. Patient states he has had minimal output on the left since it was placed but states there is some drainage more on the right. - Related Data Home Medications Medication Instructions Recorded Confirmed Calcium Carbonate [Calcium] 600 mg PO DAILY 10/14/24 10/14/24 Gabapentin 300 mg PO DAILY PRN 10/14/24 10/14/24 Gabapentin [Neurontin] 300 mg PO HS 10/14/24 10/14/24 Multivitamins, Thera [Multivitamin 1 tab PO DAILY 10/14/24 10/14/24 (formulary)] oxyCODONE-APAP 7.5-325MG [Percocet 1 tab PO TID 10/14/24 10/14/24 7.5-325 mg] Allergies Allergy/AdvReac Type Severity Reaction Status Date / Time No Known Allergies Allergy Verified 10/30/24 11:54 Review of Systems ROS Statement: Those systems with pertinent positive or pertinent negative responses have been documented in the HPI. ROS Other: All systems not noted in ROS Statement are negative. Past Medical History Past Medical History: Prostate Disorder Additional Past Medical History / Comment(s): Gout. bilateral kidney stents History of Any Multi-Drug Resistant Organisms: None Reported Past Surgical History: Orthopedic Surgery Additional Past Surgical History / Comment(s): left ankle replacement Past Anesthesia/Blood Transfusion Reactions: No Reported Reaction Past Psychological History: No Psychological Hx Reported Smoking Status: Never smoker Past Alcohol Use History: None Reported Past Drug Use History: None Reported General Exam Limitations: no limitations General appearance: alert, in no apparent distress Head exam: Present: atraumatic, normocephalic, normal inspection Eye exam: Present: normal appearance, PERRL, EOMI. Absent: scleral icterus, conjunctival injection, periorbital swelling ENT exam: Present: normal exam, normal oropharynx, mucous membranes moist Neck exam: Present: normal inspection, full ROM. Absent: tenderness, meningismus, lymphadenopathy Respiratory exam: Present: normal lung sounds bilaterally. Absent: respiratory distress, wheezes, rales, rhonchi, stridor Cardiovascular Exam: Present: normal rhythm, tachycardia, normal heart sounds. Absent: systolic murmur, diastolic murmur, rubs, gallop, clicks GI/Abdominal exam: Present: soft, normal bowel sounds. Absent: distended, tenderness, guarding, rebound, rigid Back exam: Absent: CVA tenderness (R), CVA tenderness (L) Neurological exam: Present: alert, oriented X3 Course Vital Signs 10/30/24 10/30/24 10/30/24 11:50 14:24 15:14 Temperature 98.1 F Pulse Rate 117 H 91 88 Respiratory 18 19 18 Rate Blood Pressure 124/78 129/79 120/69 O2 Sat by Pulse 99 97 98 Oximetry Medical Decision Making - Medical Decision Making Was pt. sent in by a medical professional or institution (Dr. PA, [employer], urgent care, hospital, or half-way...) When possible be specific @ -No Did you speak to anyone other than the patient for history (EMS, parent, family, police, friend...)? What history was obtained from this source @ -No Did you review nursing and triage notes (agree or disagree)? Why? @ -I reviewed and agree with nursing and triage notes Were old charts reviewed (outside hosp., previous admission, EMS record, old EKG, old radiological studies, urgent care reports/EKG's, half-way records)? Report findings @ -No old charts were reviewed Differential Diagnosis (chest pain, altered mental status, abdominal pain women, abdominal pain men, vaginal bleeding, weakness, fever, dyspnea, syncope, headache, dizziness, GI bleed, back pain, seizure, CVA, palpatations, mental health, musculoskeletal)? @ -Differential Abdominal Pain Men: Appendicitis, cholecystitis, diverticulosis, ischemic bowel, pancreatitis, hepatitis, UTI, gastroenteritis, AAA, incarcerated hernia, bowel obstruction, constipation, inflammatory bowel, hepatitis, peptic ulcer disease, splenic infarction, perforated viscus, testicular torsion, this is not meant to be an all-inclusive list EKG interpreted by me (3pts min.). @ -None X-rays interpreted by me (1pt min.). @ -None done CT interpreted by me (1pt min.). @ -None done U/S interpreted by me (1pt. min.). @ -None done What testing was considered but not performed or refused? (CT, X-rays, U/S, labs)? Why? @ -None What meds were considered but not given or refused? Why? @ -None Did you discuss the management of the patient with other professionals (professionals i.e. , PA, [employer], lab, RT, psych nurse, social service liaison, shot hole driller, teacher, penal officer, major case detective)? Give summary @ -No Was smoking cessation discussed for >3mins.? @ -No Was critical care preformed (if so, how long)? @ -No Were there social determinants of health that impacted care today? How? (Homelessness, low income, unemployed, alcoholism, drug addiction, transportation, low edu. Level, literacy, decrease access to med. care, custodial, rehab)? @ -No Was there de-escalation of care discussed even if they declined (Discuss DNR or withdrawal of care, Hospice)? DNR status @ -No What co-morbidities impacted this encounter? (DM, HTN, Smoking, COPD, CAD, Cancer, CVA, ARF, Chemo, Hep., AIDS, mental health diagnosis, sleep apnea, morbid obesity)? @ -None Was patient admitted / discharged? Hospital course, mention meds given and route, prescriptions, significant lab abnormalities, going to OR and other pertinent info. @ -Discharge nephrostomy tubes were irrigated and has equal flow, patient laboratory studies have improved. Patient was discharged in stable condition tumor discussed. Undiagnosed new problem with uncertain prognosis? @ -No Drug Therapy requiring intensive monitoring for toxicity (Heparin, Nitro, Insul in, Cardizem)? @ -No Were any procedures done? @ -No Diagnosis/symptom? @ -Nephrostomy complication Acute, or Chronic, or Acute on Chronic? @ -Acute Uncomplicated (without systemic symptoms) or Complicated (systemic symptoms)? @ -Uncomplicated Side effects of treatment? @ -No Exacerbation, Progression, or Severe Exacerbation? @ -No Poses a threat to life or bodily function? How? (Chest pain, [place], [place], pneumonia, PE, COPD, DKA, ARF, appy, cholecystitis, CVA, Diverticulitis, Homicidal, Suicidal, threat to staff... and all critical care pts) @ -No - Lab Data Result diagrams: 10/30/24 12:46 10/30/24 12:46 Lab Results 10/30/24 10/30/24 Range/Units 12:46 12:46 WBC 9.63 (4.50-10.00) 10*3/uL RBC 4.38 L (4.40-5.60) 10*6/uL Hgb 12.2 L (13.0-17.0) g/dL Hct 37.7 L (39.6-50.0) % MCV 86.1 (80.0-97.0) fL MCH 27.9 (27.0-32.0) pg MCHC 32.4 (32.0-37.0) g/dL Plt Count 391 (140-440) 10*3/uL MPV 10.3 (9.5-12.2) fL Immature Gran % (Auto) 0.4 % Neutrophils % 76.7 % Lymphocytes % 13.5 % Monocytes % 6.9 % Eosinophils % 2.0 % Basophils % 0.5 % Immature Gran # 0.04 (0.00-0.04) 10*3/uL Neutrophils # 7.39 (1.80-7.70) 10*3/uL Lymphocytes # 1.30 (0.90-5.00) 10*3/uL Monocytes # 0.66 (0.20-1.00) 10*3/uL Eosinophils # 0.19 (0.04-0.35) 10*3/uL Basophils # 0.05 (0.00-0.10) 10*3/uL Sodium 138 (137-145) mmol/L Potassium 4.2 (3.5-5.1) mmol/L Chloride 106 (98-107) mmol/L Carbon Dioxide 22 (22-30) mmol/L Anion Gap 10 mmol/L BUN 23 H (9-20) mg/dL Creatinine 1.73 H (0.66-1.25) mg/dL Est GFR (CKD-EPI)AfAm 43 (>60 ml/min/1.73 sqM) Est GFR (CKD-EPI)NonAf 37 (>60 ml/min/1.73 sqM) Glucose 118 H (74-99) mg/dL Calcium 9.7 (8.4-10.2) mg/dL Total Bilirubin 0.7 (0.2-1.3) mg/dL AST 19 (17-59) U/L ALT 16 (4-49) U/L Alkaline Phosphatase 87 (38-126) U/L Total Protein 6.8 (6.3-8.2) g/dL Albumin 3.9 (3.5-5.0) g/dL Disposition Clinical Impression: Nephrostomy complication Disposition: HOME SELF-CARE Condition: Stable Additional Instructions: Please return to the Emergency Department if symptoms worsen or any other concerns. Is patient prescribed a controlled substance at d/c from ED?: No Referrals: Janay Wheeler MD [Primary Care Provider] - 1-2 days Time of Disposition: 15:07
[2024-10-30 15:16] VITALS: BP 120/69; PULSE 88; RESP 18
== END 2024-10-30 15:16 | disposition home or self-care (01) ==
LOC: EC 11:42
DX: N99.528 Other complication of incontinent external stoma of urinary tract (principal)
CPT/HCPCS: 36415; 80053; 85025; 87086; 99284

== ENCOUNTER → 2024-11-19 | Outpatient (CLI) | payer MEDICARE ==
--- NOTE | 2024-11-22 16:58 | PE ---
EXAMINATION TYPE: PET CT fusion skull to thigh DATE OF EXAM: 11/19/2024 CLINICAL INDICATION:Male, 79 years old with history of R59.0 LOCALIZED ENLARGED LYMPH NODES; TECHNIQUE: Following the intravenous administration of 10.99 mCi of F-18 FDG, whole body images are performed from the skull base to the midthigh. Images are reviewed on the computer in the coronal, axial, and sagittal planes. Reconstructed rotating images are created on independent workstation and reviewed on the computer. A non-contrast CT is performed in conjunction with the PET scan. Glucose level 86 mg/dL CT DLP: 1202 mGycm, Automated exposure control for dose reduction was used. COMPARISON: CT 10/14/2024, PET/CT None, MRI: None FINDINGS: Mediastinal SUV mean is 2.4. Hepatic parenchyma SUV mean is 3.0. SKULL BASE AND NECK: No suspicious radiotracer activity. CHEST, MEDIASTINUM, AND HILAR REGION: Left apical pleural-based linear opacity measuring 1 cm with a maximum SUV of 3.7. Medial right lower lobe 1 cm focal nodular opacity with a maximum SUV of 4.0. ABDOMEN AND PELVIS: Marked circumferential wall thickening of the underdistended urinary bladder with Loya catheter in p lace. Stranding perivesicular fat stranding with multiple bladder diverticula identified. Loss of fat plane with the prostate gland and the adjacent sigmoid colon. Abnormal soft tissue encasement of the sigmoid colon. There is marked FDG activity within this region with a max SUV of 14.3. Additional anterior perivesicular lymph nodes measuring up to 1.1 cm with a maximum SUV of 8.9. Enlar ged perirectal lymph nodes measuring up to 0.9 cm with a maximum SUV of 11.4. Enlarged right external iliac chain lymph node measuring up to 1.7 cm with a maximum SUV of 3.7. MUSCULOSKELETAL STRUCTURES: Left ischial tuberosity 1.6 cm lytic lesion with FDG activity. Demonstrates a max SUV of 16.5. Destructive left pubic symphysis lesion measuring approximately 3.4 cm with a maximum SUV of 18.9. OTHER CT: Bovine aortic arch. Ascending thoracic aortic aneurysm measuring up to 4.6 cm. Mild cardiom egaly. Small hiatal hernia. Atrophy of the left kidney. Bilateral percutaneous nephrostomy tubes. Mod erate bilateral hydroureteronephrosis without obstructing calculus. There is poor visualization of th e distal ureters bilaterally. Loya catheter identified. Poor radiotracer appearance within the left kidney compared to the right. Enlarged prostate gland measures 6.0 cm in transverse dimension. Small fat filled umbilical hernia containing additional small mesenteric vessels. Colonic diverticulosis wi thout evidence for acute diverticulitis. Remote healing right-sided lower rib fractures. IMPRESSION: 1. Abnormal FDG avid circumferential wall thickening of the urinary bladder with additional surround ing soft tissue encasing the sigmoid colon and involvement of the prostate gland. Additional FDG avid enlarged perivesicular, internal iliac chain, and perirectal lymph nodes with a few FDG avid osseous metastasis. Highly concerning for malignancy/metastasis possibly arising from the prostate gland, si gmoid colon or urinary bladder. 2. Couple of small nodular opacities with low level FDG activity within the lung. May represent meta static disease. 3. Moderate bilateral hydroureteronephrosis likely related to obstruction/invasion from #1. Bilatera l percutaneous nephrostomy tubes demonstrated. 4. Ascending thoracic aortic aneurysm measuring up to 4.6 cm. [facility], , 11/22/2024 4:55 PM
== END | disposition home or self-care (01) ==
LOC: RADPETMAIN 11:34
PROVIDERS: ATTEND Urology
DX: I71.21 Aneurysm of the ascending aorta, without rupture (principal); R91.8 Other nonspecific abnormal finding of lung field; N13.30 Unspecified hydronephrosis; N32.89 Other specified disorders of bladder; R59.0 Localized enlarged lymph nodes; C79.51 Secondary malignant neoplasm of bone
CPT/HCPCS: 78815; A9552

== ENCOUNTER → 2024-11-22 | Outpatient (CLI) | payer MEDICARE ==
--- NOTE | 2024-11-23 09:06 | FL ---
EXAMINATION TYPE: FL nephrostogram DATE OF EXAM: 11/22/2024 COMPARISON: NONE HISTORY: Nonfunctioning left-sided nephrostomy catheter TECHNIQUE: Fluoroscopy. FINDINGS: Approximately 40 mL [id number] was injected into the patient's left-sided nephrostomy tube. Multiple fluoroscopic images were obtained which demonstrate the catheter to be malpositioned. There is extravasation into the kidney and throughout its fascia. Small amount of contrast is noted within the dilated renal collecting system. IMPRESSION: As Above. [facility], , 11/23/2024 9:04 AM
== END | disposition home or self-care (01) ==
LOC: RADFLMAIN 14:35
PROVIDERS: ATTEND Urology
DX: N13.30 Unspecified hydronephrosis (principal); N28.89 Other specified disorders of kidney and ureter; Z93.6 Other artificial openings of urinary tract status
CPT/HCPCS: 74425

== ENCOUNTER 2024-11-29 13:41 | Day surgery (SDC) | payer MEDICARE ==
[2024-11-29] MEDS: IV FLUID CONTINUATION 1,000 ML IV ONE (14:03)
[2024-11-29 14:11] VITALS: TEMP 97.3
[2024-11-29] MEDS: LACTATED RINGERS 1,000 ML IV SCH (14:18)
[2024-11-29] MEDS ORDERED: PROPOFOL 10 MG/ML 20 ML VIAL IV ONE (14:47)
--- NOTE | 2024-11-29 14:53 | P.GSHP ---
History of Present Illness H&P Date: 11/29/24 Chief Complaint: Screening colonoscopy This 79-year-old male presents today for screening colonoscopy. Patient denies any significant GI complaints. Past Medical History Past Medical History: Prostate Disorder Additional Past Medical History / Comment(s): Gout. bilateral kidney stents currently in right kidney History of Any Multi-Drug Resistant Organisms: None Reported Past Surgical History: Orthopedic Surgery Additional Past Surgical History / Comment(s): left ankle repair for arthritis and swelling . kidney stents placed Past Anesthesia/Blood Transfusion Reactions: No Reported Reaction Smoking Status: Never smoker Medications and Allergies Home Medications Medication Instructions Recorded Confirmed Type Multivitamins, Thera [Multivitamin 1 tab PO DAILY 10/14/24 11/29/24 History (formulary)] Magnesium (Unk) 1 tab PO DAILY 11/26/24 11/29/24 History Allergies Allergy/AdvReac Type Severity Reaction Status Date / Time No Known Allergies Allergy Verified 11/29/24 14:08 Surgical - Exam Vital Signs Temp Resp BP Pulse Ox 97.3 F L 16 94/67 100 11/29/24 14:09 11/29/24 14:09 11/29/24 14:09 11/29/24 14:09 - General well developed, well nourished, no distress - Eyes PERRL - ENT normal pinna - Neck no masses - Respiratory normal expansion - Cardiovascular Rhythm: regular - Abdomen Abdomen: soft, non tender Assessment and Plan Assessment: Will perform screening colonoscopy
--- NOTE | 2024-11-29 15:06 | P.OP ---
Date of Procedure: 11/29/24 Preoperative Diagnosis: Screening colonoscopy Postoperative Diagnosis: Rectal biopsy pathology pending possible neoplasm Procedure(s) Performed: Colonoscopy Anesthesia: MAC Surgeon: Gwyn Martin Pathology: other (Rectal biopsy) Condition: stable Disposition: PACU Description of Procedure: Patient was placed on the endoscopy table in the lateral position. He received IV sedation. Digital rectal exam was performed. There appeared to be some firmness of the rectum. The colonoscope was then placed patient Anaspaz throughout the colon. The colonoscope could not be advanced beyond the left colon secondary to poor bowel prep. There was a large amount of solid stool in the colon. Scope was withdrawn. The visualized sigmoid colon appeared normal. In the rectum appeared to be in evidence of possible neoplasm mucosa appeared to be inflamed. This area was biopsied with a cold forcep. The scope was then withdrawn. And then the scope was withdrawn for the patient.
[2024-11-29 15:13] VITALS: RESP 18
[2024-11-29 15:30] VITALS: BP 93/54; PULSE 75
== END 2024-11-29 15:53 | disposition home or self-care (01) ==
LOC: ORWHC2ENDO 13:41
PROVIDERS: ATTEND Surgery
DX: Z12.11 Encounter for screening for malignant neoplasm of colon (principal); K62.1 Rectal polyp
CPT/HCPCS: 88305; 45380; J2704